=== PATIENT | male | born 1940 | race Caucasian/White ===

== ENCOUNTER 2018-01-14 10:05 | Inpatient (IN) | payer MEDICARE ==
[~2018-01-14] VITALS: Ht 180.3 cm; Wt 104.5 kg
[~2018-01-14 10:05] MED LIST: ALBU90OI6 INH; ASPI325EC PO; ASPI81CH PO; CARV6.25 PO; CEPH500 PO; CETI5 PO; DIGO.125 PO; DILT120 PO; FEBU40TA PO; FOLI1 PO; FURO20 PO; Ferosul325 MG PO; HYDCOR1TC TOP; LORA1 PO; Lisinopril2.5 MG PO; METO2.5 PO; MULVITMIND PO; THIA100 PO; VITAMIN B COMPLEX PO; XARELTO15 MG PO
[2018-01-14 10:20] LABS: Calcium, Ionized (POC) 1.06 mmol/L (1.10-1.46); Chloride (POC) 85 mmol/L (98-108); Creatinine (POC) 2.2 mg/dL (0.8-1.3); Glucose (ISTAT POC) 190 mg/dL (70-99); Hemoglobin (POC) 9.5 g/dL (13.5-17.5); Sodium (POC) 133 mmol/L (135-148); Total CO2 (POC) 36 mmol/L (21-32)
[2018-01-14 10:23] LABS: BASOPHILS ABSOLUTE AUTO 0.07 K/mm3 (0.00-0.23); BASOPHILS PERCENT AUTO 1 % (0-2); EOSINOPHILS ABSOLUTE AUTO 0.14 K/mm3 (0.00-0.68); EOSINOPHILS PERCENT AUTO 1 % (0-6); Hematocrit 28.4 % (37.0-53.0); Hemoglobin 9.9 g/dL (13.5-17.5); IMMATURE GRAN ABSOLUTE AUTO 0.49 K/mm3 (0.00-0.10); IMMATURE GRAN PERCENT AUTO 4 % (0-1); LYMPHOCYTES ABSOLUTE AUTO 1.89 K/mm3 (0.84-5.20); LYMPHOCYTES PERCENT AUTO 15 % (21-46); MONOCYTES PERCENT AUTO 19 % (4-13); Mean Corpuscular HGB 35.7 pg (26.0-34.0); Mean Corpuscular HGB Conc 34.9 g/dL (31.5-36.5); Mean Corpuscular Volume 103 fL (80-100); Mean Platelet Volume 9.2 fL (9.1-12.4); NEUTROPHILS ABSOLUTE AUTO 7.66 K/mm3 (1.96-9.15); NEUTROPHILS PERCENT AUTO 61 % (41-73); NRBC ABSOLUTE 0.02 K/mm3 (0.00-0.02); NRBC Auto 0.2 /100 WBC (0.0-0.2); Platelet Count 215 K/mm3 (150-400); RDW Coefficient Variation 12.4 % (11.7-14.2); RDW Standard Deviation 45.4 fL (35.1-46.3); Red Blood Cell Count 2.77 M/mm3 (4.30-5.90); White Blood Cell Count 12.65 K/mm3 (4.00-11.30)
[2018-01-14 10:34] LABS: International Normalized Ratio 1.26; Prothrombin Time Results 13.2 Sec (9.7-11.5)
[2018-01-14] MEDS ORDERED: FURO40 (10:35)
[2018-01-14] MEDS ORDERED: Zyloprim100 MG PO (10:36)
[2018-01-14 10:46] LABS: Alanine Aminotransfer (ALT/SGP 61 U/L (12-78); Albumin, Blood 2.8 g/dL (3.4-5.0); Albumin/Globulin Ratio 0.7 (0.8-1.8); Alk Phos 79 U/L (50-136); Anion Gap 12 mmol/L (6-16); Aspartate Aminotrans (AST/SGOT 38 U/L (12-37); Bilirubin, Total 0.8 mg/dL (0.1-1.0); Blood Urea Nitrogen 47 mg/dL (8-24); Bun/Creatinine Ratio 23.6 (12.0-20.0); CO2, Blood 33 mmol/L (21-32); Calcium, Blood 8.9 mg/dL (8.5-10.1); Chloride, Blood 89 mmol/L (98-108); Creatinine, Blood 1.99 mg/dL (0.60-1.20); Globulin, Blood 3.9 g/dL (2.2-4.0); Glomerular Filtration Rate 35 (60-); Glucose, Blood 188 mg/dL (70-99); Magnesium, Blood 1.6 mg/dL (1.6-2.4); Sodium, Blood 134 mmol/L (136-145); Total Protein, Blood 6.7 g/dL (6.4-8.2); Troponin I <0.015 ng/mL (0.000-0.040)
[2018-01-14] MEDS ORDERED: THERA M PLUS T1 EACH PO (14:02)
[2018-01-14] MEDS ORDERED: CHOL10002 PO (14:03)
[2018-01-14 15:03] LABS: Hematocrit 25.2 % (37.0-53.0); Hemoglobin 8.7 g/dL (13.5-17.5)
[2018-01-14 15:37] LABS: Blood, Urine 1+ (Neg); Glucose Qualitative, Urine Neg (Neg); Ketones, Urine 2+ (Neg); Leukocyte Esterase, Urine 2+ (Neg); Nitrite, Urine Neg (Neg); Protein, Urine 2+ (Neg); Urobilinogen, Urine 2+ (Normal)
[2018-01-14 16:07] LABS: Appearance, Urine Hazy (Clear); Color, Urine Yellow (P-Yellow)
[2018-01-14 16:09] LABS: Red Blood Cells, Urine Not Seen /hpf (0-2); White Blood Cells, Urine Not Seen /hpf (0-5)
[2018-01-14 16:11] LABS: Bacteria Not Seen /hpf; Squamous Epithelial Cells Not Seen /hpf (Few)
[2018-01-14 20:40] LABS: Hematocrit 22.3 % (37.0-53.0); Hemoglobin 7.6 g/dL (13.5-17.5)
[2018-01-15 02:13] LABS: Hematocrit 22.9 % (37.0-53.0); Hemoglobin 7.7 g/dL (13.5-17.5)
[2018-01-15 02:29] LABS: Creatinine, Blood 2.15 mg/dL (0.60-1.20); Potassium, Blood 3.2 mmol/L (3.5-5.5)
[2018-01-15 08:19] LABS: Hematocrit 22.1 % (37.0-53.0); Hemoglobin 7.5 g/dL (13.5-17.5)
[2018-01-15 14:32] LABS: Hematocrit 21.3 % (37.0-53.0); Hemoglobin 7.5 g/dL (13.5-17.5)
[2018-01-16 04:43] LABS: Bun/Creatinine Ratio 22.2 (12.0-20.0); Creatinine, Blood 1.85 mg/dL (0.60-1.20); Potassium, Blood 3.5 mmol/L (3.5-5.5)
[2018-01-16 10:51] LABS: Hematocrit 21.7 % (37.0-53.0); Hemoglobin 7.4 g/dL (13.5-17.5)
[2018-01-16 22:10] LABS: Hematocrit 21.1 % (37.0-53.0); Hemoglobin 7.1 g/dL (13.5-17.5)
[2018-01-17 04:42] LABS: Bun/Creatinine Ratio 21.3 (12.0-20.0); Calcium, Blood 7.8 mg/dL (8.5-10.1); Creatinine, Blood 1.74 mg/dL (0.60-1.20); Potassium, Blood 3.3 mmol/L (3.5-5.5)
[2018-01-17 10:05] LABS: Hematocrit 22.6 % (37.0-53.0); Hemoglobin 7.7 g/dL (13.5-17.5)
[2018-01-17 22:09] LABS: Hematocrit 23.2 % (37.0-53.0); Hemoglobin 7.7 g/dL (13.5-17.5)
[2018-01-18 04:17] LABS: BASOPHILS ABSOLUTE AUTO 0.01 K/mm3 (0.00-0.23); BASOPHILS PERCENT AUTO 0 % (0-2); EOSINOPHILS ABSOLUTE AUTO 0.13 K/mm3 (0.00-0.68); EOSINOPHILS PERCENT AUTO 2 % (0-6); Hematocrit 21.6 % (37.0-53.0); Hemoglobin 7.4 g/dL (13.5-17.5); IMMATURE GRAN ABSOLUTE AUTO 0.19 K/mm3 (0.00-0.10); IMMATURE GRAN PERCENT AUTO 4 % (0-1); LYMPHOCYTES ABSOLUTE AUTO 0.92 K/mm3 (0.84-5.20); LYMPHOCYTES PERCENT AUTO 17 % (21-46); MONOCYTES ABSOLUTE AUTO 1.16 K/mm3 (0.16-1.47); MONOCYTES PERCENT AUTO 22 % (4-13); Mean Corpuscular HGB 35.6 pg (26.0-34.0); Mean Corpuscular HGB Conc 34.3 g/dL (31.5-36.5); Mean Corpuscular Volume 104 fL (80-100); Mean Platelet Volume 8.9 fL (9.1-12.4); NEUTROPHILS ABSOLUTE AUTO 2.97 K/mm3 (1.96-9.15); NEUTROPHILS PERCENT AUTO 55 % (41-73); Platelet Count 153 K/mm3 (150-400); RDW Coefficient Variation 13.7 % (11.7-14.2); RDW Standard Deviation 50.6 fL (35.1-46.3); Red Blood Cell Count 2.08 M/mm3 (4.30-5.90); White Blood Cell Count 5.38 K/mm3 (4.00-11.30)
[2018-01-18 04:35] LABS: Bun/Creatinine Ratio 17.8 (12.0-20.0); Calcium, Blood 7.9 mg/dL (8.5-10.1); Creatinine, Blood 1.69 mg/dL (0.60-1.20); Potassium, Blood 3.6 mmol/L (3.5-5.5)
[2018-01-19 04:59] LABS: BASOPHILS ABSOLUTE AUTO 0.02 K/mm3 (0.00-0.23); BASOPHILS PERCENT AUTO 0 % (0-2); EOSINOPHILS ABSOLUTE AUTO 0.14 K/mm3 (0.00-0.68); EOSINOPHILS PERCENT AUTO 2 % (0-6); Hematocrit 26.2 % (37.0-53.0); Hemoglobin 8.8 g/dL (13.5-17.5); IMMATURE GRAN ABSOLUTE AUTO 0.15 K/mm3 (0.00-0.10); IMMATURE GRAN PERCENT AUTO 2 % (0-1); LYMPHOCYTES PERCENT AUTO 16 % (21-46); MONOCYTES ABSOLUTE AUTO 1.05 K/mm3 (0.16-1.47); MONOCYTES PERCENT AUTO 17 % (4-13); Mean Corpuscular HGB 32.6 pg (26.0-34.0); Mean Corpuscular HGB Conc 33.6 g/dL (31.5-36.5); Mean Platelet Volume 9.3 fL (9.1-12.4); NEUTROPHILS ABSOLUTE AUTO 3.92 K/mm3 (1.96-9.15); NEUTROPHILS PERCENT AUTO 63 % (41-73); Platelet Count 180 K/mm3 (150-400); RDW Coefficient Variation 19.4 % (11.7-14.2); White Blood Cell Count 6.28 K/mm3 (4.00-11.30)
[2018-01-19 05:01] LABS: Mean Corpuscular Volume 97 fL (80-100)
[2018-01-19 05:16] LABS: Albumin, Blood 2.2 g/dL (3.4-5.0); Anion Gap 8 mmol/L (6-16); Blood Urea Nitrogen 24 mg/dL (8-24); Bun/Creatinine Ratio 15.3 (12.0-20.0); CO2, Blood 31 mmol/L (21-32); Chloride, Blood 97 mmol/L (98-108); Creatinine, Blood 1.57 mg/dL (0.60-1.20); Glomerular Filtration Rate 46 (60-); Glucose, Blood 99 mg/dL (70-99); Potassium, Blood 3.6 mmol/L (3.5-5.5); Sodium, Blood 136 mmol/L (136-145)
[2018-01-20 04:44] LABS: BASOPHILS ABSOLUTE AUTO 0.03 K/mm3 (0.00-0.23); BASOPHILS PERCENT AUTO 0 % (0-2); EOSINOPHILS ABSOLUTE AUTO 0.15 K/mm3 (0.00-0.68); EOSINOPHILS PERCENT AUTO 2 % (0-6); Hematocrit 27.1 % (37.0-53.0); Hemoglobin 9.1 g/dL (13.5-17.5); IMMATURE GRAN ABSOLUTE AUTO 0.11 K/mm3 (0.00-0.10); IMMATURE GRAN PERCENT AUTO 1 % (0-1); LYMPHOCYTES ABSOLUTE AUTO 0.92 K/mm3 (0.84-5.20); LYMPHOCYTES PERCENT AUTO 12 % (21-46); MONOCYTES ABSOLUTE AUTO 0.84 K/mm3 (0.16-1.47); MONOCYTES PERCENT AUTO 11 % (4-13); Mean Corpuscular HGB 33.2 pg (26.0-34.0); Mean Corpuscular HGB Conc 33.6 g/dL (31.5-36.5); Mean Corpuscular Volume 99 fL (80-100); NEUTROPHILS ABSOLUTE AUTO 5.62 K/mm3 (1.96-9.15); NEUTROPHILS PERCENT AUTO 73 % (41-73); Platelet Count 193 K/mm3 (150-400); RDW Standard Deviation 64.7 fL (35.1-46.3); Red Blood Cell Count 2.74 M/mm3 (4.30-5.90); White Blood Cell Count 7.67 K/mm3 (4.00-11.30)
[2018-01-20 05:10] LABS: Albumin, Blood 2.3 g/dL (3.4-5.0); Anion Gap 8 mmol/L (6-16); Blood Urea Nitrogen 23 mg/dL (8-24); Bun/Creatinine Ratio 14.6 (12.0-20.0); CO2, Blood 29 mmol/L (21-32); Calcium, Blood 8.2 mg/dL (8.5-10.1); Chloride, Blood 98 mmol/L (98-108); Creatinine, Blood 1.57 mg/dL (0.60-1.20); Glomerular Filtration Rate 46 (60-); Glucose, Blood 105 mg/dL (70-99); Phosphorus, Blood 2.3 mg/dL (2.5-4.9); Potassium, Blood 3.8 mmol/L (3.5-5.5); Sodium, Blood 135 mmol/L (136-145)
[2018-01-21 03:55] LABS: Hematocrit 27.4 % (37.0-53.0); Hemoglobin 9.1 g/dL (13.5-17.5); Mean Corpuscular HGB 32.4 pg (26.0-34.0); Mean Corpuscular HGB Conc 33.2 g/dL (31.5-36.5); Mean Corpuscular Volume 98 fL (80-100); Mean Platelet Volume 9.3 fL (9.1-12.4); Platelet Count 199 K/mm3 (150-400); RDW Coefficient Variation 16.9 % (11.7-14.2); RDW Standard Deviation 59.7 fL (35.1-46.3); Red Blood Cell Count 2.81 M/mm3 (4.30-5.90)
[2018-01-21 04:09] LABS: Albumin, Blood 2.4 g/dL (3.4-5.0); Anion Gap 8 mmol/L (6-16); Blood Urea Nitrogen 22 mg/dL (8-24); Bun/Creatinine Ratio 14.6 (12.0-20.0); CO2, Blood 28 mmol/L (21-32); Calcium, Blood 8.3 mg/dL (8.5-10.1); Chloride, Blood 99 mmol/L (98-108); Creatinine, Blood 1.51 mg/dL (0.60-1.20); Glomerular Filtration Rate 48 (60-); Glucose, Blood 98 mg/dL (70-99); Phosphorus, Blood 2.5 mg/dL (2.5-4.9); Potassium, Blood 3.8 mmol/L (3.5-5.5); Sodium, Blood 135 mmol/L (136-145)
[2018-01-21] MEDS ORDERED: THIA100 PO (13:06)
[2018-01-21] MEDS ORDERED: FOLI1 PO (13:07)
[2018-01-21] MEDS ORDERED: PANT40 PO (13:07)
== END 2018-01-21 14:20 | disposition home or self-care (01) | DRG 378 ==
LOC: ER 10:05 → ICUE 11:28 → MEDS 11:28 → PCU 11:28 → ER 12:32 → ICUE 13:46 → PCU 01-15 17:22 → SURS 01-17 19:53
PROVIDERS: Emergency Medicine; Family Medicine; Internal Medicine Gastroenterology; Student in an Organized Health Care Education/Training Program
PROC: 0DJ08ZZ Inspection of Upper Intestinal Tract, Via Natural or Artificial Opening Endoscopic (ICD-10-PCS; principal; 2018-01-14)
PROC: 5A09357 Assistance with Respiratory Ventilation, Less than 24 Consecutive Hours, Continuous Positive Airway Pressure (ICD-10-PCS; 2018-01-14)
DX: K92.2 Gastrointestinal hemorrhage, unspecified (principal); I13.0 Hypertensive heart and chronic kidney disease with heart failure and stage 1 through stage 4 chronic kidney disease, or unspecified chronic kidney disease; I50.32 Chronic diastolic (congestive) heart failure; D62 Acute posthemorrhagic anemia; I42.9 Cardiomyopathy, unspecified; R55 Syncope and collapse; E86.1 Hypovolemia; I95.9 Hypotension, unspecified; G47.33 Obstructive sleep apnea (adult) (pediatric); N28.9 Disorder of kidney and ureter, unspecified; I48.2 Chronic atrial fibrillation; E66.9 Obesity, unspecified; N18.3 Chronic kidney disease, stage 3 (moderate); K59.00 Constipation, unspecified; F10.20 Alcohol dependence, uncomplicated; E87.6 Hypokalemia; D75.1 Secondary polycythemia; R26.81 Unsteadiness on feet; R74.8 Abnormal levels of other serum enzymes; R16.2 Hepatomegaly with splenomegaly, not elsewhere classified; K29.60 Other gastritis without bleeding; K29.80 Duodenitis without bleeding; Z66 Do not resuscitate; Z68.30 Body mass index [BMI] 30.0-30.9, adult; Z88.2 Allergy status to sulfonamides; Z79.01 Long term (current) use of anticoagulants; Z79.899 Other long term (current) drug therapy
CPT/HCPCS: 36415; 71045; 74018; 80047; 80048; 80053; 80069; 81001; 82272; 83605; 83735; 83880; 84484; 85014; 85018; 85025; 85027; 85610; 86850; 86900; 86901; 86923; 93005; 93010; 94660; 94760; 94762; 96365; 96375; 97116; 97161; 97530; 99285; C9113; G0480; G8978; G8979; J1650; J3480; J7030; J7060; J7120; P9016

== ENCOUNTER → 2018-05-27 | Outpatient (CLI) | payer MEDICARE ==
[~2018-05-27] MED LIST changes: +CHOL10002 PO; +FURO40; +PANT40 PO; +THERA M PLUS T1 EACH PO; +Zyloprim100 MG PO
[2018-05-27 15:20] LABS: BASOPHILS ABSOLUTE AUTO 0.03 K/mm3 (0.00-0.23); BASOPHILS PERCENT AUTO 0 % (0-2); EOSINOPHILS ABSOLUTE AUTO 0.04 K/mm3 (0.00-0.68); EOSINOPHILS PERCENT AUTO 0 % (0-6); Hematocrit 35.3 % (37.0-53.0); IMMATURE GRAN ABSOLUTE AUTO 0.26 K/mm3 (0.00-0.10); IMMATURE GRAN PERCENT AUTO 2 % (0-1); LYMPHOCYTES ABSOLUTE AUTO 0.53 K/mm3 (0.84-5.20); LYMPHOCYTES PERCENT AUTO 3 % (21-46); MONOCYTES ABSOLUTE AUTO 1.36 K/mm3 (0.16-1.47); MONOCYTES PERCENT AUTO 9 % (4-13); Mean Corpuscular HGB 34.7 pg (26.0-34.0); Mean Corpuscular HGB Conc 36.8 g/dL (31.5-36.5); Mean Corpuscular Volume 94 fL (80-100); Mean Platelet Volume 9.2 fL (9.1-12.4); NEUTROPHILS ABSOLUTE AUTO 13.26 K/mm3 (1.96-9.15); NEUTROPHILS PERCENT AUTO 86 % (41-73); Platelet Count 180 K/mm3 (150-400); RDW Coefficient Variation 12.1 % (11.7-14.2); RDW Standard Deviation 41.5 fL (35.1-46.3); Red Blood Cell Count 3.75 M/mm3 (4.30-5.90); White Blood Cell Count 15.48 K/mm3 (4.00-11.30)
[2018-05-27 15:34] LABS: Alanine Aminotransfer (ALT/SGP 124 U/L (12-78); Albumin, Blood 3.3 g/dL (3.4-5.0); Albumin/Globulin Ratio 0.8 (0.8-1.8); Alk Phos 95 U/L (40-126); Anion Gap 17 mmol/L (6-16); Aspartate Aminotrans (AST/SGOT 45 U/L (12-37); Bilirubin, Total 1.4 mg/dL (0.1-1.0); Blood Urea Nitrogen 30 mg/dL (8-24); Bun/Creatinine Ratio 10.1 (12.0-20.0); CO2, Blood 23 mmol/L (21-32); Calcium, Blood 9.6 mg/dL (8.5-10.1); Chloride, Blood 83 mmol/L (98-108); Creatinine, Blood 2.97 mg/dL (0.60-1.20); Globulin, Blood 3.9 g/dL (2.2-4.0); Glomerular Filtration Rate 21 (60-); Glucose, Blood 160 mg/dL (70-99); Potassium, Blood 3.8 mmol/L (3.5-5.5); Sodium, Blood 123 mmol/L (136-145); Total Protein, Blood 7.2 g/dL (6.4-8.2)
[2018-05-27 15:35] LABS: Troponin I <0.017 ng/mL (0.000-0.040)
== END | disposition home or self-care (01) ==
LOC: LAB EV 15:16 → LAB SHORT 15:16
PROVIDERS: Physician Assistant
DX: R07.9 Chest pain, unspecified (principal); R53.83 Other fatigue
CPT/HCPCS: 80053; 83880; 84484; 85025; 87086; 87147

== ENCOUNTER 2019-05-10 11:09 | Inpatient (IN) | payer MEDICARE ==
[~2019-05-10] VITALS: Ht 180.3 cm; Wt 121.4 kg
[~2019-05-10 11:09] MED LIST changes: -CHOL10002 PO; -FURO40; -Ferosul325 MG PO; -PANT40 PO; -THERA M PLUS T1 EACH PO; -VITAMIN B COMPLEX PO; -Zyloprim100 MG PO
[2019-05-10 11:44] LABS: BASOPHILS ABSOLUTE AUTO 0.03 K/mm3 (0.00-0.23); BASOPHILS PERCENT AUTO 0 % (0-2); EOSINOPHILS ABSOLUTE AUTO 0.19 K/mm3 (0.00-0.68); EOSINOPHILS PERCENT AUTO 2 % (0-6); Hematocrit 33.4 % (37.0-53.0); Hemoglobin 11.4 g/dL (13.5-17.5); IMMATURE GRAN PERCENT AUTO 3 % (0-1); LYMPHOCYTES ABSOLUTE AUTO 0.88 K/mm3 (0.84-5.20); LYMPHOCYTES PERCENT AUTO 11 % (21-46); MONOCYTES ABSOLUTE AUTO 1.01 K/mm3 (0.16-1.47); MONOCYTES PERCENT AUTO 13 % (4-13); Mean Corpuscular HGB 34.3 pg (26.0-34.0); Mean Corpuscular HGB Conc 34.1 g/dL (31.5-36.5); Mean Corpuscular Volume 101 fL (80-100); Mean Platelet Volume 9.4 fL (9.1-12.4); NEUTROPHILS ABSOLUTE AUTO 5.76 K/mm3 (1.96-9.15); NEUTROPHILS PERCENT AUTO 71 % (41-73); Platelet Count 117 K/mm3 (150-400); RDW Coefficient Variation 12.6 % (11.7-14.2); RDW Standard Deviation 46.6 fL (35.1-46.3); Red Blood Cell Count 3.32 M/mm3 (4.30-5.90); White Blood Cell Count 8.07 K/mm3 (4.00-11.30)
[2019-05-10 12:00] LABS: Alanine Aminotransfer (ALT/SGP 96 U/L (12-78); Albumin/Globulin Ratio 0.8 (0.8-1.8); Alk Phos 169 U/L (50-136); Anion Gap 12 mmol/L (6-16); Aspartate Aminotrans (AST/SGOT 50 U/L (12-37); Bilirubin, Total 1.3 mg/dL (0.1-1.0); Blood Urea Nitrogen 60 mg/dL (8-24); Bun/Creatinine Ratio 9.5 (12.0-20.0); CO2, Blood 26 mmol/L (21-32); Calcium, Blood 8.5 mg/dL (8.5-10.1); Chloride, Blood 85 mmol/L (98-108); Creatinine, Blood 6.32 mg/dL (0.60-1.20); Glomerular Filtration Rate 9 (60-); Glucose, Blood 126 mg/dL (70-99); Potassium, Blood 4.3 mmol/L (3.5-5.5); Sodium, Blood 123 mmol/L (136-145); Troponin I <0.015 ng/mL (0.000-0.040)
[2019-05-10] MEDS ORDERED: Coreg12.5 MG PO (14:26)
[2019-05-10] MEDS ORDERED: Zyloprim100 MG PO (14:26)
[2019-05-10] MEDS ORDERED: PANT40 PO (14:27)
[2019-05-10] MEDS ORDERED: Ferosul325 MG PO (14:52)
[2019-05-10] MEDS ORDERED: FURO40 PO (14:53)
[2019-05-10] MEDS ORDERED: THERA M PLUS T1 EACH PO (14:53)
[2019-05-10] MEDS ORDERED: VITAMIN D31000 UNI2 PO (14:53)
[2019-05-10] MEDS ORDERED: VITAMIN B COMP1 EACH PO (14:53)
[2019-05-10 15:37] LABS: Percent Saturation 95.3 % (20.0-50.0)
--- NOTE | 2019-05-10 19:40 | NUR ---
PATIENT TALKING THROUGH HIS TEETH. PATIENT ASKED IF HE FEELS DIFFERENT, STATES HE DOES BUT DOESN'T KNOW HOW. PATIENT DENIES ANY PAIN. PATIENT IS NOT MAKING ANY INDEPENDENT MOVEMENTS. REPOSITIONED WITH POSTAL SORTING OFFICER. PATIENT BLADDER SCANNED HAS ONLY 36CC NOTED IN THE BLADDER. APPLIED POWDER TO REDNESS IN GROINING,
[2019-05-11 04:02] LABS: BASOPHILS ABSOLUTE AUTO 0.05 K/mm3 (0.00-0.23); BASOPHILS PERCENT AUTO 1 % (0-2); EOSINOPHILS PERCENT AUTO 3 % (0-6); Hematocrit 29.9 % (37.0-53.0); Hemoglobin 10.4 g/dL (13.5-17.5); IMMATURE GRAN ABSOLUTE AUTO 0.25 K/mm3 (0.00-0.10); IMMATURE GRAN PERCENT AUTO 4 % (0-1); LYMPHOCYTES PERCENT AUTO 12 % (21-46); MONOCYTES ABSOLUTE AUTO 0.95 K/mm3 (0.16-1.47); MONOCYTES PERCENT AUTO 14 % (4-13); Mean Corpuscular HGB 35.5 pg (26.0-34.0); Mean Corpuscular HGB Conc 34.8 g/dL (31.5-36.5); Mean Corpuscular Volume 102 fL (80-100); Mean Platelet Volume 9.5 fL (9.1-12.4); NEUTROPHILS ABSOLUTE AUTO 4.38 K/mm3 (1.96-9.15); NEUTROPHILS PERCENT AUTO 66 % (41-73); Platelet Count 112 K/mm3 (150-400); RDW Coefficient Variation 12.6 % (11.7-14.2); RDW Standard Deviation 47.3 fL (35.1-46.3); Red Blood Cell Count 2.93 M/mm3 (4.30-5.90); White Blood Cell Count 6.63 K/mm3 (4.00-11.30)
[2019-05-11 04:21] LABS: Alanine Aminotransfer (ALT/SGP 80 U/L (12-78); Albumin, Blood 2.6 g/dL (3.4-5.0); Albumin/Globulin Ratio 0.8 (0.8-1.8); Alk Phos 146 U/L (50-136); Anion Gap 12 mmol/L (6-16); Aspartate Aminotrans (AST/SGOT 41 U/L (12-37); Bilirubin, Total 1.2 mg/dL (0.1-1.0); Blood Urea Nitrogen 65 mg/dL (8-24); Bun/Creatinine Ratio 10.1 (12.0-20.0); CO2, Blood 25 mmol/L (21-32); Calcium, Blood 8.3 mg/dL (8.5-10.1); Chloride, Blood 88 mmol/L (98-108); Creatinine, Blood 6.46 mg/dL (0.60-1.20); Globulin, Blood 3.3 g/dL (2.2-4.0); Glomerular Filtration Rate 9 (60-); Glucose, Blood 141 mg/dL (70-99); Magnesium, Blood 1.7 mg/dL (1.6-2.4); Phosphorus, Blood 2.5 mg/dL (2.5-4.9); Potassium, Blood 3.9 mmol/L (3.5-5.5); Sodium, Blood 125 mmol/L (136-145); Total Protein, Blood 5.9 g/dL (6.4-8.2)
--- NOTE | 2019-05-11 05:47 | NUR ---
PATIENT HAS NOT SLEPT MUCH THROUGHT THE NIGHT. PATIENT WITH IN THE LAST HOUR OR SO STARTED TO MOVE AROUND IN THE BED INDEPENDENTLY. PATIENT REPOSITIONED FREQUENTLY. NPO AT THIS TIME. VITALS STABLE.
--- NOTE | 2019-05-11 08:07 | NUR ---
COREG VS MIDODRINE CALLED DR BASSETT TO GET HER INSIGHT IN GIVING COREG AND MIDODRINE. PT BP NOT LOW. AFIB WELL CONTROLLED. CONTINUE POT.
[2019-05-12 04:05] LABS: Hematocrit 29.9 % (37.0-53.0); Hemoglobin 10.2 g/dL (13.5-17.5)
[2019-05-12 04:35] LABS: Albumin, Blood 2.7 g/dL (3.4-5.0); Albumin/Globulin Ratio 0.8 (0.8-1.8); Bilirubin, Direct 0.6 mg/dL (0.0-0.3); Bilirubin, Indirect 0.4 mg/dL (0.1-0.7); Bun/Creatinine Ratio 11.2 (12.0-20.0); Calcium, Blood 8.4 mg/dL (8.5-10.1); Creatinine, Blood 6.34 mg/dL (0.60-1.20); Globulin, Blood 3.2 g/dL (2.2-4.0); Magnesium, Blood 1.6 mg/dL (1.6-2.4); Potassium, Blood 4.1 mmol/L (3.5-5.5); Total Protein, Blood 5.9 g/dL (6.4-8.2); Uric Acid, Blood 11.9 mg/dL (3.5-7.2)
--- NOTE | 2019-05-12 05:09 | NUR ---
SHIFT SUMMARY PT HAS REMAINED AOX4 THROUGHOUT THE NIGHT. VSS. PLEASANT AND COOPERATIVE WITH CARE. PT HAS REMAINED ON BEDREST AND ASSISTED WITH REPOSITIONING THROUGHOUT THE NIGHT. HAS RESTED THROUGHOUT SOME OF THE NIGHT WITH HOME BIPAP IN PLACE WITH 3L O2 BLEED IN. PT REPORTS THAT HE OCCASIONALLY WILL USE 2-3L O2 AT HOME NEEDED. O2 SATS HAVE REMAINED >90% ON RA OR HOME BIPAP. PT HAS BEEN INCONTINENT OF STOOL MULTIPLE TIMES THROUGHOUT THE NIGHT. MALONE CATHETER WITH MINIMAL OUTPUT AND REMAINS IN BUCKET OF ICE FOR 24HOUR URINE SCREENING THAT ENDS AT APPROXIMATELY 1000 THIS AM. PT MEDICATED ONCE FOR PAIN TO ABDOMEN THAT DECREASED WITH ORDERED MEDICATIONS. NO OTHER CHANGES NOTED FROM INITIAL ASSESSMENT. BED IN LOW POSITIONK, CALL LIGHT IN REACH. BED ALARM SET FOR SAFETY.
[2019-05-12 12:46] LABS: Protein, Urine Quantitative 122.6 mg/dL (0.0-11.9)
[2019-05-12 16:39] LABS: Source, Urine Clean Catch
[2019-05-12 16:43] LABS: Bilirubin, Urine Neg (Neg); Blood, Urine 5+ (Neg); Glucose Qualitative, Urine Neg (Neg); Ketones, Urine Neg (Neg); Leukocyte Esterase, Urine 2+ (Neg); Nitrite, Urine Neg (Neg); Protein, Urine 1+ (Neg); Urobilinogen, Urine NORM (Normal)
[2019-05-12 16:49] LABS: Appearance, Urine Clear (Clear); Color, Urine Yellow (P-Yellow)
[2019-05-12 16:50] LABS: Red Blood Cells, Urine 25-50 /hpf (0-2)
[2019-05-12 16:51] LABS: Bacteria Few /hpf; Squamous Epithelial Cells Few /hpf (Few)
--- NOTE | 2019-05-12 18:11 | NUR ---
SHIFT SUMMARY PT ALERT AND ORIENTED. VS STABLE. O2 SATS REMAIN ABOVE 90% ON RA. PT USED HIS HOME BIPAP NEEDED WITH 3L BLEED IN FOR SLEEPING. PT DENIES ANY PAIN. PT REFUSED TO GET UP TO CHAIR FOR MEALS. PT INCONTINENT OF BOWEL. ATTENDS IN PLACE. MALONE CATHETER PATENT AND DRAINING CLEAR YELLOW URINE. PT CONTINUES TO HAVE MINIMAL OUTPUT. CLINIMIX INFUSING PER ORDERS. PT REPOSITIONED Q2H. WILL CONTINUE TO MONITOR AND REPORT TO ONCOMING RN. CALL LIGHT IN REACH.
--- NOTE | 2019-05-12 23:42 | NUR ---
PROVIDER CONTACTED PT REQUESTING MEDICATION TO HELP HIM SLEEP. PT REPORTS THAT HE DOES NOT NORMALLY REQUIRE MEDICATION TO HELP HIM SLEEP AT HOME. [facility] EM CONTACTED AND ORDERS RECEIVED FOR MELATONIN 5MG PO. WILL INPUT ORDERS AND ADMINISTER.
[2019-05-13 05:02] LABS: Hemoglobin 10.2 g/dL (13.5-17.5)
[2019-05-13 05:25] LABS: Albumin, Blood 2.7 g/dL (3.4-5.0); Anion Gap 10 mmol/L (6-16); Blood Urea Nitrogen 77 mg/dL (8-24); Bun/Creatinine Ratio 12.7 (12.0-20.0); CO2, Blood 24 mmol/L (21-32); Calcium, Blood 8.2 mg/dL (8.5-10.1); Chloride, Blood 93 mmol/L (98-108); Creatinine, Blood 6.08 mg/dL (0.60-1.20); Glomerular Filtration Rate 10 (60-); Glucose, Blood 137 mg/dL (70-99); Magnesium, Blood 1.7 mg/dL (1.6-2.4); Phosphorus, Blood 2.7 mg/dL (2.5-4.9); Potassium, Blood 4.2 mmol/L (3.5-5.5); Sodium, Blood 127 mmol/L (136-145)
--- NOTE | 2019-05-13 05:33 | NUR ---
SHIFT SUMMARY PT HAS REMAINED AOX4 THROUGHOUT SHIFT. VSS. PLEASANT AND COOPERATIVE WITH CARE. PT HAS RESTED IN BED THROUGHOUT THE NIGHT. PT ASSISTS WITH TURNS WHEN PROMPTED, BUT ALSO REFUSES TURNING MANY TIMES WHEN ATTEMPTED. PT REMAINS INCONTINENT OF STOOL; ENCOURAGED TO CALL FOR ASSISTANCE WITH BATHROOM USE TO PRESERVE SKIN INTEGRITY. PT HAS RESTED IN BED THROUGHOUT MUCH OF THE NIGHT WITH HOME BIPAP IN PLACE WITH 3L O2 BLEED IN. O2 SATS HAVE REMAINED >90% ON BIPAP OR RA WHILE AWAKE. NO OTHER CHANGES NOTED FROM INITIAL ASSESSMENT. WILL CONTINUE TO MONITOR AND REPORT TO ONCOMING SHIFT RN. BED IN LOW POSITION, CALL LIGHT IN REACH.
--- NOTE | 2019-05-13 18:50 | NUR ---
SHIFT SUMMARY PT ALERT AND ORIENTED. VS STABLE. 02 SATS REMAIN ABOVE 90% ON RA. PT USES HOME BIPAP WITH 3L BLEED IN NEEDED FOR SLEEPING. PT DENIES ANY PAIN THIS SHIFT. PT UP TO CHAIR FOR MEALS. PT CHANGED TO MEDICAL STATUS THIS SHIFT. WILL CONTINUE TO MONITOR AND REPORT TO ONCOMING RN. CALL LIGHT IN REACH.
--- NOTE | 2019-05-13 20:00 | NUR ---
ASSUMED CARE PT IS CURRENTLY AOX4 AND RESTING IN BED WITH HOME BIPAP IN PLACE WITH 3L O2 BLEED IN. PT WAKES EASILY TO ANSWER QUESTIONS, BUT WILL QUICKLY CLOSES EYES AFTER RESPONSE TO FALL BACK TO SLEEP. PT RECENTLY BACK TO BED FROM BEING UP IN CHAIR, AND TRANSFERED WITH MINIMAL ASSIST. LUNG SOUNDS CLEAR IN UPPER LOBES WITH DIMINISHED BASES. NOTED TO HAVE 3+ PEDAL EDEMA WITH 2+ PITTING EDEMA IN BLEs. PT ALSO NOTED TO HAVE SWELLING IN R ARM WITH SOME SLIGHT REDNESS UNDER POWERGLIDE SITE. PT DENIES ANY PAIN TO ARM AT REST OR ON PALPATION. POWERGLIDE APPEARS TO FLUSH WELL WITHOUT DISCOMFORT TO THE PATIENT, BUT DOES NOT HAVE BLOOD RETURN. POWERGLIDE REMOVED R/T POSSIBLE INFILTRATION. SKIN BLANCHES AROUND SITE. SOME MINIMAL BRUISING NOTED AT INSERTION SITE THAT HAS BEEN PRESENT SINCE INSERTION. CLINIMIX REMAINS INFUSING AT 75 ML/HR PER ORDERS. MALONE IN PLACE PATENT AND DRAINING TO GRAVITY. WILL CONTINUE WITH MONITORING AND ASSESSMENT. BED IN LOWEST POSITION, CALL LIGHT IN REACH.
--- NOTE | 2019-05-13 23:17 | NUR ---
PT TRANSFER REPORT CALLED TO MICHELLE FRANCOIS AND PT TRANSFERED TO ROOM 362. PT PERSONAL BELONGINGS OF HOME BIPAP AND GLASSES SENT WITH PATIENT TO FLOOR.
--- NOTE | 2019-05-13 23:44 | NUR ---
05/13/19 2330 Transfer from PCU via bed and walked to new bed. INSTRUCTED SIGNALS COLLECTION TECHNICIAN SYSTEM AND BIPAP SET UP PER RT AT 3 LPM. WARM BLANKET GIVEN AND INSTRUCTED TO CALL IF HE NEEDS TO GET UP. VERBALIZES UNDERSTANDING. BED ALARM ON.
[2019-05-14 06:04] LABS: Albumin, Blood 2.6 g/dL (3.4-5.0); Anion Gap 8 mmol/L (6-16); Blood Urea Nitrogen 87 mg/dL (8-24); Bun/Creatinine Ratio 15.8 (12.0-20.0); CO2, Blood 25 mmol/L (21-32); Calcium, Blood 8.3 mg/dL (8.5-10.1); Chloride, Blood 97 mmol/L (98-108); Creatinine, Blood 5.52 mg/dL (0.60-1.20); Glomerular Filtration Rate 11 (60-); Glucose, Blood 136 mg/dL (70-99); Magnesium, Blood 1.7 mg/dL (1.6-2.4); Phosphorus, Blood 2.9 mg/dL (2.5-4.9); Potassium, Blood 4.3 mmol/L (3.5-5.5); Sodium, Blood 130 mmol/L (136-145)
--- NOTE | 2019-05-14 06:43 | NUR ---
05/14/19 0600 PT SLEPT WELL WITH BIPAP AND CONTINOUS PULSE OXIMETER. O2 SATS >93%. MALONE CATH PATENT. CLINIMIX IV FLUIDS RUNNING AT 75 ML/HOUR. REFUSED TO TURN ON SIDE THIS AM.
[2019-05-14 07:08] LABS: ANTIGLOMERULAR BM AB 3 units (0-20)
--- NOTE | 2019-05-14 11:31 | NUR ---
PATIENT WAS ABLE TO SPEAK THIS AM AND NOW WON'T ANSWER ANY QUESTIONS. R HAND IS CLENCHED TIGHTLY AND PATIENT UNABLE TO RELEASE. VISIBLE TREMORS AND APPEARS VERY ANXIOUS. AT BEDSIDE AND STATES THAT PATIENT WAS NOT LIKE THIS YESTERDAY. HR 112, RESP 32, TEMP INCREASED TO 100.6. VEW SCORE OF 5. CHARGE NURSE OBDULIO AND PHYSICAL THERAPIST JAK WHO SAW THE PATIENT YESTERDAY AT BEDSIDE TO HELP ASSESS THIS PATIENT. DR. BASSETT NOTIFIED X2 OF CHANGES IN PATIENT CONDITION. NO ORDERS RECEIVED AT THIS TIME.
[2019-05-14 12:45] LABS: BASOPHILS ABSOLUTE AUTO 0.04 K/mm3 (0.00-0.23); BASOPHILS PERCENT AUTO 0 % (0-2); EOSINOPHILS ABSOLUTE AUTO 0.14 K/mm3 (0.00-0.68); EOSINOPHILS PERCENT AUTO 1 % (0-6); Hematocrit 31.5 % (37.0-53.0); Hemoglobin 10.6 g/dL (13.5-17.5); IMMATURE GRAN ABSOLUTE AUTO 0.61 K/mm3 (0.00-0.10); IMMATURE GRAN PERCENT AUTO 6 % (0-1); LYMPHOCYTES ABSOLUTE AUTO 0.52 K/mm3 (0.84-5.20); LYMPHOCYTES PERCENT AUTO 5 % (21-46); MONOCYTES ABSOLUTE AUTO 0.85 K/mm3 (0.16-1.47); MONOCYTES PERCENT AUTO 8 % (4-13); Mean Corpuscular HGB 34.3 pg (26.0-34.0); Mean Corpuscular HGB Conc 33.7 g/dL (31.5-36.5); Mean Corpuscular Volume 102 fL (80-100); Mean Platelet Volume 9.3 fL (9.1-12.4); NEUTROPHILS ABSOLUTE AUTO 7.93 K/mm3 (1.96-9.15); NEUTROPHILS PERCENT AUTO 79 % (41-73); NRBC ABSOLUTE 0.05 K/mm3 (0.00-0.02); NRBC Auto 0.5 /100 WBC (0.0-0.2); Platelet Count 103 K/mm3 (150-400); RDW Coefficient Variation 13.4 % (11.7-14.2); RDW Standard Deviation 49.6 fL (35.1-46.3); Red Blood Cell Count 3.09 M/mm3 (4.30-5.90); White Blood Cell Count 10.09 K/mm3 (4.00-11.30)
[2019-05-14 14:07] LABS: A/G RATIO 1.1 (0.7-1.7); ALBUMIN 2.9 g/dL (2.9-4.4); ALPHA-1-GLOBULIN 0.3 g/dL (0.0-0.4); ALPHA-2-GLOBULIN 0.6 g/dL (0.4-1.0); ANA DIRECT Negative (Negative); ANTIMYELOPEROXIDASE (MPO) ABS <9.0 U/mL (0.0-9.0); ANTIPROTEINASE 3 (PR-3) ABS <3.5 U/mL (0.0-3.5); ATYPICAL PANCA <1:20 titer (Neg:<1:20); BETA GLOBULIN 0.7 g/dL (0.7-1.3); CYTOPLASMIC (C-ANCA) <1:20 titer (Neg:<1:20); GAMMA GLOBULIN 1.2 g/dL (0.4-1.8); GLOBULIN, TOTAL 2.7 g/dL (2.2-3.9); IMMUNOGLOBULIN A, QN, SERUM 513 mg/dL (61-437); IMMUNOGLOBULIN G, QN, SERUM 1112 mg/dL (700-1600); IMMUNOGLOBULIN M, QN, SERUM 63 mg/dL (15-143); M-SPIKE Not Observed g/dL (Not Observed); PERINUCLEAR (P-ANCA) <1:20 titer (Neg:<1:20); PROTEIN, TOTAL, SERUM 5.6 g/dL (6.0-8.5)
[2019-05-14 14:40] LABS: Source, Urine Catheter
[2019-05-14 14:45] LABS: Appearance, Urine Hazy (Clear); Blood, Urine 5+ (Neg); Color, Urine Yellow (P-Yellow); Glucose Qualitative, Urine Neg (Neg); Ketones, Urine Neg (Neg); Leukocyte Esterase, Urine 2+ (Neg); Nitrite, Urine Neg (Neg); Protein, Urine 2+ (Neg); Specific Gravity, Urine 1.015 (1.003-1.022); Urobilinogen, Urine NORM (Normal)
[2019-05-14 14:58] LABS: Bilirubin, Urine 1+ (Neg)
[2019-05-14 14:59] LABS: Bacteria Few /hpf; Red Blood Cells, Urine TNTC /hpf (0-2); Squamous Epithelial Cells Few /hpf (Few)
--- NOTE | 2019-05-14 16:09 | NUR ---
CALLED DR. BASSETT AGAIN TO LET HER KNOW THAT PATIENT CONTINUES NOT TO RESPOND TO QUESTIONS OR COMMUNICATE WITH STAFF. ATTEMPTED TO GIVE PATIENT A DRINK FROM A STRAW AND HE WAS UNABLE TO FIGURE OUT HOW TO USE A STRAW. GAVE PATIENT A DRINK FROM A SPOON AND HE CHOKED ON THE WATER. DOLORES ARRIAGA WORKED WITH PATIENT YESTERDAY AND AGAIN TODAY AND REPORTS THAT PATIENT WAS A MIN ASSIST TO STAND YESTERDAY AND TODAY IS UNABLE TO SIT ON THE SIDE OF THE BED WITHOUT FALLING OVER. DR. BASSETT ORDERED TO KEEP AN EYE ON THE VITALS AND REPORT CHANGES, NO OTHER ORDERS RECEIVED.
--- NOTE | 2019-05-14 17:18 | NUR ---
PATIENT ABLE TO GET UP TO CHAIR THIS AM WITH 2 ASSIST AND ABLE TO FEED HIMSELF. AFTER BREAKFAST PATIENT ASKED TO GET BACK TO BED. PATIENT STARTING HAVING TREMORS AND BECOMING LESS RESPONSIVE WITH STAFF. SAYS WORDS AT TIMES AND THEN AT OTHERS TIMES WON'T RESPOND AT ALL. AT BEDSIDE THROUGHOUT THE DAY AND STATES THAT PATIENT IS MUCH WORSE TODAY THAN YESTERDAY. THIS EVENING PATIENT WAS UNABLE TO DRINK OUT OF A STRAW AND UNABLE TO FEED HIMSELF. DR. BASSETT NOTIFIED OF CHANGES IN CONDITION AND CAME TO SEE PATIENT. PATIENT REMAINS ON BIPAP WITH 3LO2 BLEED IN OR NC. 20G IV TO R FA WNL, CLINIMIX INFUSING AT 50ML/HR. FEVER OF 100.6 THIS AFTERNOON HAS COME BACK DOWN TO NORMAL. 2-3+ GENERALIZED EDEMA. MALONE TO GRAVITY WITH ADEQUATE U/O.
--- NOTE | 2019-05-15 04:32 | NUR ---
SHIFT SUMMARY: PT IS ALERT AND ORIENTED, LETHARGIC EARLY IN THE NIGHT, MORE AWAKE AT THIS TIME. PT IS CALM AND COOPERATIVE WITH CARE. PT IS A 2 ASSIST FOR TRANSFERS. PT DID NOT USE HIS CALL LIGHT OVERNIGHT. IN VISITING AT THE START OF THE NIGHT. PT SLEPT MOST OF THE NIGHT WHEN NOT DISTURBED. BANANA BAG RUNNING ORDERED. MALONE PATENT AND DRAINING YELLOW URINE. PT REPORTS R. LEG PAIN, GAVE PRN FENTANYL. PT DENIES NAUSEA, VOMITING, AND SOB. PT WORE CPAP OVERNIGHT WITH 3 L O2 BLEED-IN. NO ACUTE CHANGES. WILL REPORT TO DAY NURSE.
[2019-05-15 04:41] LABS: Hematocrit 28.1 % (37.0-53.0); Hemoglobin 9.6 g/dL (13.5-17.5)
[2019-05-15 05:01] LABS: Albumin, Blood 2.7 g/dL (3.4-5.0); Anion Gap 8 mmol/L (6-16); Blood Urea Nitrogen 95 mg/dL (8-24); Bun/Creatinine Ratio 17.4 (12.0-20.0); CO2, Blood 24 mmol/L (21-32); Calcium, Blood 8.2 mg/dL (8.5-10.1); Chloride, Blood 100 mmol/L (98-108); Creatinine, Blood 5.45 mg/dL (0.60-1.20); Glomerular Filtration Rate 11 (60-); Glucose, Blood 141 mg/dL (70-99); Magnesium, Blood 1.6 mg/dL (1.6-2.4); Phosphorus, Blood 2.6 mg/dL (2.5-4.9); Potassium, Blood 4.3 mmol/L (3.5-5.5); Sodium, Blood 132 mmol/L (136-145)
[2019-05-15 12:22] LABS: BASOPHILS ABSOLUTE AUTO 0.02 K/mm3 (0.00-0.23); BASOPHILS PERCENT AUTO 0 % (0-2); EOSINOPHILS ABSOLUTE AUTO 0.03 K/mm3 (0.00-0.68); EOSINOPHILS PERCENT AUTO 0 % (0-6); Hematocrit 28.3 % (37.0-53.0); Hemoglobin 9.5 g/dL (13.5-17.5); IMMATURE GRAN ABSOLUTE AUTO 0.31 K/mm3 (0.00-0.10); IMMATURE GRAN PERCENT AUTO 3 % (0-1); LYMPHOCYTES ABSOLUTE AUTO 0.51 K/mm3 (0.84-5.20); LYMPHOCYTES PERCENT AUTO 5 % (21-46); MONOCYTES ABSOLUTE AUTO 1.07 K/mm3 (0.16-1.47); MONOCYTES PERCENT AUTO 10 % (4-13); Mean Corpuscular HGB 35.3 pg (26.0-34.0); Mean Corpuscular HGB Conc 33.6 g/dL (31.5-36.5); Mean Platelet Volume 10.8 fL (9.1-12.4); NEUTROPHILS PERCENT AUTO 82 % (41-73); NRBC ABSOLUTE 0.03 K/mm3 (0.00-0.02); NRBC Auto 0.3 /100 WBC (0.0-0.2); Platelet Count 97 K/mm3 (150-400); RDW Coefficient Variation 13.9 % (11.7-14.2); Red Blood Cell Count 2.69 M/mm3 (4.30-5.90)
[2019-05-15 12:47] LABS: Mean Corpuscular Volume 105 fL (80-100); White Blood Cell Count 10.74 K/mm3 (4.00-11.30)
--- NOTE | 2019-05-15 16:52 | NUR ---
PATIENT A/OX3 THIS SHIFT, ABLE TO COMMUNICATE AND FOLLOW COMMANDS TODAY. VSS, UP WITH FWW AND 2 ASSIST TO CHAIR. CONTINUES TO NEED ENCOURAGEMENT TO GET OOB. BLOOD CX CAME BACK POSTIVE TODAY AND PATIENT WAS STARTED ON VANCOMYCIN. VSS, ON RA AND CPAP AT [facility] WITH 3LO2 BLEED IN. CIWA 0 TODAY, NO ATIVAN OR LIBRIUM GIVEN. REPORTS THAT ABDOMINAL PAIN HAS RESOLVED, DOES SOME C/O NECK PAIN AND R LEG PAIN. FAMILY AT BEDSIDE FOR MOST OF THIS SHIFT AND ARE VERY ENCOURAGING. PT/OT ARE RECOMMENDING A SNF AT D/C.
--- NOTE | 2019-05-16 04:36 | NUR ---
SHIFT SUMMARY: PT IS ALERT AND ORIENTED WITH MINOR CONFUSION. PT IS CALM AND COOPERATIVE WITH CARE. PT DOES NOT USE HIS CALL LIGHT. PT IS A 2 PERSON ASSIST FOR TRANSFERS, NOT OUT OF BED OVERNIGHT. PT USES CPAP WITH 3 L O2 OVERNIGHT, SATS > 90%. PT REPORTED SHOULDER PAIN ON ONE OCCASION, GAVE PRN FENTANYL. PT DENIES NAUSEA, VOMITING, AND SOB. PT SLEPT INTERMITTENTLY THROUGHOUT THE NIGHT. DAUGHTER IN VISITING AT THE START OF SHIFT. NO ACUTE CHANGES OR COMPLICATIONS THIS SHIFT. WILL CONTINUE TO MONITOR.
[2019-05-16 05:50] LABS: BASOPHILS ABSOLUTE AUTO 0.03 K/mm3 (0.00-0.23); BASOPHILS PERCENT AUTO 1 % (0-2); EOSINOPHILS PERCENT AUTO 2 % (0-6); Hematocrit 26.7 % (37.0-53.0); IMMATURE GRAN ABSOLUTE AUTO 0.23 K/mm3 (0.00-0.10); IMMATURE GRAN PERCENT AUTO 4 % (0-1); LYMPHOCYTES ABSOLUTE AUTO 0.96 K/mm3 (0.84-5.20); LYMPHOCYTES PERCENT AUTO 16 % (21-46); MONOCYTES PERCENT AUTO 18 % (4-13); Mean Corpuscular HGB 34.5 pg (26.0-34.0); Mean Corpuscular HGB Conc 33.7 g/dL (31.5-36.5); NEUTROPHILS ABSOLUTE AUTO 3.76 K/mm3 (1.96-9.15); NEUTROPHILS PERCENT AUTO 61 % (41-73); Platelet Count 99 K/mm3 (150-400); RDW Coefficient Variation 13.8 % (11.7-14.2); RDW Standard Deviation 51.6 fL (35.1-46.3); Red Blood Cell Count 2.61 M/mm3 (4.30-5.90); White Blood Cell Count 6.18 K/mm3 (4.00-11.30)
[2019-05-16 05:55] LABS: Mean Corpuscular Volume 102 fL (80-100)
[2019-05-16 06:13] LABS: Alanine Aminotransfer (ALT/SGP 55 U/L (12-78); Albumin, Blood 2.6 g/dL (3.4-5.0); Albumin/Globulin Ratio 0.8 (0.8-1.8); Alk Phos 114 U/L (50-136); Anion Gap 9 mmol/L (6-16); Aspartate Aminotrans (AST/SGOT 56 U/L (12-37); Bilirubin, Direct 0.5 mg/dL (0.0-0.3); Bilirubin, Indirect 0.4 mg/dL (0.1-0.7); Bilirubin, Total 0.9 mg/dL (0.1-1.0); Blood Urea Nitrogen 99 mg/dL (8-24); Bun/Creatinine Ratio 20.3 (12.0-20.0); CO2, Blood 23 mmol/L (21-32); Calcium, Blood 8.2 mg/dL (8.5-10.1); Chloride, Blood 100 mmol/L (98-108); Creatinine, Blood 4.87 mg/dL (0.60-1.20); Globulin, Blood 3.4 g/dL (2.2-4.0); Glomerular Filtration Rate 12 (60-); Glucose, Blood 108 mg/dL (70-99); Magnesium, Blood 1.4 mg/dL (1.6-2.4); Phosphorus, Blood 3.4 mg/dL (2.5-4.9); Potassium, Blood 3.7 mmol/L (3.5-5.5); Sodium, Blood 132 mmol/L (136-145); Vancomycin, Random 15.5 ug/mL
[2019-05-16 14:07] LABS: M-SPIKE, % Not Observed % (Not Observed); PROTEIN,TOTAL,URINE 101.2 mg/dL (Not Estab.)
--- NOTE | 2019-05-16 16:22 | NUR ---
SHIFT SUMMARY: PT IS ALERT TO SELF, SITUATION AND PLACE AND ANSWERS APPROPRIATELY. PT DECLINED BREAKFAST THIS MORNING AND INSTEAD REQUESTED TO TAKE A NAP AFTER HIS MORNING PILLS. IV FLUIDS/MEDS INFUSED WITH NO ISSUES OBSERVED. EDEMA REMAINS +3-4 TO ALL EXTREMITIES AND THEY ARE ELEVATED ON PILLOWS. CPAP IS AT BEDSIDE AND REMAINS ON WHILE PT IS SLEEPING. PT WAS ASSISTED WITH A BED BATH TODAY. WAS AT BEDSIDE FOR PART OF THE DAY TODAY. MALONE IS PATENT WITH CLEAR YELLOW URINE OUTPUT. PT IS RESTING IN BED WITH CALL LIGHT IN REACH.
[2019-05-17 04:41] LABS: Hematocrit 27.4 % (37.0-53.0); Hemoglobin 9.4 g/dL (13.5-17.5)
[2019-05-17 05:04] LABS: Albumin, Blood 2.8 g/dL (3.4-5.0); Anion Gap 10 mmol/L (6-16); Blood Urea Nitrogen 95 mg/dL (8-24); Bun/Creatinine Ratio 22.1 (12.0-20.0); CO2, Blood 25 mmol/L (21-32); Calcium, Blood 8.2 mg/dL (8.5-10.1); Chloride, Blood 99 mmol/L (98-108); Creatinine, Blood 4.29 mg/dL (0.60-1.20); Glomerular Filtration Rate 14 (60-); Glucose, Blood 110 mg/dL (70-99); Magnesium, Blood 1.4 mg/dL (1.6-2.4); Potassium, Blood 3.6 mmol/L (3.5-5.5); Sodium, Blood 134 mmol/L (136-145)
[2019-05-17 05:05] LABS: Vancomycin, Random 21.5 ug/mL
--- NOTE | 2019-05-17 06:02 | NUR ---
SHIFT SUMMARY ALERT, ANSWERS QUESTIONS SLOWLY BUT APPROPRIATELY. COOPERATIVE WITH CARE. NO C/O PAIN/DISCOMFORT OVERNIGHT. REPOSITIONED. LEANNE-CARE COMPLETED. APPEARED TO REST OFF AND ON T/O SHIFT. CPAP @ HS WITH INTERMITTANCE OF NC WHILE AWAKE. VSS/AFEBRILE. MALONE PATENT AND DRAINING TO GRAVITY (STAT LOCK REPLACED). NO ACUTE CHANGES NOTED OVERNIGHT. BED REMAINS IN LOWEST POSITION. CALL LIGHT AND BELONGINGS WITHIN REACH. WCTM. REPORT TO ONCOMING RN.
--- NOTE | 2019-05-17 06:45 | NUR ---
0225 PHYSICIAN CORRESPONDENCE RECEIVED NOTIFICATION PATIENT HAD POSITIVE BLOOD CULTURES. GRAM POSITIVE COCCI IN CLUSTERS. NOTIFIED PHYSICIAN THAT PATIENT HAD POSITIVE CULTURES AND RECIEVED 2 DOSES OF VANCOMYCIN. ON-CALL LIANE STATED PATIENT IS COVERED. WILL ALERT ONCOMING RN.
--- NOTE | 2019-05-17 19:54 | NUR ---
SHIFT SUMMARY PT RESTING QUIETLY ON CPAP DURING SHIFT REPORT. PT VERY LETHARGIC AND SLEEPY FOR FIRST SEVERAL HOURS THIS AM. PT FINALLY AWAKE TO EAT BREAKFAST AFTER FAMILY IN RM. PT MORBIDLY OBESE AND MOVES VERY SLOWLY, WELL RESPONDS SLOWLY AT BEST. HX OF CHF, CKD, HTN, ETOH AND GIB. PT WITH ANASARCA UPON ADMIT, RECEIVING IV BUMEX. MALONE TO GRAVITY; PATENT WITH GOOD OUTPUT. DR BARAJAS IN TO SEE PT THIS AM, SOON AFTER PT WOKE UP. PT DECLINED TO GET UP TO EOB OR TO CHAIR FOR BREAKFAST. P/T ATTEMPTED TO WORK WITH PT AND GET PT UP TO CHAIR, BUT PT REFUSED. PT'S DAUGHTERS IN RM MOST OF DAY, DIRECTING CARE. DAUGHTERS SEEM TO PAMPER PT AND NOT HELP IN MOTIVATING HIM TO GET STRONGER. DISCUSSED LACK OF MOBILITY WITH PT'S ARCHIE, WHO AGREED THAT PT NEEDS TO BE MOVING TO GET STRONGER OR HE WON'T BE ABLE TO GO HOME. ABX AND ALBUMIN INFUSED PER EMAR. CT OF ABD COMPLETED PER ORDERS. MEDICATED FOR C/O NECK PAIN X1 THIS SHIFT. PT REPORTED NECK PAIN STARTED FROM LYING IN BED SEVERAL DAYS. CALL LT IN REACH. REPORT GIVEN TO ONCOMING RN.
--- NOTE | 2019-05-18 05:07 | NUR ---
SHIFT SUMMARY A/O, ABLE TO MAKE NEEDS KNOWN. COOPERATIVE WITH CARE. MULTIPLE REQUESTED MADE TO STAFF OVERNIGHT. DID NOT REST MUCH T/O SHIFT. ON CPAP T/O SHIFT. NO OTHER ACUTE CHANGES NOTED OVERNIGHT. VSS/AFEBRILE. BED IN LOWEST POSITION. CALL LIGHT AND BELONGINGS WITHIN REACH. WCTM. REPORT TO ONCOMING RN.
[2019-05-18 05:09] LABS: Hematocrit 27.9 % (37.0-53.0); Hemoglobin 9.5 g/dL (13.5-17.5)
[2019-05-18 05:29] LABS: Anion Gap 10 mmol/L (6-16); Blood Urea Nitrogen 93 mg/dL (8-24); Bun/Creatinine Ratio 24.8 (12.0-20.0); CO2, Blood 28 mmol/L (21-32); Calcium, Blood 8.5 mg/dL (8.5-10.1); Chloride, Blood 97 mmol/L (98-108); Creatinine, Blood 3.75 mg/dL (0.60-1.20); Glomerular Filtration Rate 17 (60-); Glucose, Blood 111 mg/dL (70-99); Magnesium, Blood 1.8 mg/dL (1.6-2.4); Potassium, Blood 3.5 mmol/L (3.5-5.5); Sodium, Blood 135 mmol/L (136-145); Vancomycin, Random 16.7 ug/mL
--- NOTE | 2019-05-18 15:30 | NUR ---
SHIFT SUMMARY PT AWAKE THIS AM DURING SHIFT REPORT. APPEARED TO FEEL BETTER, MORE ALERT AND TALKATIVE THAN YESTERDAY. PT REPORTED THAT HE DID INDEED FEEL BETTER AFTER BEDBATH THIS AM. REPORTED THAT HIS BACK WAS VERY ITCHY, PRIOR TO BED BATH. DECLINED NEEDING BENEDRYL. VSS, PT REMAINED ON RA THRU OUT THE DAY WITH BIOX >93%. MALONE TO GRAVITY; PATENT. IV BUMEX TID, PT HAVING GOOD URINE OUTPUT. MORBIDLY OBESE; VERY MINIMAL MOVEMENT ON HIS OWN. STILL DID NOT WANT TO WORK WITH P/T TODAY, BUT DAUGHTERS IN ENCOURAGED PT TO EXERCISE LEGS AT LEAST. PT C/O PAIN TO NECK, WITH MUSCLE SPASMS ON OCCASSION WHEN MOVING AROUND. DR BARAJAS IN TO SEE PT THIS AM. ULTRAM ORDERED FOR PAIN, WHICH PT REPORTED DID HELP. PT ALSO OFFERED HEAT AND ICE, WHICH WAS HELPFUL YESTERDAY. IV ABX CHANGED PER DR BARAJAS. CONSULT CALLED TO DR VERONICA'S ANS FOR TOMORROW, PER ORDERS, TO HELP FIND SOURCE OF INFECTION. NO APPEARENT WOUNDS FOUND ON SKIN. SMALL AMT OF YEAST IN GROIN AREA; NYSTATIN APPLIED AFTER CLEANING AND CATHETER CARE. PT REPOSITIONED HE WOULD ALLOW FOR MEALS AND FOR NAPS. RENA NUNESE ON PER ORDERS. CALL LT IN REACH. FAMILY AT BS.
[2019-05-19 05:01] LABS: BASOPHILS ABSOLUTE AUTO 0.04 K/mm3 (0.00-0.23); BASOPHILS PERCENT AUTO 1 % (0-2); EOSINOPHILS ABSOLUTE AUTO 0.24 K/mm3 (0.00-0.68); EOSINOPHILS PERCENT AUTO 4 % (0-6); Hematocrit 30.5 % (37.0-53.0); Hemoglobin 10.3 g/dL (13.5-17.5); IMMATURE GRAN ABSOLUTE AUTO 0.12 K/mm3 (0.00-0.10); IMMATURE GRAN PERCENT AUTO 2 % (0-1); LYMPHOCYTES PERCENT AUTO 17 % (21-46); MONOCYTES PERCENT AUTO 12 % (4-13); Mean Corpuscular HGB 34.1 pg (26.0-34.0); Mean Corpuscular HGB Conc 33.8 g/dL (31.5-36.5); Mean Corpuscular Volume 101 fL (80-100); NEUTROPHILS ABSOLUTE AUTO 4.48 K/mm3 (1.96-9.15); NEUTROPHILS PERCENT AUTO 65 % (41-73); Platelet Count 115 K/mm3 (150-400); RDW Standard Deviation 50.4 fL (35.1-46.3); Red Blood Cell Count 3.02 M/mm3 (4.30-5.90); White Blood Cell Count 6.88 K/mm3 (4.00-11.30)
[2019-05-19 05:15] LABS: Albumin, Blood 3.2 g/dL (3.4-5.0); Anion Gap 11 mmol/L (6-16); Blood Urea Nitrogen 87 mg/dL (8-24); Bun/Creatinine Ratio 26.3 (12.0-20.0); CO2, Blood 31 mmol/L (21-32); Calcium, Blood 8.5 mg/dL (8.5-10.1); Chloride, Blood 97 mmol/L (98-108); Creatinine, Blood 3.31 mg/dL (0.60-1.20); Glomerular Filtration Rate 19 (60-); Glucose, Blood 111 mg/dL (70-99); Magnesium, Blood 1.6 mg/dL (1.6-2.4); Phosphorus, Blood 4.6 mg/dL (2.5-4.9); Potassium, Blood 3.4 mmol/L (3.5-5.5); Sodium, Blood 139 mmol/L (136-145)
--- NOTE | 2019-05-19 05:38 | NUR ---
SHIFT SUMMARY A/O, ABLE TO MAKE NEEDS KNOWN. COOPERATIVE WITH CARE. CALLS AND ANSWERS QUESTIONS APPROPRIATELY. C/O PAIN/DISCOMFORT TO NECK; MEDICATED PER EMAR. CPAP ON @ HS. IV ABX INFUSIONS COMPLETED. APPEARED TO REST THROUGHOUT SHIFT. NO ACUTE CHANGES NOTED OVERNIGHT. VSS/AFEBRILE. ATTENDS CHANGE THIS AM; POWDER TO GROIN. BED REMAINED IN LOWEST POSITION. CALL LIGHT AND BELONGINGS WITHIN REACH. WCTM. REPORT TO ONCOMING RN.
--- NOTE | 2019-05-19 18:18 | NUR ---
SHIFT SUMMARY PT UP FOR MEALS WITH 1-2 PERSON ASSIST. WINCES FREQUENTLY DUE TO NECK DISCOMFORT WHEN HIS ARMS ARE MOVED OR A SPASM OCCURS. HEAT APPLIED THIS MORNING BUT PT REPORTS IT DIDN'T HELP MUCH. FAMILY DOES REPORT HE SEEMS MORE DROWSY AND LESS ORIENTED TODAY THAN HAS BEEN THE LAST COUPLE OF DAYS. APPEARS TO NOT ALWAYS COMPREHEND WHAT IS BEING SAID TO HIM WITHOUT EXTENSIVE EXPLANATION. FAMILY AT BEDSIDE MOST OF THE DAY. MRI ORDERED THIS AFTERNOON AND WAS PREMEDICATED WITH ATIVAN 1MG BUT PT DIDN'T FIT IN MRI MACHINE. WAS SHOWN BY P.T. HOW TO EASE SPASM WHEN THEY INCREASE AGAIN. ELEVATES EXTREMITIES WHEN IN BED PT ALLOWS DUE TO SWELLING. BOTH SIDES OF ABDOMEN RED/WARM/INDURATED. AWARE.
--- NOTE | 2019-05-20 04:25 | NUR ---
SHIFT SUMMARY: 78 Y/O OBESE MALE RESTED COMFORTABLY ALL SHIFT, DENIES PAIN OR NAUSEA, WORE C/PAP ALL SHIFT WITH SATS AVERAGING 91%, ABLE TO FOLLOW ALL SIMPLE VERBAL COMMANDS, +3 PITTING EDEMA NOTED THROUGHOUT ENTIRE BODY, ALERT AND ORIENTED X 2, BED ALARM APPLIED, BED LOW POSITION, CALL LIGHT AT SIDE.
[2019-05-20 06:06] LABS: Hematocrit 33.2 % (37.0-53.0); Hemoglobin 11.3 g/dL (13.5-17.5)
[2019-05-20 06:15] LABS: Albumin, Blood 3.1 g/dL (3.4-5.0); Anion Gap 12 mmol/L (6-16); Blood Urea Nitrogen 87 mg/dL (8-24); Bun/Creatinine Ratio 23.5 (12.0-20.0); CO2, Blood 28 mmol/L (21-32); Calcium, Blood 8.3 mg/dL (8.5-10.1); Chloride, Blood 97 mmol/L (98-108); Creatinine, Blood 3.71 mg/dL (0.60-1.20); Glomerular Filtration Rate 17 (60-); Glucose, Blood 120 mg/dL (70-99); Magnesium, Blood 1.7 mg/dL (1.6-2.4); Phosphorus, Blood 4.9 mg/dL (2.5-4.9); Potassium, Blood 3.3 mmol/L (3.5-5.5); Sodium, Blood 137 mmol/L (136-145)
--- NOTE | 2019-05-20 07:41 | NUR ---
PER REPORT DOCUMENTATION OF MALONE CATHETER REMOVAL AT O610 THIS MORNING.
--- NOTE | 2019-05-20 18:41 | NUR ---
SHIFT SUMMARY PT MORE ALERT AND AWARE TODAY THAN YESTERDAY. UP FOR BREAKFAST AND LUNCH. AT LUNCH WAS UP FOR AT LEAST 2 HOURS. NAPPED DURING THE AFTERNOON AND THEN WENT FOR CT SCAN. HAS BEEN INCONTINENT THROUGH THE DAY. FAMILY AT BEDSIDE DURING THE MORNING AND EARLY AFTERNOON. CONTINUOUS OXIMETRY ON AND FUNCTIONING WITH NO ALARMS NOTED. EXTREMITIES ELEVATED ON PILLOW WHEN IN BED.
--- NOTE | 2019-05-21 04:36 | NUR ---
SHIFT SUMMARY: 78 OBESE MALE RESTED COMFORTABLY ALL SHIFT, PT INCONTINENT BOWEL AND BLADDER LARGE AMOUNTS URINE, ATTENDS DIAPERS APPLIED, ALERT AND ORIENTED X 2, ABLE TO FOLLOW SIMPLE VERBAL COMMANDS, +3 PITTING EDEMA NOTED ENTIRE BODY, WORE C/PAP ENTIRE SHIFT, DENIES PAIN OR NAUSEA, NO ITCHING NOTED, BED ALARM APPLIED, BED LOW POSITION, CALL LIGHT AT SIDE.
[2019-05-21 04:55] LABS: BASOPHILS ABSOLUTE AUTO 0.03 K/mm3 (0.00-0.23); BASOPHILS PERCENT AUTO 1 % (0-2); EOSINOPHILS ABSOLUTE AUTO 0.33 K/mm3 (0.00-0.68); EOSINOPHILS PERCENT AUTO 6 % (0-6); Hematocrit 29.9 % (37.0-53.0); Hemoglobin 10.1 g/dL (13.5-17.5); IMMATURE GRAN ABSOLUTE AUTO 0.09 K/mm3 (0.00-0.10); IMMATURE GRAN PERCENT AUTO 2 % (0-1); LYMPHOCYTES ABSOLUTE AUTO 1.03 K/mm3 (0.84-5.20); LYMPHOCYTES PERCENT AUTO 17 % (21-46); MONOCYTES ABSOLUTE AUTO 0.52 K/mm3 (0.16-1.47); MONOCYTES PERCENT AUTO 9 % (4-13); Mean Corpuscular HGB 33.8 pg (26.0-34.0); Mean Corpuscular HGB Conc 33.8 g/dL (31.5-36.5); Mean Corpuscular Volume 100 fL (80-100); Mean Platelet Volume 10.1 fL (9.1-12.4); NEUTROPHILS ABSOLUTE AUTO 3.99 K/mm3 (1.96-9.15); NEUTROPHILS PERCENT AUTO 67 % (41-73); Platelet Count 137 K/mm3 (150-400); RDW Coefficient Variation 14.2 % (11.7-14.2); Red Blood Cell Count 2.99 M/mm3 (4.30-5.90); White Blood Cell Count 5.99 K/mm3 (4.00-11.30)
[2019-05-21 05:18] LABS: Albumin, Blood 2.7 g/dL (3.4-5.0); Anion Gap 11 mmol/L (6-16); Blood Urea Nitrogen 88 mg/dL (8-24); Bun/Creatinine Ratio 23.2 (12.0-20.0); CO2, Blood 28 mmol/L (21-32); Chloride, Blood 98 mmol/L (98-108); Creatinine, Blood 3.79 mg/dL (0.60-1.20); Glomerular Filtration Rate 17 (60-); Glucose, Blood 100 mg/dL (70-99); Magnesium, Blood 1.6 mg/dL (1.6-2.4); Phosphorus, Blood 4.8 mg/dL (2.5-4.9); Potassium, Blood 3.2 mmol/L (3.5-5.5); Sodium, Blood 137 mmol/L (136-145)
--- NOTE | 2019-05-21 17:17 | NUR ---
SHIFT SUMMARY PT AXO TO SELF AND FAMILY THOUGH EXTREMELY FORGETFUL AND SLOW TO RESPOND. VSS. C-DIFF NEGATIVE. PT CONTINUES TO BE INCONTINENT OF BOWEL AND BLADDER. BLADDER SCAN AT 0800 REVEALED 27ML RETAINED AND THEN AT 1030 REVEALED 57ML. NO OTHER CHANGES THIS SHIFT. IV PATENT AND SALINE LOCKED. PT WORKED WITH PHYSICAL THERAPY AND OCCUPATIONAL THERAPY, SEE NOTE. PT UP TO SHOWER THIS SHIFT. BED IN LOW POSITION, CALL LIGHT WITHIN REACH. BED ALARM ON.
--- NOTE | 2019-05-22 05:11 | NUR ---
SHIFT SUMMARY A/O, ABLE TO MAKE NEEDS KNOWN. FORGETFUL AT TIMES. COOPERATIVE WITH CARE. ANSWERS QUESTIONS APPROPRIATELY, ALTHOUGH SLOW TO RESPOND. NO C/O PAIN/DISCOMFORT. APPEARED TO REST MUCH OF SHIFT. CPAP IN PLACE @ HS. VSS/AFEBRILE. REMAINS INCONTINENT OF BOWEL/BLADDER. IV ABX INFUSED WITHOUT COMPLICATIONS TO POWERGLIDE. NO ACUTE CHANGES OVERNIGHT. BED IN LOWEST POSITION. CALL LIGHT AND BELONGINGS WITHIN REACH. WCTM. REPORT TO ONCOMING RN.
[2019-05-22 05:47] LABS: Hematocrit 30.1 % (37.0-53.0); Hemoglobin 10.2 g/dL (13.5-17.5)
[2019-05-22 06:09] LABS: Magnesium, Blood 1.7 mg/dL (1.6-2.4)
[2019-05-22 06:10] LABS: Albumin, Blood 2.6 g/dL (3.4-5.0); Anion Gap 11 mmol/L (6-16); Blood Urea Nitrogen 85 mg/dL (8-24); Bun/Creatinine Ratio 23.9 (12.0-20.0); CO2, Blood 27 mmol/L (21-32); Calcium, Blood 7.8 mg/dL (8.5-10.1); Chloride, Blood 99 mmol/L (98-108); Creatinine, Blood 3.56 mg/dL (0.60-1.20); Glomerular Filtration Rate 17 (60-); Glucose, Blood 89 mg/dL (70-99); Phosphorus, Blood 4.7 mg/dL (2.5-4.9); Potassium, Blood 3.4 mmol/L (3.5-5.5); Sodium, Blood 137 mmol/L (136-145)
--- NOTE | 2019-05-22 09:21 | NUR ---
NOTIFIED DR BARAJAS OF BLOOD CULTURE RESULTS AT THIS TIME. SHE WILL REVIEW CHART.
--- NOTE | 2019-05-22 16:44 | NUR ---
SHIFT SUMMARY PT AXO TO SELF, PLACE AND FOLLOWING DIRECTIONS THOUGH FORGETFUL AND FIXATED ON WANTING TO BE IN BED SLEEPING THROUGHOUT THE DAY. PT UP TO CHAIR FOR MEALS AND IS SLEEPING IN RECLINER AT THIS TIME THOUGH ASKS TO RETURN TO BED FREQUENTLY. PT WORKED WITH PHYSICAL THERAPY THIS SHIFT, SEE NOTE. PT CONTINUES TO BE INCONTINENT OF BOWEL AND BLADDER AND DOES NOT CALL WHEN SOILED OR WET. IV PATENT AND INFUSING PER EMAR AT THIS TIME. VSS. BED IN LOW POSITION, CALL LIGHT WITHIN REACH, ALARMS ON.
--- NOTE | 2019-05-23 04:59 | NUR ---
SHIFT SUMMARY A/O, ABLE TO MAKE NEEDS KNOWN. COOPERATIVE WITH CARE. CALLS AND ANSWERS QUESTIONS APPROPRIATELY, SLOW TO RESPOND AT TIMES. NO C/O PAIN/DISCOMFORT OVERNIGHT. IV ABX INFUSED TO PG WITHOUT COMPLICATION. CPAP @ HS /c 3L BLEED. APPEARED TO REST MUCH OF SHIFT. NO ACUTE CHANGES NOTED OVERNIGHT. VSS/AFEBRILE. BED IN LOWEST POSITION. CALL LIGHT AND BELONGINGS WITHIN REACH. WCTM. REPORT TO ONCOMING RN.
[2019-05-23 06:26] LABS: Hemoglobin 10.1 g/dL (13.5-17.5)
[2019-05-23 06:43] LABS: Albumin, Blood 2.4 g/dL (3.4-5.0); Anion Gap 9 mmol/L (6-16); Blood Urea Nitrogen 76 mg/dL (8-24); Bun/Creatinine Ratio 21.8 (12.0-20.0); CO2, Blood 27 mmol/L (21-32); Calcium, Blood 7.7 mg/dL (8.5-10.1); Chloride, Blood 101 mmol/L (98-108); Creatinine, Blood 3.49 mg/dL (0.60-1.20); Glomerular Filtration Rate 18 (60-); Glucose, Blood 86 mg/dL (70-99); Magnesium, Blood 1.6 mg/dL (1.6-2.4); Phosphorus, Blood 4.7 mg/dL (2.5-4.9); Potassium, Blood 3.5 mmol/L (3.5-5.5); Sodium, Blood 137 mmol/L (136-145)
--- NOTE | 2019-05-23 09:30 | NUR ---
PT A/O X3 COOP HOWEVER FLAT AND SOMEWHAT WITHDRAWN. ANSWERS QUESTIONS, PRESENTS CONCRETE ANSWERS. DENINES PIAN. H/R REG, LIGHT MURMER NOTED. NO TELE. LUNGS CLEAR UPPER, DIM BASES. ON R/A. RESP EASY, UNLABORED. BT X4 LAST BM YEST. VOIDS INCONT. BED IN LOW POSITION CALL LITE IN REACH, CALLS APPROP. FAMILY AT BEDSIDE.
--- NOTE | 2019-05-23 17:42 | NUR ---
PT PRESENTS WITHDRAWN, DOES NOT LIKE TO DO THINGS FOR SELF, DID AMBULATE IN [place] WITH PT THIS DAY. AT BEDSIDE MUCH OF DAY. SHE STATES HAS BEEN ETOH ABUSER. NO OTHER COMPLAINTS TODAY. BED IN LOW POSITION, CALL LITE IN REACH, CALLS APPROP
--- NOTE | 2019-05-23 18:40 | NUR ---
DR HYATT IN [place]. GAVE VERBAL ORDERS BUMEX IV 2MG NOW, BUMEX PO 2MG DAILY START TOMORROW AM
--- NOTE | 2019-05-24 05:04 | NUR ---
SHIFT SUMMARY AOX4. LS CLEAR, DENIES SOB. RA DURING THE DAY AND BIPAP @ NIGHT. DENIES NAUSEA. DENIES PAIN. 1+ EDEMA IN BLE. BUMEX IV ONE TIME GIVEN, WILL START PO TODAY. POWERGLIDE IN L UA IS SL. MELATONIN GIVEN @ 1865. VSS. UNSURE OF DC PLAN AT THIS TIME.
[2019-05-24 05:10] LABS: Hematocrit 29.6 % (37.0-53.0); Hemoglobin 9.9 g/dL (13.5-17.5)
[2019-05-24 05:34] LABS: Albumin, Blood 2.3 g/dL (3.4-5.0); Anion Gap 10 mmol/L (6-16); Blood Urea Nitrogen 71 mg/dL (8-24); Bun/Creatinine Ratio 20.2 (12.0-20.0); CO2, Blood 26 mmol/L (21-32); Calcium, Blood 7.7 mg/dL (8.5-10.1); Chloride, Blood 100 mmol/L (98-108); Creatinine, Blood 3.51 mg/dL (0.60-1.20); Glomerular Filtration Rate 18 (60-); Glucose, Blood 97 mg/dL (70-99); Magnesium, Blood 1.6 mg/dL (1.6-2.4); Phosphorus, Blood 4.7 mg/dL (2.5-4.9); Potassium, Blood 3.4 mmol/L (3.5-5.5); Sodium, Blood 136 mmol/L (136-145)
--- NOTE | 2019-05-24 08:00 | NUR ---
pt pleasant withdrawn, somewhat flat effect, denies pain, a/o. very unmotivated to do for self. h/r irreg, no tele. no murmer noted, lungs clear. resp easy unlabored on r.a. days/ bt x4 last bm yest. voids incont. in attends. 1 asst when decides to get up. needs much encouragement. wants staff to do all for him. wants us to adjust bed, hand and hold his water, pills etc. feeds him. although if not there, he can feed self. he did ambulate yest down jimenez with mod sba asst with fww. bed in low position, call lite in reach, calls approp-
--- NOTE | 2019-05-24 17:37 | NUR ---
HAD TALK WITH PT. HE WAS INCONT IN ATTENDS. STATES KNOWS WHEN NEEDS TO URINATE AND DEFACATE AND ALSO KNOWS WHEN DOES URINATE AND DEFACATE. HE DID HOWEVER SOIL ATTENDS AND NOT CALL. PENIS AND RECTUM QUITE RED. CLEANED AND PUT BARRIER CREAM . DISCUSSED PROBLEM OF SORES FROM SOILING AND LAYING IN IT. HE AGREES TO GET SERIOUS ABOUT ASKING FOR HELP. HE DID CALL FOR URINAL AFTER THIS AND WAS SUCCESSFUL. STILL LACKS MOTIVATION FOR AMBULATION AND HELPING SELF. NO OTHER CONCERNS AT THIS TIME . BED IN LOW POSITOIN, CALL LITE IN REACH, CALLS SOMETIMES APPROP. FAILS TO CALL OTHER. AT BEDSIDE.
--- NOTE | 2019-05-25 04:15 | NUR ---
SHIFT SUMMARY AOX4. LS CLEAR, DENIES SOB. NO C/O NAUSEA OR PAIN. BILAT LOWER EXT ARE RED AND SWOLLEN, 1+ ON L SIDE AND 2+ ON R SIDE. R LEG IS POSITIVE FOR A SMALL DVT. PT WEARS BIPAP AT NIGHT, RA DURING THE DAY. CONT PULSE OX. 1-2 ASSIST WITH FRONT WHEELED WALKER AND GAIT BELT WHEN UP. PT DOES NOT LIKE TO MOVE. REFUSES TO USE URINAL. DISCUSSED WITH PATIENT SKIN PROBLEMS RELATED TO WETTING HIMSELF, PT STILL REFUSES TO USE URINAL AND RIPPED CONDOM CATH OFF. VSS. MELATONIN @ 1999 AND BENADRYL OINTMENT @ 0. UNSURE OF PLAN AT THIS TIME.
[2019-05-25 04:50] LABS: BASOPHILS ABSOLUTE AUTO 0.01 K/mm3 (0.00-0.23); BASOPHILS PERCENT AUTO 0 % (0-2); EOSINOPHILS PERCENT AUTO 6 % (0-6); Hemoglobin 10.1 g/dL (13.5-17.5); IMMATURE GRAN ABSOLUTE AUTO 0.04 K/mm3 (0.00-0.10); IMMATURE GRAN PERCENT AUTO 1 % (0-1); LYMPHOCYTES ABSOLUTE AUTO 1.06 K/mm3 (0.84-5.20); LYMPHOCYTES PERCENT AUTO 21 % (21-46); MONOCYTES ABSOLUTE AUTO 0.65 K/mm3 (0.16-1.47); MONOCYTES PERCENT AUTO 13 % (4-13); Mean Corpuscular HGB 34.1 pg (26.0-34.0); Mean Corpuscular HGB Conc 33.7 g/dL (31.5-36.5); Mean Corpuscular Volume 101 fL (80-100); Mean Platelet Volume 9.9 fL (9.1-12.4); NEUTROPHILS ABSOLUTE AUTO 2.97 K/mm3 (1.96-9.15); NEUTROPHILS PERCENT AUTO 59 % (41-73); Platelet Count 131 K/mm3 (150-400); RDW Coefficient Variation 14.9 % (11.7-14.2); RDW Standard Deviation 54.7 fL (35.1-46.3); Red Blood Cell Count 2.96 M/mm3 (4.30-5.90); White Blood Cell Count 5.03 K/mm3 (4.00-11.30)
[2019-05-25 05:12] LABS: Albumin, Blood 2.2 g/dL (3.4-5.0); Anion Gap 10 mmol/L (6-16); Blood Urea Nitrogen 67 mg/dL (8-24); Bun/Creatinine Ratio 19.5 (12.0-20.0); CO2, Blood 25 mmol/L (21-32); Calcium, Blood 7.6 mg/dL (8.5-10.1); Chloride, Blood 99 mmol/L (98-108); Creatinine, Blood 3.43 mg/dL (0.60-1.20); Glomerular Filtration Rate 19 (60-); Glucose, Blood 96 mg/dL (70-99); Magnesium, Blood 1.5 mg/dL (1.6-2.4); Phosphorus, Blood 4.7 mg/dL (2.5-4.9); Potassium, Blood 3.4 mmol/L (3.5-5.5); Sodium, Blood 134 mmol/L (136-145)
--- NOTE | 2019-05-25 17:08 | NUR ---
SHIFT SUMMARY: PT IS A/O X 3-4 TODAY WITH NO C/O PAIN. HE REMAINS INC OF BOWEL AND BLADDER. PT HAS BEEN RESISTANT TO GETTING UP AND MOVING AROUND AND NEEDED MUCH ENCOURAGEMENT TO GET UP TO THE CHAIR FOR LUNCH PER DR PULIDO'S REQUEST. PT HAS EDEMA THROUGHOUT ALL EXTREMITIES AND TO RIGHT AND LEFT FLANK WITH REDNESS AND WARMTH TO BILAT FLANK WHICH DR PULIDO IS AWARE OF. POWER GLIDE TO LUE WAS INFILTRATED THIS MORNING AND REMOVED. CHARGE NURSE WAS NOTIFIED AND THE PROCEDURE NURSE WAS SUCCESSFUL IN PLACING A NEW POWERGLIDE IN HIS RUE. IV FLUIDS AND ABO HAVE INFUSED WITH NO ISSUES NOTED. BIPAP REMAINS IN PLACE WHILE PT SLEEPS. PT WAS AT BEDSIDE MOST OF THE MORNING. PT IS SLEEPING AND ABLE TO MAKE HIS NEEDS KNOWN.
--- NOTE | 2019-05-26 05:11 | NUR ---
SHIFT SUMMARY NO ASSESSMENT CHANGES. PG IN R UA IS SL. NO C/O PAIN. MELATONIN GIVEN @ 2044 AND BENADRYL OINTMENT GIVEN @ 29. PT STILL REFUSES TO USE URINAL AFTER EDUCATION ABOUT SKIN ISSUES AND ENCOURAGMENT. EDEMA CONTINUES, NO CHANGES. VSS ON RA. UNSURE OF DC PLAN AT THIS TIME.
[2019-05-26 06:12] LABS: BASOPHILS ABSOLUTE AUTO 0.01 K/mm3 (0.00-0.23); BASOPHILS PERCENT AUTO 0 % (0-2); EOSINOPHILS ABSOLUTE AUTO 0.34 K/mm3 (0.00-0.68); EOSINOPHILS PERCENT AUTO 6 % (0-6); Hematocrit 32.5 % (37.0-53.0); Hemoglobin 10.8 g/dL (13.5-17.5); IMMATURE GRAN ABSOLUTE AUTO 0.04 K/mm3 (0.00-0.10); IMMATURE GRAN PERCENT AUTO 1 % (0-1); LYMPHOCYTES ABSOLUTE AUTO 0.94 K/mm3 (0.84-5.20); LYMPHOCYTES PERCENT AUTO 17 % (21-46); MONOCYTES ABSOLUTE AUTO 0.64 K/mm3 (0.16-1.47); MONOCYTES PERCENT AUTO 12 % (4-13); Mean Corpuscular HGB 34.1 pg (26.0-34.0); Mean Corpuscular HGB Conc 33.2 g/dL (31.5-36.5); Mean Corpuscular Volume 103 fL (80-100); Mean Platelet Volume 9.9 fL (9.1-12.4); NEUTROPHILS ABSOLUTE AUTO 3.56 K/mm3 (1.96-9.15); NEUTROPHILS PERCENT AUTO 64 % (41-73); Platelet Count 139 K/mm3 (150-400); RDW Coefficient Variation 14.6 % (11.7-14.2); RDW Standard Deviation 55.1 fL (35.1-46.3); Red Blood Cell Count 3.17 M/mm3 (4.30-5.90); White Blood Cell Count 5.53 K/mm3 (4.00-11.30)
[2019-05-26 06:32] LABS: Albumin, Blood 2.3 g/dL (3.4-5.0); Anion Gap 11 mmol/L (6-16); Blood Urea Nitrogen 64 mg/dL (8-24); Bun/Creatinine Ratio 17.3 (12.0-20.0); CO2, Blood 26 mmol/L (21-32); Calcium, Blood 7.9 mg/dL (8.5-10.1); Chloride, Blood 98 mmol/L (98-108); Glomerular Filtration Rate 17 (60-); Glucose, Blood 99 mg/dL (70-99); Magnesium, Blood 1.6 mg/dL (1.6-2.4); Phosphorus, Blood 4.9 mg/dL (2.5-4.9); Potassium, Blood 3.8 mmol/L (3.5-5.5); Sodium, Blood 135 mmol/L (136-145)
--- NOTE | 2019-05-26 17:18 | NUR ---
SHIFT SUMMARY: PT IS A/O X 4 AT BASELINE BUT STILL CONTINUES TO NEED CONSTANT ENCOURAGEMENT TO GET UP OUT OF BED FOR MEALS. HE HAS NO C/O PAIN. EDEMA REMAINS TO ALL EXTREMITIES AND TO BILAT FLANKS. PT REMAINS INC OF B/B AND STATES THAT HE HAS NO DESIRE TO USE THE URINAL OR COMMODE. POWER GLIDE TO KEISHA IS PATENT AND IV FLUIDS AND ABO INFUSED WITH NO ISSUE. VISITED FOR A SHORT TIME THIS AFTERNOON. PT SLEEPS MOST OF DAY. PT CALLS FOR HELP IF NEEDED.
[2019-05-27 05:16] LABS: Hematocrit 30.8 % (37.0-53.0); Hemoglobin 10.5 g/dL (13.5-17.5); Mean Corpuscular HGB 34.9 pg (26.0-34.0); Mean Corpuscular HGB Conc 34.1 g/dL (31.5-36.5); Mean Corpuscular Volume 102 fL (80-100); Mean Platelet Volume 9.6 fL (9.1-12.4); Platelet Count 146 K/mm3 (150-400); RDW Coefficient Variation 14.6 % (11.7-14.2); RDW Standard Deviation 54.7 fL (35.1-46.3); Red Blood Cell Count 3.01 M/mm3 (4.30-5.90); White Blood Cell Count 5.11 K/mm3 (4.00-11.30)
[2019-05-27 05:37] LABS: Albumin, Blood 2.1 g/dL (3.4-5.0); Anion Gap 11 mmol/L (6-16); Blood Urea Nitrogen 65 mg/dL (8-24); Bun/Creatinine Ratio 16.3 (12.0-20.0); CO2, Blood 24 mmol/L (21-32); Calcium, Blood 7.9 mg/dL (8.5-10.1); Chloride, Blood 99 mmol/L (98-108); Creatinine, Blood 3.99 mg/dL (0.60-1.20); Glomerular Filtration Rate 16 (60-); Glucose, Blood 95 mg/dL (70-99); Phosphorus, Blood 4.8 mg/dL (2.5-4.9); Potassium, Blood 3.4 mmol/L (3.5-5.5); Sodium, Blood 134 mmol/L (136-145)
[2019-05-27 05:51] LABS: BAND PERCENT MAN 2 % (0-8); BASOPHILS PERCENT MAN 2 % (0-2); EOSINOPHILS PERCENT MAN 6 % (0-6); LYMPHOCYTES ABSOLUTE MAN 0.76 K/mm3 (0.84-5.20); LYMPHOCYTES PERCENT MAN 15 % (21-46); MONOCYTES PERCENT MAN 8 % (4-13); MYELOCYTE ABSOLUTE MAN 0.05 K/mm3 (0.00-0.00); MYELOCYTE PERCENT MAN 1 % (0-0); NEUTROPHILS ABSOLUTE MAN 3.47 K/mm3 (1.96-9.15); SEG NEUTROPHILS PERCENT MAN 66 % (41-73); TOTAL CELLS COUNTED 100
--- NOTE | 2019-05-27 07:55 | NUR ---
05/27/19 0600 VITALS STABLE. TURNED Q 2 HOURS WHEN PT WILL LET STAFF. TAKING ORAL FLUIDS WELL. INCONTINENT OF URIEN/STOOL IN BRIEFS. POORLY MOTIVATED TO BE MORE INDEPENDENT. CPAP ON ALL NIGHT.
--- NOTE | 2019-05-27 19:00 | NUR ---
SHIFT SUMMARY PATIENT IS ORIENTED X3 AND APPEARS TO BE SLEEPING MOST OF THE DAY WITH CPAP/BIPAP ON. HE IS EASILY AROUSABLE. HIS HR WAS 100-115 TODAY, DR PULIDO AWARE. RLE STILL RED/SWOLLEN, THERE IS NEW RED/SWELLING IN L ARM, DR PULIDO AWARE, ARM US ORDERED. OFTEN REFUSING TURNS, LOW MOTIVATION TO GET UP. ATTEMPTED TO GET PT UP TO CHAIR FOR LUNCH WITH PT. PT WAS ABLE TO STAND BUT RETURNED TO BED. PT HAD A FEW SCRATCHES ON R THIGH AND L FLANK THAT BLED, BANDAIDS APPLIED, DR PULIDO NOTIFIED. VSS, MIDODRINE GIVEN SCHEDULED FOR PM SYSTOLIC BP OF 105
[2019-05-28 05:09] LABS: BASOPHILS ABSOLUTE AUTO 0.01 K/mm3 (0.00-0.23); BASOPHILS PERCENT AUTO 0 % (0-2); EOSINOPHILS ABSOLUTE AUTO 0.34 K/mm3 (0.00-0.68); EOSINOPHILS PERCENT AUTO 9 % (0-6); Hematocrit 27.9 % (37.0-53.0); Hemoglobin 9.4 g/dL (13.5-17.5); IMMATURE GRAN ABSOLUTE AUTO 0.02 K/mm3 (0.00-0.10); IMMATURE GRAN PERCENT AUTO 1 % (0-1); LYMPHOCYTES ABSOLUTE AUTO 0.92 K/mm3 (0.84-5.20); LYMPHOCYTES PERCENT AUTO 24 % (21-46); MONOCYTES ABSOLUTE AUTO 0.59 K/mm3 (0.16-1.47); MONOCYTES PERCENT AUTO 15 % (4-13); Mean Corpuscular HGB 34.3 pg (26.0-34.0); Mean Corpuscular HGB Conc 33.7 g/dL (31.5-36.5); Mean Corpuscular Volume 102 fL (80-100); Mean Platelet Volume 9.9 fL (9.1-12.4); NEUTROPHILS ABSOLUTE AUTO 2.03 K/mm3 (1.96-9.15); NEUTROPHILS PERCENT AUTO 52 % (41-73); Platelet Count 157 K/mm3 (150-400); RDW Coefficient Variation 14.7 % (11.7-14.2); RDW Standard Deviation 53.9 fL (35.1-46.3); Red Blood Cell Count 2.74 M/mm3 (4.30-5.90); White Blood Cell Count 3.91 K/mm3 (4.00-11.30)
[2019-05-28 05:33] LABS: Albumin, Blood 1.8 g/dL (3.4-5.0); Anion Gap 11 mmol/L (6-16); Blood Urea Nitrogen 64 mg/dL (8-24); CO2, Blood 24 mmol/L (21-32); Calcium, Blood 7.5 mg/dL (8.5-10.1); Chloride, Blood 101 mmol/L (98-108); Creatinine, Blood 4.27 mg/dL (0.60-1.20); Glomerular Filtration Rate 14 (60-); Glucose, Blood 105 mg/dL (70-99); Magnesium, Blood 1.5 mg/dL (1.6-2.4); Phosphorus, Blood 5.2 mg/dL (2.5-4.9); Potassium, Blood 3.3 mmol/L (3.5-5.5); Sodium, Blood 136 mmol/L (136-145)
--- NOTE | 2019-05-28 05:51 | NUR ---
Shift summary. Pt slept most of shift last pm with cpap on. Pt keeps it on most of time. Tolerates it well. Pt can tolerate laying flat. Pt has large area of cellutis on both sides of abdominal thorpe. Pt getting nafcillin q 4- tolerating well. Pt incontinent of urine x 3 and once of bowel during shift. Pt helps very little when turning- very weak. VSS. Power glide will flush but cannot draw blood.
--- NOTE | 2019-05-28 08:00 | NUR ---
PT ASSISTED UP TO CHAIR FOR BREAKFAST. ABLE TO GET HIMSELF UP TO SIDE OF BED WITH MINIMAL ASSISTANCE AND WAS 1 PERSON SBA USING FWW TO GET TO CHAIR. WAS DIZZY FOR SHORT TIME AFTER SITTING UP AND RESTED PRIOR TO STANDING UP. DISCUSSED WITH HIM CALLING FOR ASSISTANCE TO USE URINAL OR COMMODE AND NOT TO JUST GO IN HIS ATTENDS AND NOT LET STAFF KNOW-DID AGREE AND ATTEMPTED TO USE URINAL BUT DIDN'T VOID. REPORTS BACK ITCHING A LOT. HAD USED DOUBLE RINSED SHEETS LAST WEEK AND PT REPORTED IT DID HELP HIS ITCHING.
--- NOTE | 2019-05-28 18:19 | NUR ---
SHIFT SUMMARY PT HAS BEEN UP FOR EVERY MEAL. SHOWER TAKEN AND TOLERATED WITH NO ADVERSE AFFECT. WHEN ASKED ABOUT SLEEPING SO MUCH PT REPORTS HE DOESN'T EVEN REALIZE HE IS FALLING ASLEEP. AT BEDSIDE ON AND OFF THROUGH DAY. DENIES ANY PAIN BUT DOES REPORT ONGOING ITCH TO SKIN. SPECKLY RASH NOTED TO BACK PRIMARILY. LOWER EXTREMITIES MORE EDEMATOUS AFTER BEING UP IN CHAIR. EDUCATED ON OXYGEN AND WHEN IT IS NEEDED DUE TO BEING FOUND ON HIM TODAY AND NOT NEEDING IT. BIPAP PLACED WHEN SLEEPING. HANDS BLUE TINGED AND COOL PART OF THE DAY BUT DID PINK UP A BIT AFTER ROOM TEMP WAS CHANGED TO BE QUITE WARM. HAS BEEN USING COMMODE AND URINAL TODAY AND BEEN MORE CONTINENT THAN WHAT HE HAS BEEN.
--- NOTE | 2019-05-28 19:28 | NUR ---
Clinical Visit: Pt admitted for renal failure. He is alert, oriented. Reports moderate appetite, not feeling hungry and states that he feels that he is "overfed" here in the hospital. Pt denies pain, anxiety. Reports that he doesn't "remember" if he is sleeping well at night, however, his is bedside and reports that he nods off and is sleeping most of the time. Prior to admission, he was not doing this at home. At one point in the conversation, pt asks sarcastically, "when is my date?" With prompting, pt reports that he has not felt down and did not have these thoughts before admission, however, they are now sarcastically present. He states that it has been incredibly difficult to be hospitalized. Pt's is concerned about his kidney function and is disappointed that his lab values are not improving today. Pt has POLST form scanned into [employer]. It is dated from 2014 - states DNR/DNI. Will accept IV fluids, antibiotics, and face mask if needed, but does not want intubation and chest compressions/CPR. He has not filled out an updated POLST and feels that his POLST still expresses his current wishes. Pt's has the POLST form at home. Spoke with nurse, concerns discussed. Sofia feels that pt is displaying some apathy. Discussed support with antidepressant. He may feel better and be more interacting with medication support. His fatigue and sleepiness is concerning. He is declining to work with therapy at times, even though Sofia states that he appears to be physically stronger than last week. Recommendation to consider introducing non-nephrotoxic antidepressant medication. Will visit with pt tomorrow. states that she is going home at night to sleep, and also going home from 1pm-4pm daily to take care of her normal household activities. She has not been taking her morning walk, but is planning on adding this walk back into her schedule in the afternoon to reduce stress. She is eating and drinking normally and does not have concerns about her current health. No other concerns.
--- NOTE | 2019-05-29 04:11 | NUR ---
Shift summary. Pt has been sleeping since getting transferred from icu. No c/o discomfort and s/s detox noted. CIWA score was zero.
[2019-05-29 04:45] LABS: BASOPHILS ABSOLUTE AUTO 0.01 K/mm3 (0.00-0.23); BASOPHILS PERCENT AUTO 0 % (0-2); EOSINOPHILS ABSOLUTE AUTO 0.37 K/mm3 (0.00-0.68); EOSINOPHILS PERCENT AUTO 8 % (0-6); Hematocrit 28.5 % (37.0-53.0); Hemoglobin 9.6 g/dL (13.5-17.5); Mean Corpuscular HGB 34.4 pg (26.0-34.0); Mean Corpuscular HGB Conc 33.7 g/dL (31.5-36.5); Mean Corpuscular Volume 102 fL (80-100); Mean Platelet Volume 10.6 fL (9.1-12.4); Platelet Count 194 K/mm3 (150-400); RDW Coefficient Variation 14.6 % (11.7-14.2); RDW Standard Deviation 54.9 fL (35.1-46.3); Red Blood Cell Count 2.79 M/mm3 (4.30-5.90); White Blood Cell Count 4.48 K/mm3 (4.00-11.30)
[2019-05-29 04:47] LABS: IMMATURE GRAN ABSOLUTE AUTO 0.02 K/mm3 (0.00-0.10); IMMATURE GRAN PERCENT AUTO 0 % (0-1); LYMPHOCYTES ABSOLUTE AUTO 0.94 K/mm3 (0.84-5.20); LYMPHOCYTES PERCENT AUTO 21 % (21-46); MONOCYTES ABSOLUTE AUTO 0.61 K/mm3 (0.16-1.47); MONOCYTES PERCENT AUTO 14 % (4-13); NEUTROPHILS ABSOLUTE AUTO 2.53 K/mm3 (1.96-9.15); NEUTROPHILS PERCENT AUTO 57 % (41-73)
[2019-05-29 05:04] LABS: Albumin, Blood 1.9 g/dL (3.4-5.0); Anion Gap 12 mmol/L (6-16); Blood Urea Nitrogen 68 mg/dL (8-24); Bun/Creatinine Ratio 15.8 (12.0-20.0); CO2, Blood 24 mmol/L (21-32); Calcium, Blood 7.5 mg/dL (8.5-10.1); Chloride, Blood 101 mmol/L (98-108); Glomerular Filtration Rate 14 (60-); Glucose, Blood 110 mg/dL (70-99); Magnesium, Blood 1.8 mg/dL (1.6-2.4); Phosphorus, Blood 4.9 mg/dL (2.5-4.9); Potassium, Blood 3.3 mmol/L (3.5-5.5); Sodium, Blood 137 mmol/L (136-145)
--- NOTE | 2019-05-29 06:22 | NUR ---
Shift summary. Pt has slept well most of the shift with his cpap on all night. Pt does not do well without it. Pt cleaned up x 2 during the night- incontinent of urine. pt getting nafcillin q 4 hours- tolerating well. Power glide- unable to draw blood from it.
--- NOTE | 2019-05-29 19:26 | NUR ---
SHIFT SUMMARY PT UP TO RECLINER FOR EVERY MEAL. USED TOILET OR URINAL SEVERAL TIMES TODAY WELL BEING INCONTINENT. HAS BEEN AGREEABLE WITH CARE. USING CPAP WHEN SLEEPING. HAS SEVERAL SPOTS ON BODY THAT STARTS TO BLEED AND DOESN'T STOP-DRESSING APPLIED AND THEN SLOWLY STOPS. AT BEDSIDE MOST OF DAY. APPEARS MORE AWARE OF WHATS GOING ON AROUND HIM TODAY THAN YESTERDAY AND INVOLVED IN CONVERSATION ABOUT HIS CARE.
--- NOTE | 2019-05-30 05:13 | NUR ---
SHIFT SUMMARY: PT A&O X4 T/O SHIFT. VSS. ABX INFUSING Q4 PER EMAR. FLUIDS TKO. 2100 ELIQUIS HELD FOR PLANNED PERMCATH PLACEMENT TODAY. PT HAS BEEN NPO SINCE MIDNIGHT. USING CPAP T/O NIGHT. OTHERWISE, O2 SATS STABLE ON RA. INCONTINENT AT TIMES, ALSO USING URINAL WITH ASSISTANCE. VOIDING SMALL AMTS FROM 50-75 ML. BENDADRYL CREAM APPLIED TO BACK FOR C/O ITCHINESS. PT GIVEN ULTRAM FOR BACK PAIN AND MELATONIN FOR SLEEP.
[2019-05-30 05:41] LABS: Hematocrit 28.6 % (37.0-53.0); Hemoglobin 9.6 g/dL (13.5-17.5)
[2019-05-30 06:09] LABS: Albumin, Blood 1.9 g/dL (3.4-5.0); Anion Gap 10 mmol/L (6-16); Blood Urea Nitrogen 64 mg/dL (8-24); CO2, Blood 25 mmol/L (21-32); Calcium, Blood 7.8 mg/dL (8.5-10.1); Chloride, Blood 102 mmol/L (98-108); Creatinine, Blood 4.26 mg/dL (0.60-1.20); Glomerular Filtration Rate 14 (60-); Glucose, Blood 101 mg/dL (70-99); Magnesium, Blood 1.8 mg/dL (1.6-2.4); Phosphorus, Blood 5.6 mg/dL (2.5-4.9); Potassium, Blood 3.2 mmol/L (3.5-5.5); Sodium, Blood 137 mmol/L (136-145)
--- NOTE | 2019-05-30 18:12 | NUR ---
PATIENT A/OX4, UP TO CHAIR FOR MEALS WITH FWW AND 1 ASSIST. PATIENT NEEDS ENCOURAGEMENT TO GET OOB. REMAINS NO CPAP AT NOC, OTHERWISE MAINTAINING SATS ON RA. VSS THIS SHIFT. PATIENT UNABLE TO HAVE PERM CATH PLACED TODAY CHARIS NGUYỄN IS OUT OF THE OFFICE UNTIL SUNDAY. K+ 3.2 THIS AM AND HAS BEEN REPLACED. NAFCILLIN Q4 HOURS. PAIN WELL MANAGED WITH TRAMADOL. FALL PRECAUTIONS IN PLACE PER UNIT PROTOCOL. INCONT OF URINE/STOOL TODAY. SUPPORTIVE AT BEDSIDE THIS EVENING. PLAN IS TO HAVE PERM CATH PLACED SUNDAY AND FOR PATIENT TO START DIALYSIS.
[2019-05-31 05:35] LABS: Hematocrit 29.7 % (37.0-53.0); Hemoglobin 9.9 g/dL (13.5-17.5)
--- NOTE | 2019-05-31 05:50 | NUR ---
INCONT OF BOWEL MID SHIFT, THEN WANTED TO GET INTO BEDSIDE CHAIR FOR SLEEP. SOON AFTERWARDS WAS [place] IN BED WITH C-PAP ON. MIDLINE BENT AND APPEARED TO INFILTRATE, REMOVED TIP INTACT. AND #22 IV PLACED IN LEFT HAND FOR ANTIBIOTICS. TOLERATED WELL. CURRENTLY RESTING QUIETLY. WILL MONITOR. CALL LIGHT IN REACH.
[2019-05-31 05:54] LABS: Albumin, Blood 1.8 g/dL (3.4-5.0); Anion Gap 11 mmol/L (6-16); Blood Urea Nitrogen 60 mg/dL (8-24); Bun/Creatinine Ratio 15.2 (12.0-20.0); CO2, Blood 24 mmol/L (21-32); Calcium, Blood 7.9 mg/dL (8.5-10.1); Chloride, Blood 103 mmol/L (98-108); Creatinine, Blood 3.94 mg/dL (0.60-1.20); Glomerular Filtration Rate 16 (60-); Glucose, Blood 105 mg/dL (70-99); Magnesium, Blood 1.6 mg/dL (1.6-2.4); Phosphorus, Blood 4.8 mg/dL (2.5-4.9); Potassium, Blood 3.4 mmol/L (3.5-5.5); Sodium, Blood 138 mmol/L (136-145)
--- NOTE | 2019-05-31 18:42 | NUR ---
PT UP TO CHAIR FOR SEVERAL HOURS TODAY AND INTO SHOWER, VERY TIRED AFTER AND REFUSED TO WORK WITH P.T. NO REPORTS OF PAIN/NAUASE/VOMITING. NO ACUTE CHANGES NOTED THIS SHIFT. WILL CONTINUE TO MONITOR AND REPORT TO ONCOMING RN.
--- NOTE | 2019-06-01 04:07 | NUR ---
IV ANTIBIOTICS CONTINUE AROUND THE CLOCK - SEE MAR FOR DETAILS. NOTED FAIRLY LIQUID STOOL WITH INCONT CHANGE. MD NOTIFIED, WILL COLLECT STOOL SAMPLE WHEN AVAILABLE TO RULE OUT C-DIFF. OF THIS WRITING, NO STOOL OF YET.
[2019-06-01 05:18] LABS: Hematocrit 28.8 % (37.0-53.0); Hemoglobin 9.7 g/dL (13.5-17.5)
[2019-06-01 05:36] LABS: Albumin, Blood 1.8 g/dL (3.4-5.0); Anion Gap 9 mmol/L (6-16); Blood Urea Nitrogen 61 mg/dL (8-24); CO2, Blood 26 mmol/L (21-32); Chloride, Blood 104 mmol/L (98-108); Creatinine, Blood 3.58 mg/dL (0.60-1.20); Glomerular Filtration Rate 17 (60-); Glucose, Blood 95 mg/dL (70-99); Magnesium, Blood 1.6 mg/dL (1.6-2.4); Phosphorus, Blood 4.3 mg/dL (2.5-4.9); Potassium, Blood 3.5 mmol/L (3.5-5.5); Sodium, Blood 139 mmol/L (136-145)
--- NOTE | 2019-06-01 19:53 | NUR ---
ENGRAVINGS POLISHER REPORTED BP LOW, ASSISTED BACK TO BED AND LEGS ELEVATED. WILL RE CHECK IN ABOUT AN HOUR. ASYMPTOMATIC
--- NOTE | 2019-06-02 03:28 | NUR ---
AWAKE AT INTERVALS THIS SHIFT. INCONT OF STOOL X 1. ALTHOUGH IT WAS LOOSE, LAB RESULTS BACK THAT IT WAS NEGATIVE FOR C-DIFF. IV ANTIBIOTICS CONTINUE AROUND THE CLOCK - SEE MAR FOR DETAILS. VSS. CONTACT PRECAUTIONS JENNIFFER CONTINUE UNTIL DC'D PER MD THIS AM. CALL LIGHT IN REACH.
[2019-06-02 05:04] LABS: Hematocrit 30.4 % (37.0-53.0); Hemoglobin 10.3 g/dL (13.5-17.5)
[2019-06-02 05:30] LABS: Magnesium, Blood 1.5 mg/dL (1.6-2.4)
[2019-06-02 05:34] LABS: Albumin, Blood 1.9 g/dL (3.4-5.0); Anion Gap 10 mmol/L (6-16); Blood Urea Nitrogen 54 mg/dL (8-24); Bun/Creatinine Ratio 16.5 (12.0-20.0); CO2, Blood 25 mmol/L (21-32); Chloride, Blood 103 mmol/L (98-108); Creatinine, Blood 3.27 mg/dL (0.60-1.20); Glomerular Filtration Rate 20 (60-); Glucose, Blood 100 mg/dL (70-99); Phosphorus, Blood 4.4 mg/dL (2.5-4.9); Potassium, Blood 3.5 mmol/L (3.5-5.5); Sodium, Blood 138 mmol/L (136-145)
--- NOTE | 2019-06-02 09:07 | NUR ---
LEFT MESSAGE ON CAITIE, STRAIGHT EDGER, TO CANCEL PERMACATH PLACEMANT KIDNEY FUNCTIONS HAVE IMPROVED.
--- NOTE | 2019-06-02 16:12 | NUR ---
ASKED DR. BRIGGS IF PATIENT NEEDS TO BE ON ELIQUIS. PER PHARMACY HE NEEDS TO BE ON 5MG BID. GOT LOADING DOSE. SHE WILL TAKE CARE OF.
--- NOTE | 2019-06-02 17:38 | NUR ---
ALERT. ORIENTED.IV TO RT LOWER BREAST PATENT W/CHARGE NURSE AWARE NEEDS PICC PLACEMANT. NEEDS CONSTANT ENCOURAGEMANT TO STAY UP OR TO EVEN GET UP IN CHAIR. INCONTINENT OF BOWEL AND BLADDER. UNLABORED RESPIRATIONS. SLEEPING MOST OF DAY W/CPAP ON. NYSTATIN POWDER USED GROIN AREA. DENIES N/V. BED IN LOW P[OSITION. CALL LIGHT WITHIN REACH. WCTM
--- NOTE | 2019-06-02 18:57 | NUR ---
UNABLE TO ORDER ELIQUIS ON COMPUTER NOT IN FORMULARY. PHYSICIANS WRITTEN ORDER SENT TO PHARMACY --ELIQUIS [address] MAHONEY.
[2019-06-03 04:49] LABS: Hematocrit 28.8 % (37.0-53.0); Hemoglobin 9.8 g/dL (13.5-17.5)
--- NOTE | 2019-06-03 05:06 | NUR ---
SUMMARY: A/O BUT FORGETFULL AT TIMES AND DOESN'T ALWAYS USE CALL LIGHT APPROPRIATELY. HE REQUIRES ENCOURAGEMENT TO ASSIST W/ADL'S AND REPOSITIONING BUT TURN SCHEDULE WAS MAINTAINED AND ATTENDS CHANGED FOR INCONTINENCE PRN. NYSTATIN APPLIED TO GROIN/LEANNE AREA AND CREAM APPLIED TO BUTTOCKS. PT VOIDED OFTEN AND HAD X1 SOFT/JELLY APPEARING BM. GENERAL ANASARCA PERSISTS W/PITTING EDEMA NOTED TO X4 EXT'S AND FLANK REGION. MEPILEXES TO ELBOWS REMAIN C/D/I. RLE W/DVT REMAINS PINK, WARM AND SWOLLEN. ELOQUIS COMMENCED TONIGHT PER EMAR. R.BREAST IV SITE INFUSING AT TKVO W/IV ABX RECIEVED. PT TOLERATES CPAP W/O2 BLEED IN AND CONT BIOX INTACT. NO ACUTE CHANGES, VSS/AFEBRILE. PT WILL NEED LINE FOR OUTPATIENT IV ABX UPON D/C. WCTM AND REPORT TO DAY RN.
[2019-06-03 05:09] LABS: Magnesium, Blood 1.5 mg/dL (1.6-2.4)
[2019-06-03 05:10] LABS: Albumin, Blood 1.7 g/dL (3.4-5.0); Anion Gap 8 mmol/L (6-16); Blood Urea Nitrogen 51 mg/dL (8-24); Bun/Creatinine Ratio 16.1 (12.0-20.0); CO2, Blood 26 mmol/L (21-32); Calcium, Blood 7.9 mg/dL (8.5-10.1); Chloride, Blood 103 mmol/L (98-108); Creatinine, Blood 3.17 mg/dL (0.60-1.20); Glomerular Filtration Rate 20 (60-); Glucose, Blood 89 mg/dL (70-99); Potassium, Blood 3.4 mmol/L (3.5-5.5); Sodium, Blood 137 mmol/L (136-145)
--- NOTE | 2019-06-03 11:50 | NUR ---
REPORT TO JUVENCIO AT [facility]
[2019-06-03] MEDS ORDERED: Bumetanide1 MG PO (12:12)
[2019-06-03] MEDS ORDERED: ELIQUIS5 MG PO (12:13)
[2019-06-03] MEDS ORDERED: MELATONIN5 M1 PO (12:14)
[2019-06-03] MEDS ORDERED: Nafcillin2 GM/100 M IV (12:15)
[2019-06-03] MEDS ORDERED: MIDO5 PO (12:15)
[2019-06-03] MEDS ORDERED: POTA10T PO (12:16)
[2019-06-03] MEDS ORDERED: Nystatin1 EAC5 TOP (12:16)
[2019-06-03] MEDS ORDERED: TRAM50 PO (12:17)
== END 2019-06-03 14:43 | DRG 871 ==
LOC: ER 11:09 → MEDS 11:10 → ERHOLD 11:10 → PCU 11:10 → MEDS 05-13 23:13 → ENPENDDIS 06-03 10:33 → MEDS 06-03 14:43
PROVIDERS: Emergency Medicine; Internal Medicine; Internal Medicine Nephrology; Pharmacist; ADMIT Internal Medicine
PROC: 02HV33Z Insertion of Infusion Device into Superior Vena Cava, Percutaneous Approach (ICD-10-PCS; principal; 2019-06-03)
DX: A41.1 Sepsis due to other specified staphylococcus (principal); I50.33 Acute on chronic diastolic (congestive) heart failure; N17.0 Acute kidney failure with tubular necrosis; I82.401 Acute embolism and thrombosis of unspecified deep veins of right lower extremity; I13.0 Hypertensive heart and chronic kidney disease with heart failure and stage 1 through stage 4 chronic kidney disease, or unspecified chronic kidney disease; N18.4 Chronic kidney disease, stage 4 (severe); N17.9 Acute kidney failure, unspecified; K86.0 Alcohol-induced chronic pancreatitis; N25.81 Secondary hyperparathyroidism of renal origin; E87.1 Hypo-osmolality and hyponatremia; I48.20 Chronic atrial fibrillation, unspecified; L03.311 Cellulitis of abdominal wall; I82.612 Acute embolism and thrombosis of superficial veins of left upper extremity; D63.1 Anemia in chronic kidney disease; D69.6 Thrombocytopenia, unspecified; F10.10 Alcohol abuse, uncomplicated; E66.01 Morbid (severe) obesity due to excess calories; G47.30 Sleep apnea, unspecified; E83.42 Hypomagnesemia; M62.838 Other muscle spasm; E87.6 Hypokalemia; Z66 Do not resuscitate
CPT/HCPCS: 36415; 36569; 71045; 71046; 71250; 72125; 74176; 80053; 80069; 80202; 81001; 81050; 82248; 82272; 82436; 82550; 82607; 82728; 82746; 82784; 83516; 83520; 83540; 83550; 83605; 83690; 83735; 83880; 83930; 83935; 84100; 84133; 84156; 84165; 84166; 84300; 84484; 84550; 85014; 85018; 85025; 85651; 86038; 86256; 86334; 86335; 87040; 87077; 87086; 87186; 87493; 93005; 93010; 93308; 93321; 93971; 94762; 96360; 96361; 97110; 97116; 97161; 97166; 97530; 97535; 99285-25; C1751; C8923; C9113; J0881; J1644; J2060; J2354; J3010; J3370; J3411; J3475; J3480; J7030; J7042; J7050; J7060; J7120; J7131; P9041

== ENCOUNTER 2019-06-09 00:53 | Inpatient (IN) | payer MEDICARE ==
[~2019-06-09] VITALS: Ht 182.9 cm; Wt 120.4 kg
[~2019-06-09 00:53] MED LIST changes: +Bumetanide1 MG PO; +Coreg12.5 MG PO; +ELIQUIS5 MG PO; +FURO40 PO; +Ferosul325 MG PO; +MELATONIN5 M1 PO; +MIDO5 PO; +Nafcillin2 GM/100 M IV; +Nystatin1 EAC5 TOP; +PANT40 PO; +POTA10T PO; +THERA M PLUS T1 EACH PO; +TRAM50 PO; +VITAMIN B COMP1 EACH PO; +VITAMIN D31000 UNI2 PO; +Zyloprim100 MG PO
[2019-06-09 01:25] LABS: BASOPHILS ABSOLUTE AUTO 0.04 K/mm3 (0.00-0.23); BASOPHILS PERCENT AUTO 0 % (0-2); EOSINOPHILS ABSOLUTE AUTO 0.22 K/mm3 (0.00-0.68); EOSINOPHILS PERCENT AUTO 2 % (0-6); Hematocrit 31.8 % (37.0-53.0); Hemoglobin 10.9 g/dL (13.5-17.5); Mean Corpuscular HGB 32.9 pg (26.0-34.0); Mean Corpuscular HGB Conc 34.3 g/dL (31.5-36.5); Mean Platelet Volume 10.3 fL (9.1-12.4); NRBC ABSOLUTE 0.02 K/mm3 (0.00-0.02); NRBC Auto 0.2 /100 WBC (0.0-0.2); Platelet Count 179 K/mm3 (150-400); RDW Coefficient Variation 14.7 % (11.7-14.2); RDW Standard Deviation 51.5 fL (35.1-46.3); Red Blood Cell Count 3.31 M/mm3 (4.30-5.90); White Blood Cell Count 10.95 K/mm3 (4.00-11.30)
[2019-06-09 01:27] LABS: IMMATURE GRAN ABSOLUTE AUTO 0.39 K/mm3 (0.00-0.10); IMMATURE GRAN PERCENT AUTO 4 % (0-1); LYMPHOCYTES PERCENT AUTO 32 % (21-46); MONOCYTES ABSOLUTE AUTO 0.87 K/mm3 (0.16-1.47); MONOCYTES PERCENT AUTO 8 % (4-13); Mean Corpuscular Volume 96 fL (80-100); NEUTROPHILS ABSOLUTE AUTO 5.93 K/mm3 (1.96-9.15); NEUTROPHILS PERCENT AUTO 54 % (41-73)
[2019-06-09 01:42] LABS: Alanine Aminotransfer (ALT/SGP 19 U/L (12-78); Albumin, Blood 1.5 g/dL (3.4-5.0); Albumin/Globulin Ratio 0.3 (0.8-1.8); Alk Phos 78 U/L (50-136); Anion Gap 10 mmol/L (6-16); Aspartate Aminotrans (AST/SGOT 49 U/L (12-37); Bilirubin, Total 2.8 mg/dL (0.1-1.0); Blood Urea Nitrogen 54 mg/dL (8-24); Bun/Creatinine Ratio 9.8 (12.0-20.0); CO2, Blood 24 mmol/L (21-32); Calcium, Blood 7.4 mg/dL (8.5-10.1); Chloride, Blood 104 mmol/L (98-108); Creatinine, Blood 5.53 mg/dL (0.60-1.20); Ethanol (Alcohol), Blood, Med <3 mg/dL; Globulin, Blood 5.2 g/dL (2.2-4.0); Glomerular Filtration Rate 11 (60-); Glucose, Blood 97 mg/dL (70-99); Sodium, Blood 138 mmol/L (136-145); Total Protein, Blood 6.7 g/dL (6.4-8.2)
[2019-06-09] MEDS ORDERED: MIDO5 PO (01:43)
[2019-06-09] MEDS ORDERED: MELATONIN5 M1 PO (01:43)
[2019-06-09] MEDS ORDERED: NAFCILLIN SODIUM IV (01:43)
[2019-06-09] MEDS ORDERED: TRAM50 PO (01:43)
[2019-06-09] MEDS ORDERED: ELIQUIS5 M2 PO (01:45)
[2019-06-09] MEDS ORDERED: ALLO100 PO (01:45)
[2019-06-09] MEDS ORDERED: Vitamin D2000 UNIT PO (01:45)
[2019-06-09] MEDS ORDERED: Bumetanide2 MG PO (01:45)
[2019-06-09] MEDS ORDERED: POTA10T PO (01:45)
[2019-06-09] MEDS ORDERED: B COMPLEX (01:46)
[2019-06-09] MEDS ORDERED: PANT40 PO (01:47)
[2019-06-09] MEDS ORDERED: THERA M PLUS T1 EACH PO (01:47)
[2019-06-09 01:59] LABS: International Normalized Ratio 2.12
--- NOTE | 2019-06-09 04:10 | NUR ---
PATIENT ARRIVED TO PCU 9 VIA GURNEY FROM ED WITH DX OF SEPSIS AND AFIB WITH RVR. PATIENTS AT BEDSIDE PROVIDING ADMIT HX. PLAN TO OBTAIN MEDICATION RECORD FROM [facility] IN AM. PATIENT TRANSFERRED TO BED USING SLIDER SHEET, AND PLACED ON PCU MONITORING. PATIENT FOLLOWING SOME DIRECTIONS, BUT NOT CONSISTENTLY. SPEECH DIFFICULT TO UNDERSTAND AND PATIENT NOT ANSWERING ORIENTATION QUESTIONS. OCCASIONALLY VERBALIZING HIS NEEDS. ATTEMPT TO PROVIDE TYLENOL PO FOR FEVER OF 101.0, PATIENT APPEARED TO HAVE SWALLOWED TABLETS THEN LATER FOUND THAT PATIENT HAD POCKED THE TYLENOL IN HIS MOUTH, ORAL CARE DONE AND WAS ABLE TO REMOVE A HALF OF A TABLET AND A SMALL AMT OF WHITE RESIDUE FROM MOUTH. DOCTOR DEVAUGHN CALLED AND TYLENOL CHANGED TO RECTAL, WILL KEEP PROTONIX PO AT THIS TIME BUT SKIP THIS DOSE. IV FLUIDS CONTINUE AT 200/HR TO HIS PICC LINE TO RIGHT UPPER ARM. ATTENDS IN PLACE BLADDER SCAN DONE SHOWING 46 CC OF URINE.
--- NOTE | 2019-06-09 08:00 | NUR ---
AM NOTE. ASSUMED CARE OF PT APROX 0700. PT WAS ADMITTED FOR AMS, SEPSIS AND AFIB RVR. PT IS A&O TO HIMSELF AND HIS . PT IS UNABLE TO FOLLOW DIRECTIONS, PT WILL BE ASKED A QUESTION AND THE PT WILL LAUGH INAPPROPRAITLY. PT IS IN AFIB RVR IN THE 140'S-150'S. PT'S BP 105/58. PT HAS 2+ EDEMA TO HIS BUE AND BLE AND ABD/FLANK AREA. L/S DIM AND EXP WHEEZES T/O PT IS ON 5-6L NC WITH O2 SAT AT 92%. PT IS FEBRILE AT 100.3. PT HAS FLUSHED/AUNG SKIN/FACE. RED RASH IS ALSO PRESENT ALONG WITH SCABS FROM THE PT PICKING AND SCRATCHING HIMSELF. PER REPORT PT IS UNABLE TO SWALLOW AND WAS POCKETING HIS FOOD FROM DINNER AND PILLS. PER THE PT'S HIS PICC LINE WAS PLACED HERE ON 06/03/19. CALL LIGHT IN REACH, BED IS LOCKED AND LOW WILL CONTINUE TO MONTIOR.
--- NOTE | 2019-06-09 13:53 | NUR ---
PT UPDATE... AT 1124 PT'S BP WAS 80/52 W/HR OF 145, PROVIDER WAS CALLED AND ORDER OBTAINED TO CONTINUE NS @200MLS. PT WAS GIVEN A BEDSIDE SWALLOW EVAL BY THIS RN, PT PASSED AND WAS GIVEN PO MIDODRINE. PT'S BP AND HR HAS BEEN CONTINUED TO BE MONITORED, PT'S CURRENT HEART RATE AND BP ARE 130 AND 74/44. PT IS AWAKE AND ALERT, STILL CONFUSED AT THIS TIME BUT ABLE TO ANSWER SIMPLE YES OR NO QUESTIONS. PT'S TEMP IS CURRENTLY 99.3. WILL CONTINUE TO MONITOR.
[2019-06-09 14:15] LABS: Hematocrit 27.3 % (37.0-53.0); Hemoglobin 9.3 g/dL (13.5-17.5); Mean Corpuscular HGB Conc 34.1 g/dL (31.5-36.5); Mean Corpuscular Volume 97 fL (80-100); Mean Platelet Volume 11.3 fL (9.1-12.4); NRBC ABSOLUTE 0.03 K/mm3 (0.00-0.02); NRBC Auto 0.3 /100 WBC (0.0-0.2); Platelet Count 148 K/mm3 (150-400); RDW Coefficient Variation 15.2 % (11.7-14.2); RDW Standard Deviation 53.4 fL (35.1-46.3); Red Blood Cell Count 2.82 M/mm3 (4.30-5.90); White Blood Cell Count 11.16 K/mm3 (4.00-11.30)
[2019-06-09 14:42] LABS: Bun/Creatinine Ratio 9.1 (12.0-20.0); Calcium, Blood 7.2 mg/dL (8.5-10.1); Creatinine, Blood 6.27 mg/dL (0.60-1.20)
[2019-06-09 14:51] LABS: BAND PERCENT MAN 7 % (0-8); BASOPHILS PERCENT MAN 0 % (0-2); EOSINOPHILS PERCENT MAN 0 % (0-6); LYMPHOCYTES ABSOLUTE MAN 0.89 K/mm3 (0.84-5.20); LYMPHOCYTES PERCENT MAN 8 % (21-46); MONOCYTES PERCENT MAN 9 % (4-13); NEUTROPHILS ABSOLUTE MAN 9.26 K/mm3 (1.96-9.15); SEG NEUTROPHILS PERCENT MAN 76 % (41-73); TOTAL CELLS COUNTED 100
--- NOTE | 2019-06-09 15:00 | NUR ---
TRANSFER TO ICU Assumed care of pt upon arrival to unit at 1430. Bedside report received from Vane MARTINEZ. Pt on 4 LPM NC. Initially does not answer questions for this RN when asked current name or location; however pt provided these answers to other people working with him. Dr Ansari at bedside on arrival. Plan of care discussed with provider. Verbal orders received. No family at bedside at this time. Atrial fibrillation with rate 120s-130s. Hypotensive. Receiving fluids at 200 mL/hr.
--- NOTE | 2019-06-09 15:10 | NUR ---
PT UPDATE... PT WAS TRANSFERED TO ICU, BEDSIDE REPORT WAS GIVEN TO RECEIVING RN. ALL OF PT'S BELONGINGS WERE PACKED AND TAKEN WITH THE PT.
[2019-06-09 15:33] LABS: Source, Urine Catheter
[2019-06-09 15:36] LABS: Blood, Urine 2+ (Neg); Glucose Qualitative, Urine Neg (Neg); Ketones, Urine 1+ (Neg); Leukocyte Esterase, Urine 3+ (Neg); Nitrite, Urine Neg (Neg); Protein, Urine 3+ (Neg); Specific Gravity, Urine 1.015 (1.003-1.022); Urobilinogen, Urine NORM (Normal)
[2019-06-09 15:47] LABS: Appearance, Urine Cloudy (Clear); Bilirubin, Urine 1+ (Neg); Color, Urine Yellow (P-Yellow)
[2019-06-09 15:48] LABS: Amorphous Light (0-Heavy); Bacteria Many /hpf; Mucus Light (0-Heavy); Squamous Epithelial Cells Many /hpf (Few); White Blood Cells, Urine TNTC /hpf (0-5)
[2019-06-09 15:59] LABS: Base Excess Venous -4.3 mmol/L; Bicarbonate Venous 20.9 mmol/L (24.0-30.0); PCO2 Venous 45.1 mmHg (38-42); PO2 Venous 119 mmHg (38-42)
--- NOTE | 2019-06-09 16:00 | NUR ---
UPDATE Plan of care discussed with Dr Chun. Provider aware that dialysis catheter will be placed tomorrow. BP discussed. Provider requests that pt's calls him. This RN placed call to pt's spouse. Unable to reach spouse. Message left on phone.
--- NOTE | 2019-06-09 17:17 | NUR ---
Pt gave verbal consent to treat on 06/09/2019 at ~1420.
--- NOTE | 2019-06-09 17:39 | NUR ---
Echocardiogram completed.
--- NOTE | 2019-06-09 17:50 | NUR ---
SPOUSE AT BEDSIDE Updated on plan of care. Spouse verbalizes understanding.
--- NOTE | 2019-06-09 20:04 | NUR ---
SUMMARY Pt on 3 LPM NC, which is home O2 use. Pt remains in atrial fibrillation with rate averaging between 110 and 120. SBP in 80s, however MAP is consistently 60 or greater. HR and echocardiogram results discussed with Dr Ansari. Orders given for amiodarone. Singer catheter in place. Pt has had only 20 mL of urine output since arrival to unit. Dr Carl at bedside 1745. States plan for dialysis catheter placement in AM. Bedside report given to oncoming RNPaula.
[2019-06-09] MEDS ORDERED: DIALYVITE WITH1 EACH PO (20:25)
--- NOTE | 2019-06-09 20:31 | NUR ---
PATIENT RESTING IN BED, ITCHING CHEST AND ARMS AT TIMES, RED RASH AND SMALL SCABS SCATTERED TO BODY. FREQUENT REMINDING TO NOT REMOVE LINES AND CORDS. PATIENTS AT BEDSIDE. PATIENT HAVING CONFUSED CONVERSATION, BUT HIS WORDS ARE EASIER TO UNDERSTAND THIS EVENING COMPARED TO THIS MORNING. PATIENT FOLLOWING DIRECTIONS BUT NOT ALWAYS CONSISTENT AND REMAINS FORGETFUL. PATIENT SET UP WITH HOME BIPAP BY RT. AMIODARONE DRIP STARTED AND RUNNING VIA PICC LINE. IV FLUIDS SL. NEW IV PLACED TO LEFT AC.
--- NOTE | 2019-06-09 21:24 | NUR ---
PATIENT MANUELA PO MEDICATION WELL HOLE IN APPLE SAUCE.
[2019-06-10 06:13] LABS: Albumin, Blood 1.5 g/dL (3.4-5.0); Anion Gap 12 mmol/L (6-16); Blood Urea Nitrogen 58 mg/dL (8-24); Bun/Creatinine Ratio 8.8 (12.0-20.0); CO2, Blood 22 mmol/L (21-32); Calcium, Blood 7.1 mg/dL (8.5-10.1); Chloride, Blood 107 mmol/L (98-108); Creatinine, Blood 6.58 mg/dL (0.60-1.20); Glomerular Filtration Rate 9 (60-); Glucose, Blood 105 mg/dL (70-99); Magnesium, Blood 1.5 mg/dL (1.6-2.4); Phosphorus, Blood 5.2 mg/dL (2.5-4.9); Potassium, Blood 3.8 mmol/L (3.5-5.5); Sodium, Blood 141 mmol/L (136-145); Vancomycin, Random 17.4 ug/mL
[2019-06-10 06:17] LABS: Hematocrit 26.2 % (37.0-53.0)
--- NOTE | 2019-06-10 07:50 | NUR ---
SUMMARY PATIENT SLEEPING OFF AND ON T/O NIGHT WITH HOME BIPAP IN PLACE WITH 3L BLEED IN. PATIENT NEEDING FREQUENT REORIENTATION AND REMINDERS TO NOT PULL ON LINES AND CORDS. DOCTOR OLENA IN TO SEE PATIENT THIS AM, SEE NEW ORDERS. PATIENT AM MEDICATION HELD DUE TO PLAN FOR PERMACATH PLACEMENT THIS AM.
--- NOTE | 2019-06-10 12:50 | NUR ---
PERMA CATH: CALLED [facility] TO SEE WHEN PT WILL BE GOING FOR HIS PROCEDURE WITH DR NGUYỄN. RECEIVED REPORT DR NGUYỄN JUST WENT IN FOR A PERIFERAL AND IT IS UNKNOWN IF THIS PT WILL BE NEXT. UPDATED PT AND FAMILY.
--- NOTE | 2019-06-10 15:50 | NUR ---
PERMA CATH: PT TO PROCEDURE AT THIS TIME. RECEIVED VERBAL BLOOD CONSENT FROM PT . PT LEFT ON AMIODARONE IV.
--- NOTE | 2019-06-10 16:47 | NUR ---
DIALYSIS: RECEIVED REPORT PT COMPLEATE WITH PROCEDURE AND WILL BE RETURNING FROM GETTING PERMA CATH IN APPROX 10 MIN. CORNER CUTTER NOTIFIED.
--- NOTE | 2019-06-10 17:07 | NUR ---
ARIVAL FROM PERMACATH: PT RETURNED FROM PROCEDURE AT THIS TIME. PERMACATH PORTS ARE WRAPPED WITH COBAN AND THE SITE HAS GAUZE IN PLACE. RECEIVED REPORT OF HIGH CONCENTRATED HEPARIN IN PERMACATH AND TO DRAW BACK 2.5ML FROM EACH PORT IF BEING USED.
--- NOTE | 2019-06-10 17:12 | NUR ---
VIKY GELLER: TALKED TO DR ERIN HOANG ABOUT PLAN OF CARE. WE WILL KEEP PT ON DRIP UNTIL PT IS ABLE TO TAKE PO MEDS.
--- NOTE | 2019-06-10 18:11 | NUR ---
DIALYSIS: PT RECEIVING DIALYSIS AT THIS TIME.
--- NOTE | 2019-06-10 18:42 | NUR ---
SHIFT SUMMARY: PT RECEIVED PERMACATH TODAY AND IS CURRENTLY RECEIVING DIALYSIS. INCISION ABOVE PERMACATH IS NOTED TO BE OOZING UPON RETURNING FROM PROCEDURE. UPON ENTERING ROOM AT THIS TIME DRESSING IS NOTED TO BE SATURATED. CHANGED DRESSING OVER THE INCISION WITH A TOM DRESSING. NO ACUTE DISTRESS NOTED T/O THE DAY. PT HAS NOT RECEIVED ANY PO MEDICATIONS D/T BEING NPO AT RECOMENDATION OF SPEECH THERAPY. PT BP HAS BEEN STABLE T/O THE DAY. O2 SATS FLUCTUATE BETWEEN 88-98% PT CURRENTLY ON 1.5L NC SATTING IN THE HIGH 80'S. WILL CONTINUE TO MONITOR AND REPORT TO ONCOMING RN. CALL LIGHT IN REACH. BED IN LOWEST POSSITION.
--- NOTE | 2019-06-10 19:42 | NUR ---
PATIENT AWAKE VISITING WITH AND DIALYSIS NURSE, CONFUSED CONVERSATION CONTINUES, BUT ABLE TO MAKE NEEDS KNOWN. DIALYSIS IN PROGRESS TO PERMA-CATH TO RIGHT SHOULDER. DRESSING CD&I. DOCTOR DELMA IN TO SEE LINE DUE TO SLIGHT OOZING WITHIN DRESSING. ADVISED TO KEEP HOB ELEVATED TONIGHT TO DECREASE GIDEON PRESSURE
[2019-06-10 21:02] LABS: Source, Urine Catheter
[2019-06-10 21:28] LABS: Appearance, Urine Clear (Clear); Bilirubin, Urine Neg (Neg); Blood, Urine 5+ (Neg); Color, Urine Yellow (P-Yellow); Glucose Qualitative, Urine Neg (Neg); Ketones, Urine 1+ (Neg); Leukocyte Esterase, Urine 2+ (Neg); Nitrite, Urine Neg (Neg); Protein, Urine 2+ (Neg); Specific Gravity, Urine 1.015 (1.003-1.022); Urobilinogen, Urine NORM (Normal)
[2019-06-10 21:41] LABS: Bacteria Mod /hpf; Red Blood Cells, Urine 0-2 /hpf (0-2); Squamous Epithelial Cells Few /hpf (Few); White Blood Cells, Urine 50-100 /hpf (0-5)
[2019-06-10 22:00] LABS: Eosinophils-Raw #,Urine 1; White Blood Cells Urine 50-100 /hpf (0-5)
--- NOTE | 2019-06-10 22:57 | NUR ---
DOBBHOFF PLACED WITH DIFFICULT PLACEMENT AT 2130, CHEST X-RAY READ BY DOCTOR DEVAUGHN KELSEY TO USE. TUBE FEEDING STARTED AT 25/HR AND PO DOSE OF AMIODARONE GIVEN. PATIENT CONTINUES TO REACH AND PULL AT NG, DESPITE FREQUENT REMINDERS TO NOT PULL AT LINES, BILAT WRIST RESTRAINTS PLACED TO PREVENT ACCIDENTAL REMOVAL OF LINES AND CORDS.
[2019-06-11 04:25] LABS: Base Excess Venous 1.5 mmol/L; Bicarbonate Venous 25.3 mmol/L (24.0-30.0); PCO2 Venous 36.8 mmHg (38-42); PO2 Venous 38.4 mmHg (38-42); pH Blood Venous 7.45 (7.34-7.37)
[2019-06-11 04:33] LABS: Hematocrit 23.8 % (37.0-53.0); Hemoglobin 8.5 g/dL (13.5-17.5); Mean Corpuscular HGB Conc 35.7 g/dL (31.5-36.5); Mean Corpuscular Volume 95 fL (80-100); NRBC ABSOLUTE 0.05 K/mm3 (0.00-0.02); NRBC Auto 0.4 /100 WBC (0.0-0.2); Platelet Count 127 K/mm3 (150-400); RDW Coefficient Variation 15.3 % (11.7-14.2); White Blood Cell Count 13.24 K/mm3 (4.00-11.30)
[2019-06-11 04:51] LABS: Alanine Aminotransfer (ALT/SGP 19 U/L (12-78); Albumin/Globulin Ratio 0.4 (0.8-1.8); Alk Phos 93 U/L (50-136); Anion Gap 11 mmol/L (6-16); Aspartate Aminotrans (AST/SGOT 50 U/L (12-37); Bilirubin, Total 1.9 mg/dL (0.1-1.0); Blood Urea Nitrogen 48 mg/dL (8-24); Bun/Creatinine Ratio 8.6 (12.0-20.0); CO2, Blood 25 mmol/L (21-32); Calcium, Blood 7.4 mg/dL (8.5-10.1); Chloride, Blood 104 mmol/L (98-108); Creatinine, Blood 5.58 mg/dL (0.60-1.20); Globulin, Blood 4.8 g/dL (2.2-4.0); Glomerular Filtration Rate 11 (60-); Glucose, Blood 117 mg/dL (70-99); Magnesium, Blood 1.8 mg/dL (1.6-2.4); Phosphorus, Blood 3.7 mg/dL (2.5-4.9); Potassium, Blood 3.5 mmol/L (3.5-5.5); Sodium, Blood 140 mmol/L (136-145); Total Protein, Blood 6.8 g/dL (6.4-8.2); Vancomycin, Random 23.9 ug/mL
[2019-06-11 05:56] LABS: BAND PERCENT MAN 7 % (0-8); BASOPHILS ABSOLUTE MAN 0.26 K/mm3 (0.00-0.23); BASOPHILS PERCENT MAN 2 % (0-2); EOSINOPHILS ABSOLUTE MAN 0.13 K/mm3 (0.00-0.68); EOSINOPHILS PERCENT MAN 1 % (0-6); LYMPHOCYTES % ATYPICAL MANUAL 1 % (0-0); LYMPHOCYTES ABSOLUTE MAN 1.32 K/mm3 (0.84-5.20); LYMPHOCYTES PERCENT MAN 9 % (21-46); METAMYELOCYTE ABSOLUTE MAN 0.13 K/mm3 (0.00-0.00); METAMYELOCYTE PERCENT MAN 1 % (0-0); MONOCYTES ABSOLUTE MAN 0.39 K/mm3 (0.16-1.47); MONOCYTES PERCENT MAN 3 % (4-13); NEUTROPHILS ABSOLUTE MAN 10.98 K/mm3 (1.96-9.15); SEG NEUTROPHILS PERCENT MAN 76 % (41-73); TOTAL CELLS COUNTED 100
--- NOTE | 2019-06-11 09:22 | NUR ---
BEDSIDE REPORT TAKEN AT 0715. PT ATTEMPTING TO CRAWL OUT OF BED BY SWINGING LEGS OVER SIDE. PT CONFUSED. APPEARS TO HAVE HALLUCINATIONS; ASKING ABOUT THE BUGS AND ANTS. PT ORIENTED TO SELF AND FAMILY ONLY. PT HAS DIFFICULT TIME FOLLOWING INSTRUCTIONS. WRIST RESTRAINTS ON. INCONTINENT OF LIQUID ORANGE STOOL. BUTTOCKS EXCORIATED, ORANGE CREAM PLACED. TF INFUSING VIA DOBBHOFF TO LEFT NARE. PERMACATH W REINFORCED DRSG; SOME BLOOD TO LATERAL ASPECT OF DRSG NEAR NECK. RESTRAINTS REMOVED. LIFT USED TO PLACE PT UP IN RECLINER. PT MUCH MORE RELAXED UP IN CHAIR; PT NOT ATTEMPTING TO CLIMB OUT, PT NOT PULLING ON LINES/CORDS. PT PRODUCING URINE. DR OLENA NICHOLE THIS AM. HD PLANNED FOR [address] UN[address] OF [address] DR BARRERA IN TO SEE PT; PT MADE MEDICAL FLOOR STATUS. DR MARK IN TO SEE PT AT 0930; SEE NEW ORDERS.
--- NOTE | 2019-06-11 19:44 | NUR ---
SHIFT SUMMARY PT AWAKE, PLEASANTLY CONFUSED T/O SHIFT. PT UP TO CHAIR X2 THIS SHIFT USING LIFT. PT CALM AND CONTENT SITTING IN CHAIR, LESS RESTLESS. PT REQUESTED BiPAP AT ONE POINT DURING SHIFT, TOLERATES HOME BiPAP WELL. TF AT GOAL OF 60ml/hr. AT BEDSIDE T/O SHIFT. PT INCONTINENT OF LIQUID ORANGE STOOL X3, BUTTOCKS EXCORIATED, ORANGE CREAM APPLIED. SKIN VERY DRY, FLAKY, PT SCRATCHING ARMS LEAVING HAYS, LOTION APPLIED APPLIED TO SKIN. REPORT GIVEN TO MEDICAL FLOOR RN.
[2019-06-12 00:06] LABS: HBSAG SCREEN Negative (Negative); HEP A AB, IGM Negative (Negative); HEP B CORE AB, IGM Negative (Negative); HEP C VIRUS AB 0.4 (0.0-0.9)
[2019-06-12 05:07] LABS: Hematocrit 26.5 % (37.0-53.0); Hemoglobin 9.2 g/dL (13.5-17.5)
[2019-06-12 05:47] LABS: Albumin, Blood 1.8 g/dL (3.4-5.0); Anion Gap 8 mmol/L (6-16); Blood Urea Nitrogen 33 mg/dL (8-24); Bun/Creatinine Ratio 7.4 (12.0-20.0); CO2, Blood 28 mmol/L (21-32); Calcium, Blood 8.2 mg/dL (8.5-10.1); Chloride, Blood 102 mmol/L (98-108); Creatinine, Blood 4.47 mg/dL (0.60-1.20); Glomerular Filtration Rate 14 (60-); Glucose, Blood 114 mg/dL (70-99); Magnesium, Blood 1.8 mg/dL (1.6-2.4); Phosphorus, Blood 2.5 mg/dL (2.5-4.9); Potassium, Blood 3.1 mmol/L (3.5-5.5); Sodium, Blood 138 mmol/L (136-145)
--- NOTE | 2019-06-12 08:35 | NUR ---
GAS TRANSFER OPERATOR SUMMARY PATIENT UP ALL NIGHT MOVING ABOUT IN THE BED. DIDN'T SEEM AWARE OF SURROUNDINGS OR SITUATION. HAD TO KEEP TURNING OFF TUBE FEED PATIENT KEPT MOVING TO END OF BED AND LAYING FLAT. NO SIGNS OR SYMPTOMS OF PAIN OR DISCOMFORT. DEPENDENT EDEMA BACK, LOWER EXTREMITIES 1-2+, PENILE EDEMA NON PITTING AROUND HEAD OF PENIS. ABDOMEN MODERATELY FIRM NON PITTING AND HYPOACTIVE. 2 INCONT EPISODES OF LOOSE STOOLS. VERY MINIMAL URINE IS CLEAR YELLOW IN MALONE. RECEIVED ORDER IN AM FOR ЮЛИЯ VEST AND/OR SOFT RESTRAINTS SO THAT PATIENT CAN RECIEVE ADEQUATE AMOUNT OF TUBE FEED. PLAN IS TO DIALISE TODAY.
--- NOTE | 2019-06-12 18:02 | NUR ---
PATIENT IS ALERT. HE IS ORIENTED TO SELF. HIS HAS BEEN AT THE BEDSIDE MOST OF THE DAY. HE SLEPT FOR THE MAJORITY OF THE DAY FOLLOWING DIALYSIS. HE WOULD WAKE UP WHEN TOUCHED OR TALKED TO BUT QUICK TO FALL BACK ASLEEP. WE PUT A RECLINER IN HIS ROOM HOPING TO GET HIM UP TODAY, BUT HE COULDNT FOLLOW DIRECTIONS ENOUGH TO MOVE HIS FEET TO THE SIDE OF THE BED. HE IS TOLERATING HIS TUBE FEEDING WELL. HE HAD 3 INCONTINENT BM'S TODAY. WILL CONTINUE TO MONITOR.
[2019-06-13 05:42] LABS: Albumin, Blood 1.8 g/dL (3.4-5.0); Anion Gap 6 mmol/L (6-16); Blood Urea Nitrogen 22 mg/dL (8-24); Bun/Creatinine Ratio 5.8 (12.0-20.0); CO2, Blood 31 mmol/L (21-32); Calcium, Blood 8.3 mg/dL (8.5-10.1); Chloride, Blood 106 mmol/L (98-108); Creatinine, Blood 3.82 mg/dL (0.60-1.20); Glomerular Filtration Rate 16 (60-); Glucose, Blood 126 mg/dL (70-99); Potassium, Blood 3.2 mmol/L (3.5-5.5); Sodium, Blood 143 mmol/L (136-145)
[2019-06-13 05:52] LABS: Hematocrit 27.9 % (37.0-53.0); Hemoglobin 9.5 g/dL (13.5-17.5)
--- NOTE | 2019-06-13 07:28 | NUR ---
OPERATIONS RESEARCH MANAGER SUMMARY SLEPT WELL UNTIL APPROX 0200 WHEN PATIENT WOKE AND BEGAN PULLING AT WIRES AND REMOVED CPAP. VERY PLEASANTLY CONFUSED, AND ALLOWED THIS RN TO REPLACE TELE AND CPAP WITHOUT DIFFICULTY. AREAS AROUND OUTSIDE OF BRIEF VERY RED. BARRIER CREAMS APPLIED FOR PROTECTION AND COMFORT AFTER INCONT LOOSE STOOL. MALONE CATH DRAINING YELLOW/JUVENCIO CLEAR URINE IN VERY MINIMAL AMOUNT OVERNIGHT. ABDOMEN REMAINS DISTENDED, LOWER EXTREMITIES 2+ EDEMA AND PENIS EDEMA APPEARS TO BE SLIGHTLY WORSE. PATIENT C/O OR DEMONSTRATED NO DISCOMFORT ALL NIGHT. TOLERATING TUBE FEEDINGS WELL WITHOUT RESIDUAL.
--- NOTE | 2019-06-13 18:12 | NUR ---
PATIENT IS ALERT AND ORIENTED TO SELF, FAMILY, SURROUNDINGS, AND FOLLOWING DRECTIONS. PATIENT SAT IN THE CHAIR POSITION IN BED FOR DINNER. HE ATE ABOUT 50% OF HIS MEAL. HE SAT IN THE RECLINER FOR LUNCH AND STAYED THERE FOR A COUPLE HOURS AFTER LUNCH. HIS IS AT THE BEDSIDE NOW. PATIENT IS MORE ALERT AND AWAKE THAN HE WAS YESTERDAY. WILL CONTINUE TO MONITOR
[2019-06-14 04:33] LABS: Hematocrit 29.6 % (37.0-53.0); Hemoglobin 9.8 g/dL (13.5-17.5)
[2019-06-14 05:11] LABS: Albumin, Blood 1.7 g/dL (3.4-5.0); Anion Gap 8 mmol/L (6-16); Blood Urea Nitrogen 27 mg/dL (8-24); Bun/Creatinine Ratio 6.1 (12.0-20.0); CO2, Blood 28 mmol/L (21-32); Calcium, Blood 8.1 mg/dL (8.5-10.1); Chloride, Blood 108 mmol/L (98-108); Creatinine, Blood 4.45 mg/dL (0.60-1.20); Glomerular Filtration Rate 14 (60-); Glucose, Blood 130 mg/dL (70-99); Phosphorus, Blood 3.8 mg/dL (2.5-4.9); Potassium, Blood 3.4 mmol/L (3.5-5.5); Sodium, Blood 144 mmol/L (136-145)
--- NOTE | 2019-06-14 07:52 | NUR ---
Shift Summary: Patient slept well between cares overnight. Repositioned Q2h. O2 sats remained in mid-90's on bipap with 3L 02. Patient remains confused and cooperative.
--- NOTE | 2019-06-14 09:27 | NUR ---
PATIENT DECLINED BREAKFAST TRAY THIS MORNING AND DID NOT WANT TO EAT. TRAY WAS OFFERED A COUPLE OF TIMES BEFORE TRAY WAS REMOVED FROM ROOM. RN WAS NOTIFIED.
--- NOTE | 2019-06-14 16:52 | NUR ---
DIALYSIS AFTER I BROUGHT THE MACHINE INTO THE ROOM, I DISCOVERED THE PT HAD ALARGE LOOSE STOOL. NOTIFIED THE NURSE. WAITED TIL IT CLEANED UP BEFORE PUTTING ON.
--- NOTE | 2019-06-14 19:13 | NUR ---
SHIFT SUMMARY: NO ACUTE CHANGES TO REPORT THIS SHIFT. PT A&O; CALM AND COOPERATIVE WITH CARE. DIALYSIS TODAY; PT TOLERATED WELL. NOC TUBE FEEDINGS; POOR ORAL INTAKE. ASPIRATION PRECAUTIONS; PO MEDS CRUSHED IN APPLE SAUCE. REPORT GIVEN TO ONCOMING RN.
[2019-06-15 04:53] LABS: Hematocrit 27.9 % (37.0-53.0); Hemoglobin 9.4 g/dL (13.5-17.5)
[2019-06-15 05:14] LABS: Albumin, Blood 1.6 g/dL (3.4-5.0); Anion Gap 7 mmol/L (6-16); Blood Urea Nitrogen 24 mg/dL (8-24); Bun/Creatinine Ratio 6.3 (12.0-20.0); CO2, Blood 31 mmol/L (21-32); Calcium, Blood 7.8 mg/dL (8.5-10.1); Chloride, Blood 105 mmol/L (98-108); Creatinine, Blood 3.82 mg/dL (0.60-1.20); Glomerular Filtration Rate 16 (60-); Glucose, Blood 117 mg/dL (70-99); Phosphorus, Blood 3.9 mg/dL (2.5-4.9); Potassium, Blood 3.6 mmol/L (3.5-5.5); Sodium, Blood 143 mmol/L (136-145)
--- NOTE | 2019-06-15 05:23 | NUR ---
Shift Summary Patient slept well overnight between cares. Tolerated tube feeding without issue. Reposistioned overnight q2h. He remains convused/ disoriented to time, place, situation.
--- NOTE | 2019-06-15 19:28 | NUR ---
SHIFT SUMMARY: NO ACUTE CHANGES TO REPORT THIS SHIFT. PT ALERT; ORIENTED TO SELF AND FAMILY. NO C/O PAIN THIS SHIFT. TELE IN PLACE; A-FIB @ 86 PER CLOTH SHEARER DURING MORNING ASSESSMENT. O2 @ 3L VIA NASAL CANNULA & BIPAP. NASOGASTRIC TUBE c NOCTURNAL FEEDINGS - PUREE DIET DURING DAY. DIALYSIS TODAY; PT TOLERATED WELL. ASPIRATION PRECAUTIONS; MEDS CRUSHED IN APPLESAUCE. MALONE IN PLACE; PATENT AND DRAINING. REPORT GIVEN TO ONCOMING RN.
[2019-06-16 05:16] LABS: Hematocrit 28.7 % (37.0-53.0); Hemoglobin 9.3 g/dL (13.5-17.5)
--- NOTE | 2019-06-16 05:29 | NUR ---
SHIFT SUMMARY PATIENT WAS VERY PLEASANT THIS SHIFT. REPOSITIONED EVERY TWO HOURS TO PREVENT SKIN BREAKDOWN. MALONE CATHETER REMAINS IN PLACE AND PATENT. PICC LINE PATENT AND INFUSING AT TO KEEP OPEN RATE. ON TELE WITH AFIB AT 76. NG TUBE PATENT, PATIENT TOLERATING TUBE FEEDING WELL. CALL LIGHT AND BED SIDE TABLE IN REACH. REPORT GIVEN TO ONCOMING RN.
[2019-06-16 05:44] LABS: Magnesium, Blood 1.8 mg/dL (1.6-2.4)
[2019-06-16 05:45] LABS: Albumin, Blood 1.6 g/dL (3.4-5.0); Anion Gap 6 mmol/L (6-16); Blood Urea Nitrogen 23 mg/dL (8-24); CO2, Blood 32 mmol/L (21-32); Calcium, Blood 8.2 mg/dL (8.5-10.1); Chloride, Blood 103 mmol/L (98-108); Creatinine, Blood 3.29 mg/dL (0.60-1.20); Glomerular Filtration Rate 20 (60-); Glucose, Blood 119 mg/dL (70-99); Potassium, Blood 3.6 mmol/L (3.5-5.5); Sodium, Blood 141 mmol/L (136-145)
--- NOTE | 2019-06-16 11:52 | NUR ---
HE HAS WORKED WITH ST AND PT THIS MORNING. DOBHOFF TUBE WAS DC'D PER MD VERBAL ORDER THIS MORNING BEFORE ST EVALUATED HIS SWALLOW AGAIN. HE SWALLOWED WELL. APPROPRIATE DIET ORDER IN PLACE. HE HAS HAD 2 INCONTINENT DIARRHEA STOOLS SO FAR THIS MORNING.
--- NOTE | 2019-06-16 16:52 | NUR ---
HE HAS HAD AN EVENTFUL SHIFT. DOBHOFF TUBE WAS REMOVED THIS MORNING. ST THEN RE-EVALUATED HIS SWALLOWING. HIS DIET WAS UPGRADED TO SOFT AND THIN LIQUIDS.SO AT LUNCH TIME HE ATE 65% AND DRANK A CUP OF MILK AND A WHOLE ENSURE. ABOUT AN HOUR OR SO AFTER LUNCH HE WAS ROLLING BACK AND FORTH IN BED FOR A BEDBATH AND LINEN CHANGE. HE VOMITED 3 TIMES IN 30 MIN. IT WAS MOSTLY THE ALONZO COLOR OF HIS ENSURE. I NOTIFIED . ZOFRAN WAS ORDERED AND GIVEN. PRIOR TO LUNCH, HE HAD 4 DIARRHEA STOOLS. NOTIFIED. C-DIFF SAMPLE SENT AND TESTED NEGATIVE. WILL GIVE IMODIUM IF DIARRHEA RETURNS. TELE IS AFIB, CONTROLLED RATE. CONTINUOUS BIOX ON. SATS MID 90'S ON 2L NC MOST OF THE DAY. HE REFUSES HIS SCD'S. MALONE PATENT.PERMACATH RCW WITH OCCLUSIVE DRESSING. NO DIALYSIS TODAY.
--- NOTE | 2019-06-16 18:05 | NUR ---
WE GAVE HIM ABOUT 40% OF THE DINNER THAT ARRIVED FROM THE KITCHEN, THINKING A SMALLER VOLUME WOULD BE MORE BENEFICIAL TO HIM. HE ATE MOST OF THAT AND QUIT. HIS IS PRESENT AT BEDSIDE AGAIN. HE HAS BEEN EDUCATED MULTIPLE TIMES ON SMALL SIPS AND SMALL BITES AND SWALLOWING COMPLETELY BETWEEN.
[2019-06-17 05:37] LABS: Hematocrit 28.8 % (37.0-53.0); Hemoglobin 9.2 g/dL (13.5-17.5)
[2019-06-17 05:46] LABS: Albumin, Blood 1.6 g/dL (3.4-5.0); Anion Gap 7 mmol/L (6-16); Blood Urea Nitrogen 35 mg/dL (8-24); Bun/Creatinine Ratio 9.3 (12.0-20.0); CO2, Blood 31 mmol/L (21-32); Calcium, Blood 7.9 mg/dL (8.5-10.1); Chloride, Blood 102 mmol/L (98-108); Creatinine, Blood 3.78 mg/dL (0.60-1.20); Glomerular Filtration Rate 17 (60-); Glucose, Blood 86 mg/dL (70-99); Magnesium, Blood 1.8 mg/dL (1.6-2.4); Phosphorus, Blood 5.1 mg/dL (2.5-4.9); Sodium, Blood 140 mmol/L (136-145)
--- NOTE | 2019-06-17 06:01 | NUR ---
SHIFT SUMMARY: PT A/OX3. PLEASANT AND COOPERATIVE. MAKING NEEDS KNOWN USING CALL LIGHT. MALONE CATH PATENT AND DRAINING CLEAR JUVENCIO COLORED URINE. 02 SATS 97-98% ON 2L BLEED IN TO CPAP, CONTINUOUS OXIMETRY. TELE ON AND SHOWING AFIB. NO LOOSE STOOLS OVERNIGHT. PERMACATH TO RIGHT UPPER CHEST WITH TEGADERM DRESSING INTACT. PICC TO RIGHT ARM PATENT. GENERALIZED PITTING EDEMA TO BUE AND BLE. EYES WIDE OPEN EACH TIME I ENTERED ROOM. PT, HOWEVER STATES HE HAS SLEPT WELL. DENIES PAIN AT THIS TIME. CALL LIGHT IN REACH.
[2019-06-17] MEDS ORDERED: ACET325 PO (14:25)
[2019-06-17] MEDS ORDERED: Amiodarone HCl200 MG PO (14:25)
[2019-06-17] MEDS ORDERED: Anti-Diarrheal2 MG PO (14:26)
[2019-06-17] MEDS ORDERED: Metamucil Smooth1 EA PO (14:27)
[2019-06-17] MEDS ORDERED: Prosource30 ML PO (14:27)
[2019-06-17] MEDS ORDERED: SERT25 PO (14:27)
--- NOTE | 2019-06-17 14:36 | NUR ---
HE HAD DIALYSIS THIS MORNING IN THEIR DEPT. NO PROBLEMS. HE NAPPED WHEN HE GOT BACK WITH HIS BIPAP ON. HE THOUGHT HE HAD TO HAVE A BM. UP TO THE [facility] WITH ASSIST. NO BM. NO VOID YET AFTER K[facility]A [facility].
--- NOTE | 2019-06-17 15:05 | NUR ---
brief supportive visit in dialysis
--- NOTE | 2019-06-17 16:39 | NUR ---
DISCHARGED TO [facility] BY WPraveena BOJORQUEZ AT 1640. HIS PICC LINE IS IN PLACE TRAVIS IS HIS RCW PERMACATH. REPORT CALLED TO ALBA RN. HE WAS ABLE TO HELP WITH DRESSING. HE IS ALERT AND MORE MOBILE EACH DAY.
--- NOTE | 2019-06-17 17:16 | NUR ---
I SPOKE WITH AND ASHLEY MARTINEZ AT [facility]. OXACILLIN HAS BEEN DC'D. RECEIVED A DC PICC LINE ORDER SO TOLD ASHLEY MARTINEZ AND FAXED HER THE ORDER. THE AMIODARONE ORDER HAS ALSO BEEN CLARIFIED. A COPY OF THE SWALLOW PLAN ALSO SENT OVER AND DISCUSSED ON THE PHONE.
== END 2019-06-17 16:50 | DRG 673 ==
LOC: ER 00:53 → ICUE 04:13 → PCU 04:13 → ICUE 14:30 → MEDS 06-11 19:56 → ENPENDDIS 06-17 12:29 → MEDS 06-17 16:50
PROVIDERS: Emergency Medicine; Internal Medicine; Internal Medicine Nephrology; Internal Medicine Pulmonary Disease; ADMIT Hospitalist
PROC: 5A09357 Assistance with Respiratory Ventilation, Less than 24 Consecutive Hours, Continuous Positive Airway Pressure (ICD-10-PCS; principal; 2019-06-09)
PROC: 0JH63XZ Insertion of Tunneled Vascular Access Device into Chest Subcutaneous Tissue and Fascia, Percutaneous Approach (ICD-10-PCS; 2019-06-10)
PROC: 05HM33Z Insertion of Infusion Device into Right Internal Jugular Vein, Percutaneous Approach (ICD-10-PCS; 2019-06-10)
PROC: B5131ZA Fluoroscopy of Right Jugular Veins using Low Osmolar Contrast, Guidance (ICD-10-PCS; 2019-06-10)
PROC: 5A1D70Z Performance of Urinary Filtration, Intermittent, Less than 6 Hours Per Day (ICD-10-PCS; 2019-06-10)
DX: N17.9 Acute kidney failure, unspecified (principal); G92 Toxic encephalopathy; I50.32 Chronic diastolic (congestive) heart failure; I24.8 Other forms of acute ischemic heart disease; Z68.42 Body mass index [BMI] 45.0-49.9, adult; I13.0 Hypertensive heart and chronic kidney disease with heart failure and stage 1 through stage 4 chronic kidney disease, or unspecified chronic kidney disease; I48.20 Chronic atrial fibrillation, unspecified; Z98.52 Vasectomy status; N18.6 End stage renal disease; N25.81 Secondary hyperparathyroidism of renal origin; E66.01 Morbid (severe) obesity due to excess calories; F10.10 Alcohol abuse, uncomplicated; R33.8 Other retention of urine; M10.9 Gout, unspecified; G47.33 Obstructive sleep apnea (adult) (pediatric); E83.42 Hypomagnesemia; F17.220 Nicotine dependence, chewing tobacco, uncomplicated; E87.6 Hypokalemia; Z99.2 Dependence on renal dialysis
CPT/HCPCS: 36415; 36430; 36558; 36561; 51702; 71045; 76937; 80048; 80053; 80069; 80074; 80202; 81001; 82803; 82947; 83605; 83735; 84100; 84132; 84484; 85014; 85018; 85025; 85610; 85730; 86317; 86850; 86900; 86901; 86923; 87040; 87086; 87205; 87493; 92526; 92610; 93005; 93010; 93308; 94760; 94762; 96361; 96365; 96367; 97110; 97162; 97165; 97530; 99152; 99153; 99285-25; A9270; C1750; C1769; C9113; G0480; J0282; J0692; J0713; J0881; J1160; J1644; J2250; J2405; J2700; J3010; J3370; J3475; J3480; J7030; J7040; J7050; J7060; J7120; P9016; P9046

== ENCOUNTER 2019-08-19 12:21 | Emergency (ER) | payer MEDICARE ==
[~2019-08-19] VITALS: Ht 180.3 cm; Wt 90.7 kg
[~2019-08-19 12:21] MED LIST changes: +ACET325 PO; +ALLO100 PO; +Amiodarone HCl200 MG PO; +Anti-Diarrheal2 MG PO; +B COMPLEX; +Bumetanide2 MG PO; +DIALYVITE WITH1 EACH PO; +ELIQUIS5 M2 PO; +Metamucil Smooth1 EA PO; +NAFCILLIN SODIUM IV; +Prosource30 ML PO; +SERT25 PO; +Vitamin D2000 UNIT PO
[2019-08-19 13:03] LABS: BASOPHILS ABSOLUTE AUTO 0.02 K/mm3 (0.00-0.23); BASOPHILS PERCENT AUTO 0 % (0-2); EOSINOPHILS ABSOLUTE AUTO 0.07 K/mm3 (0.00-0.68); EOSINOPHILS PERCENT AUTO 1 % (0-6); Hematocrit 32.1 % (37.0-53.0); Hemoglobin 10.1 g/dL (13.5-17.5); IMMATURE GRAN ABSOLUTE AUTO 0.27 K/mm3 (0.00-0.10); IMMATURE GRAN PERCENT AUTO 3 % (0-1); LYMPHOCYTES ABSOLUTE AUTO 1.14 K/mm3 (0.84-5.20); LYMPHOCYTES PERCENT AUTO 11 % (21-46); MONOCYTES ABSOLUTE AUTO 0.82 K/mm3 (0.16-1.47); MONOCYTES PERCENT AUTO 8 % (4-13); Mean Corpuscular HGB 30.5 pg (26.0-34.0); Mean Corpuscular HGB Conc 31.5 g/dL (31.5-36.5); Mean Corpuscular Volume 97 fL (80-100); Mean Platelet Volume 9.2 fL (9.1-12.4); NEUTROPHILS ABSOLUTE AUTO 8.54 K/mm3 (1.96-9.15); NEUTROPHILS PERCENT AUTO 79 % (41-73); Platelet Count 348 K/mm3 (150-400); RDW Coefficient Variation 15.9 % (11.7-14.2); RDW Standard Deviation 57.5 fL (35.1-46.3); Red Blood Cell Count 3.31 M/mm3 (4.30-5.90); White Blood Cell Count 10.86 K/mm3 (4.00-11.30)
[2019-08-19 13:25] LABS: Albumin, Blood 2.1 g/dL (3.4-5.0); Albumin/Globulin Ratio 0.4 (0.8-1.8); Bilirubin, Total 0.8 mg/dL (0.1-1.0); Bun/Creatinine Ratio 28.7 (12.0-20.0); Calcium, Blood 8.9 mg/dL (8.5-10.1); Creatinine, Blood 1.64 mg/dL (0.60-1.20); Globulin, Blood 5.1 g/dL (2.2-4.0); Potassium, Blood 4.1 mmol/L (3.5-5.5); Total Protein, Blood 7.2 g/dL (6.4-8.2)
[2019-08-19] MEDS ORDERED: Vibramycin100 MG PO (14:36)
== END 2019-08-19 16:00 | disposition home or self-care (01) ==
LOC: ER 12:21
PROVIDERS: Emergency Medicine
DX: L03.115 Cellulitis of right lower limb (principal); R60.0 Localized edema; I48.91 Unspecified atrial fibrillation; I50.9 Heart failure, unspecified; N18.9 Chronic kidney disease, unspecified; Z86.718 Personal history of other venous thrombosis and embolism; Z88.2 Allergy status to sulfonamides; Z79.899 Other long term (current) drug therapy
CPT/HCPCS: 36415; 80053; 85025; 96365; 99283-25; J0696

== ENCOUNTER → 2019-09-01 | Outpatient (CLI) | payer MEDICARE ==
[~2019-09-01] MED LIST changes: +Bumetanide0.5 MG PO; +IRON18 MG PO; +Klor-Con 1010 MEQ PO; +LEVSOD75 PO; +Vibramycin100 MG PO; +ZINC15 PO
[2019-09-01 16:20] LABS: Albumin, Blood 2.3 g/dL (3.4-5.0); Anion Gap 6 mmol/L (6-16); Blood Urea Nitrogen 23 mg/dL (8-24); Bun/Creatinine Ratio 15.5 (12.0-20.0); CO2, Blood 26 mmol/L (21-32); Calcium, Blood 8.6 mg/dL (8.5-10.1); Chloride, Blood 102 mmol/L (98-108); Creatinine, Blood 1.48 mg/dL (0.60-1.20); Glomerular Filtration Rate 49 (60-); Glucose, Blood 86 mg/dL (70-99); Phosphorus, Blood 2.9 mg/dL (2.5-4.9); Potassium, Blood 4.1 mmol/L (3.5-5.5); Sodium, Blood 134 mmol/L (136-145)
== END | disposition home or self-care (01) ==
LOC: LAB SHORT 14:48 → LAB 14:48
PROVIDERS: Internal Medicine Nephrology
DX: N18.3 Chronic kidney disease, stage 3 (moderate) (principal); D63.1 Anemia in chronic kidney disease
CPT/HCPCS: 80069

== ENCOUNTER 2019-09-22 00:13 | Day surgery (SDC) | payer MEDICARE ==
[~2019-09-22 00:13] MED LIST changes: -Bumetanide0.5 MG PO; -IRON18 MG PO; -Klor-Con 1010 MEQ PO; -LEVSOD75 PO; -ZINC15 PO
[2019-09-22] MEDS ORDERED: ALLO100 PO (20:54)
[2019-09-22] MEDS ORDERED: ZINC15 PO (20:54)
[2019-09-22] MEDS ORDERED: LEVSOD75 PO (20:55)
[2019-09-22] MEDS ORDERED: IRON18 MG PO (20:55)
[2019-09-22] MEDS ORDERED: ELIQUIS5 MG PO (20:58)
[2019-09-22] MEDS ORDERED: Bumetanide0.5 MG PO (21:13)
[2019-09-22] MEDS ORDERED: Klor-Con 1010 MEQ PO (21:14)
== END 2019-09-22 23:11 | disposition home or self-care (01) ==
LOC: WOUND 00:13
DX: L97.812 Non-pressure chronic ulcer of other part of right lower leg with fat layer exposed (principal); R22.41 Localized swelling, mass and lump, right lower limb; I11.0 Hypertensive heart disease with heart failure; I50.32 Chronic diastolic (congestive) heart failure; G47.33 Obstructive sleep apnea (adult) (pediatric); F17.200 Nicotine dependence, unspecified, uncomplicated; Z88.2 Allergy status to sulfonamides; Z79.899 Other long term (current) drug therapy
CPT/HCPCS: G0463

== ENCOUNTER 2019-09-22 17:25 | Inpatient (IN) | payer MEDICARE ==
[~2019-09-22] VITALS: Ht 180.3 cm; Wt 95.1 kg
[2019-09-22 19:08] LABS: BASOPHILS ABSOLUTE AUTO 0.02 K/mm3 (0.00-0.23); BASOPHILS PERCENT AUTO 0 % (0-2); EOSINOPHILS ABSOLUTE AUTO 0.01 K/mm3 (0.00-0.68); EOSINOPHILS PERCENT AUTO 0 % (0-6); Hematocrit 28.7 % (37.0-53.0); IMMATURE GRAN PERCENT AUTO 1 % (0-1); LYMPHOCYTES ABSOLUTE AUTO 0.79 K/mm3 (0.84-5.20); LYMPHOCYTES PERCENT AUTO 5 % (21-46); MONOCYTES ABSOLUTE AUTO 1.49 K/mm3 (0.16-1.47); MONOCYTES PERCENT AUTO 9 % (4-13); Mean Corpuscular HGB 28.4 pg (26.0-34.0); Mean Corpuscular HGB Conc 31.4 g/dL (31.5-36.5); Mean Corpuscular Volume 91 fL (80-100); Mean Platelet Volume 9.2 fL (9.1-12.4); NEUTROPHILS ABSOLUTE AUTO 14.15 K/mm3 (1.96-9.15); NEUTROPHILS PERCENT AUTO 85 % (41-73); Platelet Count 324 K/mm3 (150-400); RDW Coefficient Variation 15.8 % (11.7-14.2); RDW Standard Deviation 52.4 fL (35.1-46.3); Red Blood Cell Count 3.17 M/mm3 (4.30-5.90); White Blood Cell Count 16.56 K/mm3 (4.00-11.30)
[2019-09-22 19:24] LABS: International Normalized Ratio 1.31; Prothrombin Time Results 13.8 Sec (9.7-11.5)
[2019-09-22 19:39] LABS: Albumin, Blood 2.5 g/dL (3.4-5.0); Albumin/Globulin Ratio 0.5 (0.8-1.8); Bun/Creatinine Ratio 17.5 (12.0-20.0); Calcium, Blood 8.4 mg/dL (8.5-10.1); Creatinine, Blood 1.66 mg/dL (0.60-1.20); Globulin, Blood 4.9 g/dL (2.2-4.0); Potassium, Blood 4.1 mmol/L (3.5-5.5); Total Protein, Blood 7.4 g/dL (6.4-8.2)
[2019-09-22 19:42] LABS: Thyroid Stimulating Hormone 35.4 uIU/mL (0.360-4.800)
[2019-09-22] MEDS ORDERED: ALLO100 PO (20:54)
[2019-09-22] MEDS ORDERED: ZINC15 PO (20:54)
[2019-09-22] MEDS ORDERED: LEVSOD75 PO (20:55)
[2019-09-22] MEDS ORDERED: IRON18 MG PO (20:55)
[2019-09-22] MEDS ORDERED: ELIQUIS5 MG PO (20:58)
[2019-09-22] MEDS ORDERED: Bumetanide0.5 MG PO (21:13)
[2019-09-22] MEDS ORDERED: Klor-Con 1010 MEQ PO (21:14)
[2019-09-23 06:18] LABS: Hemoglobin 8.1 g/dL (13.5-17.5); Mean Corpuscular HGB 28.5 pg (26.0-34.0); Mean Corpuscular HGB Conc 31.2 g/dL (31.5-36.5); Mean Corpuscular Volume 92 fL (80-100); Mean Platelet Volume 9.4 fL (9.1-12.4); Platelet Count 275 K/mm3 (150-400); RDW Coefficient Variation 15.9 % (11.7-14.2); RDW Standard Deviation 53.4 fL (35.1-46.3); Red Blood Cell Count 2.84 M/mm3 (4.30-5.90); White Blood Cell Count 12.51 K/mm3 (4.00-11.30)
[2019-09-23 06:32] LABS: Bun/Creatinine Ratio 17.8 (12.0-20.0); Calcium, Blood 7.8 mg/dL (8.5-10.1); Creatinine, Blood 1.52 mg/dL (0.60-1.20); Potassium, Blood 3.8 mmol/L (3.5-5.5)
--- NOTE | 2019-09-23 06:42 | NUR ---
SHIFT SUMMARY AOX4. TANACROSS. VSS. TELE RUNNING AFIB HR 94. RLE IS VERY HOT TO TOUCH, RED, +3 EDEMA, SMALL DIME SIZE OPEN AREA, BANDAGE PLACED, PICTURES TAKEN 09/22/19. CALLED IN CONSULT TO ORTHO THIS AM. INCONTINENT OF URINE THIS AM, ATTENDS CHANGED. CALL LIGHT IN REACH. WCTM.
--- NOTE | 2019-09-23 08:34 | NUR ---
PODIATRY CONSULT CALLED TO DR MELTON.
--- NOTE | 2019-09-23 12:05 | NUR ---
Student nurse recieve permission from patient at bedside to partipate in care 09/23/2019@1209.Patient is alert and orienated x3 Patients at bedside, gave a brief history with patients permission states [employer] [place]. Affect is blunted with brief smiles and good eye contact.
--- NOTE | 2019-09-23 15:01 | NUR ---
DR MELTON OFFICE NOTIFIED OF CANCELLED CONSULT. PER DR BAEZA OK TO FEED PT AND MAKE NPO AFTER MIDNIGHT AND TO HOLD ELIQUIS TONIGHT AND TOMORROW AM UNTIL SEEN BY DR TALLEY TOMORROW.
--- NOTE | 2019-09-23 17:25 | NUR ---
PT TO IMAGING FOR CT AND XRAY RIGHT FOOT
--- NOTE | 2019-09-23 18:12 | NUR ---
SHIFT SUMMARY PT. AFIB AT 80S. TELEMETRY IN PLACE. FAMILY AT BEDSIDE LARGEST PORTION OF SHIFT. PT HAD CT OF LEG TODAY. ORTHO CONSULT. ELIQUIS ON HOLD AT THIS TIME. PATIENT ON BEDREST AT THIS TIME. PATIENT ABLE TO MAKE MEANINGFUL TURNS TO AVOID SKIN BREAKDOWN. PATIENT SKIN CDI. ULTRASOUND OF LEG TO BE COMPLETED. IV ABX INFUSED DURING SHIFT. LN TO C0NT TO MONITOR.
[2019-09-24 05:47] LABS: BASOPHILS ABSOLUTE AUTO 0.02 K/mm3 (0.00-0.23); BASOPHILS PERCENT AUTO 0 % (0-2); EOSINOPHILS ABSOLUTE AUTO 0.06 K/mm3 (0.00-0.68); EOSINOPHILS PERCENT AUTO 1 % (0-6); Hemoglobin 8.1 g/dL (13.5-17.5); IMMATURE GRAN ABSOLUTE AUTO 0.07 K/mm3 (0.00-0.10); IMMATURE GRAN PERCENT AUTO 1 % (0-1); LYMPHOCYTES ABSOLUTE AUTO 0.78 K/mm3 (0.84-5.20); LYMPHOCYTES PERCENT AUTO 7 % (21-46); MONOCYTES ABSOLUTE AUTO 0.98 K/mm3 (0.16-1.47); MONOCYTES PERCENT AUTO 8 % (4-13); Mean Corpuscular HGB 28.4 pg (26.0-34.0); Mean Corpuscular HGB Conc 31.2 g/dL (31.5-36.5); Mean Corpuscular Volume 91 fL (80-100); Mean Platelet Volume 9.1 fL (9.1-12.4); NEUTROPHILS ABSOLUTE AUTO 10.11 K/mm3 (1.96-9.15); NEUTROPHILS PERCENT AUTO 84 % (41-73); Platelet Count 305 K/mm3 (150-400); RDW Standard Deviation 54.4 fL (35.1-46.3); Red Blood Cell Count 2.85 M/mm3 (4.30-5.90); White Blood Cell Count 12.02 K/mm3 (4.00-11.30)
[2019-09-24 06:07] LABS: Anion Gap 7 mmol/L (6-16); Blood Urea Nitrogen 30 mg/dL (8-24); Bun/Creatinine Ratio 19.9 (12.0-20.0); CO2, Blood 26 mmol/L (21-32); Calcium, Blood 8.3 mg/dL (8.5-10.1); Chloride, Blood 99 mmol/L (98-108); Creatinine, Blood 1.51 mg/dL (0.60-1.20); Glomerular Filtration Rate 48 (60-); Glucose, Blood 116 mg/dL (70-99); Phosphorus, Blood 3.6 mg/dL (2.5-4.9); Potassium, Blood 4.2 mmol/L (3.5-5.5); Sodium, Blood 132 mmol/L (136-145)
--- NOTE | 2019-09-24 06:41 | NUR ---
SHIFT SUMMARY PT IS A 79 Y/O MALE, ADMITTED FOR RLE CELLULITIS AND OSTEOMYELITIS. HE IS A&O X 3, THOUGH WICHITA AND FORGETFUL AT TIMES. PT IS CURRENTLY BEDREST. HE HAS BEEN NPO SINCE MIDNIGHT IN PREP FOR A SURGICAL I&D TODAY. PT DID REPORT PAIN IN HIS R LEG WHEN IT WAS "ELEVATED FOR TOO LONG", BUT DENIED THE NEED FOR PAIN MEDS. NO COMPLAINTS OF NAUSEA OR SOB. VITAL SIGNS STABLE. NO ACUTE CHANGES IN PT CONDITION NOTED. WILL CONTINUE TO MONITOR AND TREAT PER EMAR UNTIL HAND OFF TO DAY SHIFT RN.
--- NOTE | 2019-09-24 19:17 | NUR ---
SHIFT SUMMARY. A&OX4, PT ON BEDREST, NWB R LEG. MRI TO R LEG COMPLETED. DR. TALLEY SEEN PT THIS AM WITH DR. DELANEY. DR. TALLEY BY THIS AFTERNOON FOR NEEDLE ASPIRATION OF R FOOT, PT WAS AT MRI. DR. TALLEY NOTIFIED WHEN PT RETURNED FROM MRI. PT DENIES PAIN, SOB, N/V.
[2019-09-24 20:12] LABS: RBC Count, Body Fluid 1100000 /mm3 (0-0)
[2019-09-24 20:46] LABS: Automated BF WBC Count >200.000 K/mm3 (0-999); Body Fluid WBC Count 200001 /mm3 (0-999)
[2019-09-24 21:23] LABS: Appearance, Body Fluid Bloody (Clear); Color, Body Fluid Red (None-Yellow); Total Cell Count, Body Fluid 100
--- NOTE | 2019-09-25 01:56 | NUR ---
DR. TALLEY SAW PT TOWARDS BEGINNING OF SHIFT AND PERFORMED A NEEDLE ASPIRATION OF R FOOT. POSSIBLE SURGERY ON 09/25/19. NPO AT MIDNIGHT.
--- NOTE | 2019-09-25 04:10 | NUR ---
GREASE RACK WORKER SUMMARY PT A/O X4. CURRENTLY ON BEDREST. PT NPO SINCE MIDNIGHT FOR POSSIBLE SURGERY. STATED PT MIGHT HAVE BELOW KNEE AMPUTATION ON 09/25/18 OR 09/26/19. PT STATES PAIN TOLERABLE. NO COMPLAINTS OF NAUSEA OR SOB. VSS, WILL CONTINUE TO MONITOR.
[2019-09-25 05:24] LABS: BASOPHILS ABSOLUTE AUTO 0.02 K/mm3 (0.00-0.23); BASOPHILS PERCENT AUTO 0 % (0-2); EOSINOPHILS ABSOLUTE AUTO 0.14 K/mm3 (0.00-0.68); EOSINOPHILS PERCENT AUTO 1 % (0-6); Hematocrit 25.4 % (37.0-53.0); IMMATURE GRAN ABSOLUTE AUTO 0.06 K/mm3 (0.00-0.10); IMMATURE GRAN PERCENT AUTO 1 % (0-1); LYMPHOCYTES ABSOLUTE AUTO 1.36 K/mm3 (0.84-5.20); LYMPHOCYTES PERCENT AUTO 14 % (21-46); MONOCYTES ABSOLUTE AUTO 1.07 K/mm3 (0.16-1.47); MONOCYTES PERCENT AUTO 11 % (4-13); Mean Corpuscular HGB 28.5 pg (26.0-34.0); Mean Corpuscular HGB Conc 31.5 g/dL (31.5-36.5); Mean Corpuscular Volume 90 fL (80-100); Mean Platelet Volume 9.1 fL (9.1-12.4); NEUTROPHILS ABSOLUTE AUTO 7.02 K/mm3 (1.96-9.15); NEUTROPHILS PERCENT AUTO 73 % (41-73); Platelet Count 300 K/mm3 (150-400); RDW Standard Deviation 53.4 fL (35.1-46.3); Red Blood Cell Count 2.81 M/mm3 (4.30-5.90); White Blood Cell Count 9.67 K/mm3 (4.00-11.30)
[2019-09-25 06:06] LABS: Albumin, Blood 1.9 g/dL (3.4-5.0); Anion Gap 8 mmol/L (6-16); Blood Urea Nitrogen 27 mg/dL (8-24); Bun/Creatinine Ratio 17.6 (12.0-20.0); CO2, Blood 23 mmol/L (21-32); Calcium, Blood 8.3 mg/dL (8.5-10.1); Chloride, Blood 101 mmol/L (98-108); Creatinine, Blood 1.53 mg/dL (0.60-1.20); Glomerular Filtration Rate 47 (60-); Glucose, Blood 103 mg/dL (70-99); Phosphorus, Blood 3.5 mg/dL (2.5-4.9); Potassium, Blood 4.1 mmol/L (3.5-5.5); Sodium, Blood 132 mmol/L (136-145)
--- NOTE | 2019-09-25 07:14 | NUR ---
Met with pt at 0700 to ask permission to provide care for the day. Pt agreed.
--- NOTE | 2019-09-25 10:35 | NUR ---
Pt is AOx4. YUROK. Pt is currently bedrest due to swelling of rt foot. Able to turn independantly in bed. Spouse is at bedside.
--- NOTE | 2019-09-25 11:14 | NUR ---
pt refused brief change.
[2019-09-25 15:26] LABS: Vancomycin, Trough 18.7 ug/mL (5.0-10.0)
--- NOTE | 2019-09-25 17:59 | NUR ---
PATIENT GAVE STUDENT NURSE PERMISSION TO PROVE CARE FOR 09/25/2019.
--- NOTE | 2019-09-25 19:14 | NUR ---
SHIFT SUMMARY. PT CONTINUES TO DENY PAIN, SOB, N/V. PT IS TO BE NPO AFTER MIDNIGHT FOR POSSIBLE SURGERY TOMORROW AFTERNOON, PT IS AWARE. NO NEW CHANGES OR CONCERNS.
--- NOTE | 2019-09-26 04:14 | NUR ---
PT'S BLOOD CULTURE CAME BACK GRAM POSITIVE COCCI IN CLUSTERS. PT IS RECIEVING VANCO IV DAILY. I NOTIFIED DR. PULIDO OF THIS AND THAT HE IS ALSO SCHUDULED TO HAVE SURGERY TODAY. NO NEW ORDERS OR CHANGES INDICATED FROM DR. PULIDO.
--- NOTE | 2019-09-26 05:26 | NUR ---
ACID CHANGER SUMMARY PT A/O X4. ON BED REST. SLEPT WELL TONIGHT. TAKEN SYNTHROID AND B-VITAMIN WITH LITTLE SIP OF WATER THIS MORNING, OTHER THAN THAT, PT'S BEEN NPO SINCE MIDNIGHT. NO ACUTE CHANGES. SEE PREVIOUS NOTE RELATING TO POSITIVE BLOOD CULTURE.
[2019-09-26 05:33] LABS: Hematocrit 23.9 % (37.0-53.0); Hemoglobin 7.3 g/dL (13.5-17.5)
[2019-09-26 05:58] LABS: Albumin, Blood 1.9 g/dL (3.4-5.0); Anion Gap 4 mmol/L (6-16); Blood Urea Nitrogen 27 mg/dL (8-24); CO2, Blood 26 mmol/L (21-32); Calcium, Blood 8.2 mg/dL (8.5-10.1); Chloride, Blood 101 mmol/L (98-108); Creatinine, Blood 1.35 mg/dL (0.60-1.20); Glomerular Filtration Rate 54 (60-); Glucose, Blood 100 mg/dL (70-99); Phosphorus, Blood 3.9 mg/dL (2.5-4.9); Sodium, Blood 131 mmol/L (136-145)
--- NOTE | 2019-09-26 12:37 | NUR ---
Echocardiogram completed.
--- NOTE | 2019-09-26 13:34 | NUR ---
1325 PT TO DAY SURGERY VIA SHERRY GIBBS TRANSFERED BY FOUR STAFF. 1 UNIT PRBC INFUSED THIS AM.
[2019-09-26 14:30] LABS: Hematocrit 27.4 % (37.0-53.0); Hemoglobin 8.4 g/dL (13.5-17.5)
--- NOTE | 2019-09-26 16:07 | NUR ---
09/26/19 1607 Siva Butts PATIENT ON SCHEDULED ANTIBIOTICS
[2019-09-26 19:06] LABS: Hematocrit 27.3 % (37.0-53.0); Hemoglobin 8.5 g/dL (13.5-17.5)
--- NOTE | 2019-09-26 19:16 | NUR ---
SHIFT SUMMARY. A&OX4, BEREST R/T NWB TO R LEG. PT TOLERATED SURGERY WELL, GOOD CIRULATION TO TOES, TOES WARM, WOUND VAC PATENT, DRESSING C/D/I. PT DENIES PAIN, SOB, N/V. AT BEDSIDE MOST OF SHIFT.
--- NOTE | 2019-09-27 05:06 | NUR ---
SHIFT SUMMARY: VSS. AFEB. [place]. DENIES PAIN. WOUND VAC ATTACHED TO BOTH R ANTERIOR VALERA AND R FOOT. PROVIDING CONT SUCTION AT 100MM/HG. SMALL AMT OF SERO SANG DRAINAGE PRODUCED. RLE WITH 3+ PITTING EDEMA. ELEVATED ON PILLOW. DIFFICULT TO VISUALIZE CAP REFILL. COLOR OF RLE COMPARABLE TO THAT OF LLE. PT REMAINED AWAKE MUCH OF THE NIGHT. PLEASANT AND ASKING QUESTIONS. BED LOW, CALL BUTTON IN REACH. WILL CONT TO MONITOR.
[2019-09-27 05:58] LABS: BASOPHILS ABSOLUTE AUTO 0.01 K/mm3 (0.00-0.23); BASOPHILS PERCENT AUTO 0 % (0-2); EOSINOPHILS PERCENT AUTO 0 % (0-6); Hematocrit 23.3 % (37.0-53.0); Hemoglobin 7.1 g/dL (13.5-17.5); IMMATURE GRAN ABSOLUTE AUTO 0.09 K/mm3 (0.00-0.10); IMMATURE GRAN PERCENT AUTO 1 % (0-1); LYMPHOCYTES ABSOLUTE AUTO 0.73 K/mm3 (0.84-5.20); LYMPHOCYTES PERCENT AUTO 8 % (21-46); MONOCYTES ABSOLUTE AUTO 0.24 K/mm3 (0.16-1.47); MONOCYTES PERCENT AUTO 3 % (4-13); Mean Corpuscular HGB 27.8 pg (26.0-34.0); Mean Corpuscular HGB Conc 30.5 g/dL (31.5-36.5); Mean Corpuscular Volume 91 fL (80-100); Mean Platelet Volume 9.5 fL (9.1-12.4); NEUTROPHILS ABSOLUTE AUTO 7.58 K/mm3 (1.96-9.15); NEUTROPHILS PERCENT AUTO 88 % (41-73); Platelet Count 331 K/mm3 (150-400); RDW Coefficient Variation 15.8 % (11.7-14.2); RDW Standard Deviation 52.9 fL (35.1-46.3); Red Blood Cell Count 2.55 M/mm3 (4.30-5.90); White Blood Cell Count 8.65 K/mm3 (4.00-11.30)
--- NOTE | 2019-09-27 12:49 | NUR ---
HE SAYS HE DID NOT SLEEP ALL NIGHT BECAUSE HE WASN'T TIRED. HE HAS BEEN TRYING TO SLEEP THE PAST 2 HRS BUT OUR CARE AND A VISIT FROM HIS AND LATER HIS EXTRUDER OPERATOR HELPER HAVE NOT ALLOWED HIM MUCH SLEEP SO FAR. CPAP ON FOR SLEEP. POST OP Q4HR VS STABLE. IV ANTIBIOTIC CHANGED. WOUND VAC WITH GOOD SUCTION. SMALL AMT OF DRAINAGE. H&H DROPPED AGAIN. NO TRAPEZE AVAILABLE ON THE 3RD FLOOR. WILL LOOK ON 2ND FLOOR THIS AFTERNOON.
[2019-09-27 17:01] LABS: Hematocrit 23.4 % (37.0-53.0); Hemoglobin 7.3 g/dL (13.5-17.5)
--- NOTE | 2019-09-27 17:03 | NUR ---
SPOKE WITH DR TALLEY, PER DR MAYANK KELSEY FOR PT TO RESUME ELIQUIS.
[2019-09-27 17:27] LABS: Percent Saturation 40.8 % (20.0-50.0)
--- NOTE | 2019-09-27 18:34 | NUR ---
HIS IS AT THE BEDSIDE. HE ATE DINNER WELL. ANTIBIOTIC DRUG WAS CHANGED EARLIER TODAY. NOW AFTER WAS CONSULTED ABOUT RESUMING IVY'S BLOOD THINNER, A HEPARIN DRIP HAS BEEN ORDERED. WAITING FOR THE PTT RESULT AND THE HEPARIN ORDERS. ALSO 2 UNITS OF BLOOD HAVE BEEN ORDERED TO GIVE. CHARGE NURSE WILL PLACE A 2ND IV ACCESS. I HAVE LET THE PATIENT KNOW ABOUT THESE NEW ORDERS. HE HAS HAD NO COMPLAINTS TODAY.
--- NOTE | 2019-09-28 03:04 | NUR ---
UNABLE TO OBTAIN 0000 APTT LAB SPECIMEN DUE TO PT RECEIVING BLOOD TRANSFUSION AT ORDERED TIME. SPOKE WITH AIDAN LOPEZ AT THAT TIME. PT RECEIVING 2 UNITS AND IS AT THIS TIME - 0300- STILL BEING TRANSFUSED. PHARMACIST STATED OK TO WAIT ON THIS AM PTT AND COMPLETE IT WITH THE REST OF AM ORDERED BLOOD WORK.
--- NOTE | 2019-09-28 04:53 | NUR ---
SHIFT SUMMARY: VSS. AFEB. RECIEVED 2 UNITS OF BLOOD ORDERED. HEPARIN INFUSING. WOUND VAC TO RLE INTACT AND SUCTIONING AT 100MM/HG. PRODUCING SCANT SEROSANG DRAINAGE. RLE CONT WITH 3+ EDEMA. DENIES PAIN. SLEPT INTERMITTENTLY. HAS BEEN WEARING CPAP. BED LOW, CALL BUTTON IN REACH. WILL CONT TO MONITOR. .
[2019-09-28 05:45] LABS: BASOPHILS ABSOLUTE AUTO 0.03 K/mm3 (0.00-0.23); BASOPHILS PERCENT AUTO 0 % (0-2); EOSINOPHILS ABSOLUTE AUTO 0.11 K/mm3 (0.00-0.68); EOSINOPHILS PERCENT AUTO 1 % (0-6); Hematocrit 27.5 % (37.0-53.0); Hemoglobin 8.7 g/dL (13.5-17.5); IMMATURE GRAN ABSOLUTE AUTO 0.16 K/mm3 (0.00-0.10); IMMATURE GRAN PERCENT AUTO 2 % (0-1); LYMPHOCYTES PERCENT AUTO 21 % (21-46); MONOCYTES ABSOLUTE AUTO 0.89 K/mm3 (0.16-1.47); MONOCYTES PERCENT AUTO 9 % (4-13); Mean Corpuscular HGB 28.4 pg (26.0-34.0); Mean Corpuscular HGB Conc 31.6 g/dL (31.5-36.5); Mean Corpuscular Volume 90 fL (80-100); Mean Platelet Volume 9.1 fL (9.1-12.4); NEUTROPHILS ABSOLUTE AUTO 6.39 K/mm3 (1.96-9.15); NEUTROPHILS PERCENT AUTO 67 % (41-73); Platelet Count 327 K/mm3 (150-400); RDW Standard Deviation 52.5 fL (35.1-46.3); Red Blood Cell Count 3.06 M/mm3 (4.30-5.90); White Blood Cell Count 9.58 K/mm3 (4.00-11.30)
[2019-09-28 06:18] LABS: Anion Gap 8 mmol/L (6-16); Blood Urea Nitrogen 25 mg/dL (8-24); Bun/Creatinine Ratio 17.6 (12.0-20.0); CO2, Blood 26 mmol/L (21-32); Calcium, Blood 8.1 mg/dL (8.5-10.1); Chloride, Blood 102 mmol/L (98-108); Creatinine, Blood 1.42 mg/dL (0.60-1.20); Glomerular Filtration Rate 51 (60-); Glucose, Blood 103 mg/dL (70-99); Phosphorus, Blood 3.8 mg/dL (2.5-4.9); Potassium, Blood 4.1 mmol/L (3.5-5.5); Sodium, Blood 136 mmol/L (136-145)
--- NOTE | 2019-09-28 16:13 | NUR ---
STILL NO COMPLAINTS TODAY. HIS IS AT THE BEDSIDE. THEY ARE WATCHING THE SUPER BOWL. WOUND VAC WITH GOOD SUCTION. NO PROBLEMS WITH THE DRESSING. HE USES THE TRAPEZE WELL. HE SLEPT ALL MORNING ON HIS L SIDE. HE USES THE URINAL TO VOID BUT HAS SPILLAGE. ATTENDS CHANGED. PERICARE DONE. BARRIER CREAM APPLIED. AREA VERY RED. IT IS A SOLID RED SO LOOKS MORE LIKE IRRITATION THAN YEAST. SAYS IT LOOKS BETTER TODAY. NO PROPHYLACTIC FOAM DRESSING NEEDED ON COCCYX. NO REDNESS THERE JUST A SMALL PATCH NEAR THE ANUS. BARRIER CREAM APPLIED THERE TOO. HE SAID HE FEELS LIKE HE MAY BE ABLE TO HAVE A BM TODAY. HE DOES NOT WANT TO TRY TO PIVOT ON HIS GOOD LEG. HE'D RATHER USE THE BEDPAN.
--- NOTE | 2019-09-29 05:20 | NUR ---
SHIFT SUMMARY: VSS. AFEB. A/OX3. MAKES NEEDS KNOWN. DENIES PAIN. SLEPT BETTER TONIGHT. WOUND VAC IN PLACE TO RLE- PROVIDING CONT SUCTION AT 100 MMHG. SCANT TO NO DRAINAGE BEING PRODUCED. CONT WITH REDNESS AND SWELLING TO RLE- ELEVATED ON PILLOW. GROIN VERY RED, WILL COMMUNICATE TO DAY SHIFT NEED FOR ANTIFUNGAL POWDER. BED LOW, CALL BUTTON IN REACH. WILL CONT TO MONITOR.
[2019-09-29 07:16] LABS: Hematocrit 29.5 % (37.0-53.0); Hemoglobin 9.5 g/dL (13.5-17.5); Mean Corpuscular HGB 28.5 pg (26.0-34.0); Mean Corpuscular HGB Conc 32.2 g/dL (31.5-36.5); Mean Corpuscular Volume 89 fL (80-100); Mean Platelet Volume 9.3 fL (9.1-12.4); Platelet Count 315 K/mm3 (150-400); RDW Coefficient Variation 16.3 % (11.7-14.2); RDW Standard Deviation 52.3 fL (35.1-46.3); Red Blood Cell Count 3.33 M/mm3 (4.30-5.90); White Blood Cell Count 8.22 K/mm3 (4.00-11.30)
[2019-09-29 07:21] LABS: Albumin, Blood 2.1 g/dL (3.4-5.0); Anion Gap 6 mmol/L (6-16); Blood Urea Nitrogen 22 mg/dL (8-24); Bun/Creatinine Ratio 16.2 (12.0-20.0); CO2, Blood 27 mmol/L (21-32); Calcium, Blood 8.1 mg/dL (8.5-10.1); Chloride, Blood 102 mmol/L (98-108); Creatinine, Blood 1.36 mg/dL (0.60-1.20); Glomerular Filtration Rate 54 (60-); Glucose, Blood 93 mg/dL (70-99); Phosphorus, Blood 4.1 mg/dL (2.5-4.9); Potassium, Blood 4.2 mmol/L (3.5-5.5); Sodium, Blood 135 mmol/L (136-145)
--- NOTE | 2019-09-29 14:06 | NUR ---
PATIENT GAVE THIS STUDENT PERMISSION TO PROVIDE CARE ON 08/30/19
--- NOTE | 2019-09-29 18:40 | NUR ---
SHIFT SUMMARY- PT ALERT AND ORIENTED X3. SEEMS COMPLETLY ORIENTED BUT JUST A LITTLE OFF DIFFICULTY FOLLOWING INSTRUCTIONS. WOUND VAC WAS CHANGED TODAY BY DR TALLEY IN THE MORNING NO PHOTOS WERE OBTAINED WE NEED PHOTOS FOR THE PT HARD CHART ON THE NEXT WOUND VAC CHANGE. PT WAS SEEN BY DR CONNELLY WHO CHANGED HIS ABX TREATMENT. STATED THE PT WILL HAVE TO HAVE 6 WEEKS ABX THERAPY AND THEN SWITCH TO ORAL ABX INDEFINATELY TO KEEP THE INFECTION FROM SPREADING. PT IS NOT OPEN TO AMPUTATION AT THIS TIME. PT STILL ON A HEPARIN DRIP, Hx AFIB AND DVT. POSSIBLY PT WILL BE SWITCHED TO ORAL ANTICOAGULATION ONCE IT IS CERTAIN PT WILL NOT GO BACK TO SURGERY. PT HAS HAD NO C/O PAIN T/O THE DAY. N/T AT BASELINE. PT WAS RECIEVING BG AC/HS RECIEVD ORDER TO DC TODAY. PT WANTS TO GO HOME, BUT IS COMPLIANT WITH CARE FROM STAFF. PT USES THE URINAL INDEPENDENTLY HOWEVER SPILLS OFTEN. STAFF CHANGE Q2 HOURS TO PREVENT FURTHER SKIN BREAKDOWN. PT HAS EXTREME REDNESS IN THE GROIN THAT STAFF HAVE CLEANED AND DRIED AND APPLIED NYSTATIN TO T/O THE SHIFT. PT DOES NOT KNOW WHEN HE IS WET AND WILL TELL STAFF HE IS DRY WHEN HE IS NOT. STAFF MUST CHECK ATTENDS.
--- NOTE | 2019-09-30 07:38 | NUR ---
SHIFT SUMMARY PATIENT ALERT AND ORIENTED, DID NOT GET MUCH SLEEP OVERNIGHT. WOUND VAC ATTACHED TO RIGHT FOOT AND DRAINING. IV IN RIGHT FOREARM PATENT AND FLUSHED. IV IN LEFT FOREARM PATENT AND INFUSING WITH HEPARIN, RATE MAINTAINED BY PHARMACY. BED IN LOWEST POSITION WITH WHEELS LOCKED. CALL LIGHT WITHIN REACH. REPORT GIVEN TO ONCOMING RN.
--- NOTE | 2019-09-30 14:04 | NUR ---
Patient gave permission to give care 08/30/2019
--- NOTE | 2019-09-30 18:54 | NUR ---
SUMMARY: PT IS POD4 FOR I&D OF R ANKLE. NO ACUTE CHANGE TODAY. PT IS A/O, VSS. PICC LINE PLACED FOR INSURANCE CLAIMS ASSISTANT ANTIBIOTICS. WOUND VAC IS WNL. PT ABLE TO MOVE WELL IN BED. PT HAS DENIED PAIN. DR. VERONICA CONSULTED, DID NOT SEE PT TODAY. NO ACUTE SAFETY CONCERNS AT THIS TIME. WILL CTM AND REPORT TO CHELSEY MARTINEZ.
--- NOTE | 2019-10-01 07:39 | NUR ---
PATIENT ACCIDENTLY PULLED OFF ONE OF HIS WOUND VAC DRESSINGS, THE LOWER OF THE TWO, ON THE TOP OF THE FOOT. WE CLEANED HIM UP AND REPLACED THE TEGADERM. PT IS PLEASANT BUT CONFUSED. HIS BED IS LOW, LOCKED, ALARMED. HE JUST SEEMS ALL OVER THE BED. RESTLESS. GAVE TYLENOL ONCE THIS SHIFT BUT PATIENT MOSTLY DENIES PAIN. HEPARIN DRIP WAS ADJUSTED THIS SHIFT PER EMAR.
--- NOTE | 2019-10-01 18:49 | NUR ---
SHIFT SUMMARY PATIENT DENIES PAIN, NAUSEA, AND SHORTNESS OF BREATH. PATIENT DECLINED TO WORK WITH PT TODAY. PATIENT REPOSITIONED IN BED. WOUND VAC CHANGED. DR. TALLEY CONSULTED. HEPARIN DRIP STOPPED AND ELEQUIS RESTARTED. PATIENT ANTICIPATING A DISCHARGE TO REHAB. CALL LIGHT IN REACH.
--- NOTE | 2019-10-02 05:31 | NUR ---
SHIFT SUMMARY PT IS A 79 Y/O MALE, ADMITTED FOR RLE OSTEOMYELITIS. HE IS A&O X 2-3, CONFUSED/FORGETFUL AT TIMES. PT IS CURRENTLY ON BEDREST, NWB ON RLE. HE WAS MEDICATED ONCE FOR PAIN AT HS WITH PRN TYLENOL. NO COMPLAINTS OF NAUSEA OR SOB. PT SLEPT WELL DURING THE NIGHT. VS STABLE. WOUND VAC IN PLACE AND PATENT. SMALL AMOUNT OF SANGUINOUS OUTPUT FROM WOUND VAC. NO OTHER ACUTE CHANGES IN PT CONDITION NOTED DURING THE NIGHT. WILL CONTINUE TO MONITOR AND TREAT PER EMAR UNTIL HAND OFF TO DAY SHIFT RN.
[2019-10-02] MEDS ORDERED: ACET325 PO (11:24)
[2019-10-02] MEDS ORDERED: NEPHRO-VITE RX1 EACH PO (11:25)
[2019-10-02] MEDS ORDERED: Ceftriaxone2 G2 IV (11:26)
[2019-10-02] MEDS ORDERED: DOCU100 PO (11:27)
[2019-10-02] MEDS ORDERED: Ferrous Glucon324 M1 PO (11:27)
[2019-10-02] MEDS ORDERED: Vsl#3 Capsule1 EACH (11:29)
[2019-10-02] MEDS ORDERED: MILK OF MA400 MG/5 M PO (11:30)
[2019-10-02] MEDS ORDERED: Pedi-Dri 100,0060 GM TOP (11:31)
[2019-10-02] MEDS ORDERED: RIFA300 PO (11:31)
[2019-10-02] MEDS ORDERED: ZINC30 MG PO (11:34)
--- NOTE | 2019-10-02 14:16 | NUR ---
DISCHARGE DISCHARGE TO SNF FOR REHAB. PATIENT TRANSFERED VIA WHEELCHAIR TRANSPORT. DISCHARGE PACKET GIVEN TO BAD CLOTH CHECKER. REPORT CALLED TO [facility] NURSE. HOSPITAL WOUND VAC REMOVED AND WOUNDS DRESSED FOR TRANSPORT. PATIENT WOUND VAC HAS BEEN DELIVERED TO [facility] AND WILL BE PUT ON THERE. PERIPHERAL IV REMOVED WITHOUT DIFFICULTY. PATIENT DISCHARGED WITH PICC LINE FOR MERCHANDISE FLOW TEAM MEMBER ANTIBIOTIC THERAPY. PATIENT'S AT BEDSIDE FOR DISCAHRGE.
== END 2019-10-02 13:45 | DRG 854 ==
LOC: ER 17:25 → MEDS 21:52
PROVIDERS: Internal Medicine; Orthopaedic Surgery; Pharmacist; Physician Assistant; ADMIT Internal Medicine
PROC: 30243N1 Transfusion of Nonautologous Red Blood Cells into Central Vein, Percutaneous Approach (ICD-10-PCS; 2019-09-26)
PROC: 0QBN0ZZ Excision of Right Metatarsal, Open Approach (ICD-10-PCS; 2019-09-28)
PROC: 0HDKXZZ Extraction of Right Lower Leg Skin, External Approach (ICD-10-PCS; 2019-09-28)
PROC: 02HV33Z Insertion of Infusion Device into Superior Vena Cava, Percutaneous Approach (ICD-10-PCS; principal; 2019-09-30)
DX: A41.02 Sepsis due to Methicillin resistant Staphylococcus aureus (principal); I50.32 Chronic diastolic (congestive) heart failure; I13.0 Hypertensive heart and chronic kidney disease with heart failure and stage 1 through stage 4 chronic kidney disease, or unspecified chronic kidney disease; I48.20 Chronic atrial fibrillation, unspecified; M86.10 Other acute osteomyelitis, unspecified site; E87.1 Hypo-osmolality and hyponatremia; D62 Acute posthemorrhagic anemia; L02.611 Cutaneous abscess of right foot; L03.115 Cellulitis of right lower limb; N18.3 Chronic kidney disease, stage 3 (moderate); M10.9 Gout, unspecified; G47.33 Obstructive sleep apnea (adult) (pediatric); E66.01 Morbid (severe) obesity due to excess calories; Z98.52 Vasectomy status; F17.220 Nicotine dependence, chewing tobacco, uncomplicated; Z68.29 Body mass index [BMI] 29.0-29.9, adult; E03.9 Hypothyroidism, unspecified; I95.89 Other hypotension; G47.00 Insomnia, unspecified
CPT/HCPCS: 36415; 36430; 36569; 71045; 73590; 73630; 73701; 73720; 80048; 80053; 80069; 80202; 82607; 82728; 82746; 82947; 83540; 83550; 83605; 84443; 85014; 85018; 85025; 85027; 85610; 85651; 85730; 86140; 86850; 86900; 86901; 86923; 87040; 87070; 87071; 87075; 87077; 87186; 87205; 89051; 90686; 93005; 93010; 93308; 93922; 93971; 94762; 97110; 97162; 97167; 97530; 99285-25; A9270; A9270-GY; A9577; C1751; G0008; J0690; J0696; J1644; J1650; J1956; J2370; J2704; J3010; J3370; J7050; J7120; P9016; Q9967

== ENCOUNTER 2019-11-28 01:16 | Day surgery (SDC) | payer MEDICARE ==
[~2019-11-28 01:16] MED LIST changes: +Bumetanide0.5 MG PO; +Ceftriaxone2 G2 IV; +DOCU100 PO; +Ferrous Glucon324 M1 PO; +IRON18 MG PO; +Klor-Con 1010 MEQ PO; +LEVSOD75 PO; +MILK OF MA400 MG/5 M PO; +NEPHRO-VITE RX1 EACH PO; +Pedi-Dri 100,0060 GM TOP; +RIFA300 PO; +Vsl#3 Capsule1 EACH; +ZINC15 PO; +ZINC30 MG PO
== END 2019-11-28 23:02 | disposition home or self-care (01) ==
LOC: WOUND 01:16
DX: L97.815 Non-pressure chronic ulcer of other part of right lower leg with muscle involvement without evidence of necrosis (principal); I13.0 Hypertensive heart and chronic kidney disease with heart failure and stage 1 through stage 4 chronic kidney disease, or unspecified chronic kidney disease; N18.3 Chronic kidney disease, stage 3 (moderate); I50.32 Chronic diastolic (congestive) heart failure; G47.33 Obstructive sleep apnea (adult) (pediatric); I48.20 Chronic atrial fibrillation, unspecified; D63.1 Anemia in chronic kidney disease; M10.9 Gout, unspecified; E66.01 Morbid (severe) obesity due to excess calories; F17.220 Nicotine dependence, chewing tobacco, uncomplicated; A52.16 Charcot's arthropathy (tabetic); L03.115 Cellulitis of right lower limb; B95.61 Methicillin susceptible Staphylococcus aureus infection as the cause of diseases classified elsewhere; F32.9 Major depressive disorder, single episode, unspecified; G47.00 Insomnia, unspecified; D62 Acute posthemorrhagic anemia; Z79.899 Other long term (current) drug therapy; Z88.2 Allergy status to sulfonamides; Z90.49 Acquired absence of other specified parts of digestive tract; Z99.89 Dependence on other enabling machines and devices
CPT/HCPCS: G0463

== ENCOUNTER 2019-12-02 00:42 | Day surgery (SDC) | payer MEDICARE | END 2019-12-02 22:50 | disposition home or self-care (01) | LOC: WOUND 00:42 | DX: L97.818 Non-pressure chronic ulcer of other part of right lower leg with other specified severity (principal); L97.512 Non-pressure chronic ulcer of other part of right foot with fat layer exposed ==

== ENCOUNTER 2019-12-04 10:14 | Day surgery (SDC) | payer MEDICARE | END 2019-12-04 22:55 | disposition home or self-care (01) | LOC: WOUND 10:14 | DX: L97.818 Non-pressure chronic ulcer of other part of right lower leg with other specified severity (principal); L97.512 Non-pressure chronic ulcer of other part of right foot with fat layer exposed; I11.0 Hypertensive heart disease with heart failure; I50.32 Chronic diastolic (congestive) heart failure; G47.33 Obstructive sleep apnea (adult) (pediatric); F17.200 Nicotine dependence, unspecified, uncomplicated; Z79.899 Other long term (current) drug therapy; Z79.01 Long term (current) use of anticoagulants ==

== ENCOUNTER 2019-12-05 08:47 | Day surgery (SDC) | payer MEDICARE | END 2019-12-05 22:37 | disposition home or self-care (01) | LOC: WOUND 08:47 | DX: L97.818 Non-pressure chronic ulcer of other part of right lower leg with other specified severity (principal); L97.512 Non-pressure chronic ulcer of other part of right foot with fat layer exposed; I11.0 Hypertensive heart disease with heart failure; I50.32 Chronic diastolic (congestive) heart failure; I48.91 Unspecified atrial fibrillation; G47.33 Obstructive sleep apnea (adult) (pediatric) ==

== ENCOUNTER 2019-12-08 01:21 | Day surgery (SDC) | payer MEDICARE | END 2019-12-08 22:54 | disposition home or self-care (01) | LOC: WOUND 01:21 | DX: L97.818 Non-pressure chronic ulcer of other part of right lower leg with other specified severity (principal); L97.512 Non-pressure chronic ulcer of other part of right foot with fat layer exposed; I11.0 Hypertensive heart disease with heart failure; I50.32 Chronic diastolic (congestive) heart failure; F17.200 Nicotine dependence, unspecified, uncomplicated; Z79.899 Other long term (current) drug therapy; Z79.01 Long term (current) use of anticoagulants ==

== ENCOUNTER 2019-12-11 00:13 | Day surgery (SDC) | payer MEDICARE | END 2019-12-11 22:44 | disposition home or self-care (01) | LOC: WOUND 00:13 | DX: L97.818 Non-pressure chronic ulcer of other part of right lower leg with other specified severity (principal); L97.512 Non-pressure chronic ulcer of other part of right foot with fat layer exposed; I11.0 Hypertensive heart disease with heart failure; I50.32 Chronic diastolic (congestive) heart failure; I48.91 Unspecified atrial fibrillation; F17.200 Nicotine dependence, unspecified, uncomplicated ==

== ENCOUNTER 2019-12-15 00:13 | Day surgery (SDC) | payer MEDICARE | END 2019-12-15 22:49 | disposition home or self-care (01) | LOC: WOUND 00:13 | DX: L97.512 Non-pressure chronic ulcer of other part of right foot with fat layer exposed (principal); L97.818 Non-pressure chronic ulcer of other part of right lower leg with other specified severity; I11.0 Hypertensive heart disease with heart failure; I50.32 Chronic diastolic (congestive) heart failure; I48.91 Unspecified atrial fibrillation; G47.33 Obstructive sleep apnea (adult) (pediatric); D63.8 Anemia in other chronic diseases classified elsewhere; Z79.01 Long term (current) use of anticoagulants; Z79.899 Other long term (current) drug therapy ==

== ENCOUNTER 2019-12-18 00:17 | Day surgery (SDC) | payer MEDICARE | END 2019-12-18 22:48 | disposition home or self-care (01) | LOC: WOUND 00:17 | DX: L97.818 Non-pressure chronic ulcer of other part of right lower leg with other specified severity (principal); L97.512 Non-pressure chronic ulcer of other part of right foot with fat layer exposed; I11.0 Hypertensive heart disease with heart failure; I50.32 Chronic diastolic (congestive) heart failure; G47.33 Obstructive sleep apnea (adult) (pediatric); F17.200 Nicotine dependence, unspecified, uncomplicated; Z79.899 Other long term (current) drug therapy; Z79.01 Long term (current) use of anticoagulants ==

== ENCOUNTER 2019-12-22 00:11 | Day surgery (SDC) | payer MEDICARE | END 2019-12-22 22:58 | disposition home or self-care (01) | LOC: WOUND 00:11 | DX: T81.89XA Other complications of procedures, not elsewhere classified, initial encounter (principal); L97.512 Non-pressure chronic ulcer of other part of right foot with fat layer exposed; L97.812 Non-pressure chronic ulcer of other part of right lower leg with fat layer exposed; R60.0 Localized edema; I10 Essential (primary) hypertension; G47.33 Obstructive sleep apnea (adult) (pediatric); Z72.0 Tobacco use; Y83.8 Other surgical procedures as the cause of abnormal reaction of the patient, or of later complication, without mention of misadventure at the time of the procedure ==

== ENCOUNTER 2019-12-29 00:26 | Day surgery (SDC) | payer MEDICARE | END 2019-12-29 22:45 | disposition home or self-care (01) | LOC: WOUND 00:26 | DX: L97.818 Non-pressure chronic ulcer of other part of right lower leg with other specified severity (principal); L97.512 Non-pressure chronic ulcer of other part of right foot with fat layer exposed ==

== ENCOUNTER 2020-01-05 00:27 | Day surgery (SDC) | payer MEDICARE | END 2020-01-05 22:47 | disposition home or self-care (01) | LOC: WOUND 00:27 | DX: L97.818 Non-pressure chronic ulcer of other part of right lower leg with other specified severity (principal); L97.512 Non-pressure chronic ulcer of other part of right foot with fat layer exposed; D63.8 Anemia in other chronic diseases classified elsewhere; I11.0 Hypertensive heart disease with heart failure; I50.32 Chronic diastolic (congestive) heart failure; I48.91 Unspecified atrial fibrillation; G47.33 Obstructive sleep apnea (adult) (pediatric) ==

== ENCOUNTER 2020-01-12 01:02 | Day surgery (SDC) | payer MEDICARE | END 2020-01-12 22:47 | disposition home or self-care (01) | LOC: WOUND 01:02 | DX: L97.818 Non-pressure chronic ulcer of other part of right lower leg with other specified severity (principal); L97.512 Non-pressure chronic ulcer of other part of right foot with fat layer exposed; I11.0 Hypertensive heart disease with heart failure; I50.32 Chronic diastolic (congestive) heart failure; G47.33 Obstructive sleep apnea (adult) (pediatric); Z79.899 Other long term (current) drug therapy; Z79.01 Long term (current) use of anticoagulants ==

== ENCOUNTER 2020-01-12 10:55 | Day surgery (SDC) | payer MEDICARE | END 2020-01-12 22:47 | disposition home or self-care (01) | LOC: HBO 10:55 | DX: L97.818 Non-pressure chronic ulcer of other part of right lower leg with other specified severity (principal); L97.512 Non-pressure chronic ulcer of other part of right foot with fat layer exposed | CPT/HCPCS: G0277 ==

== ENCOUNTER 2020-01-14 00:16 | Day surgery (SDC) | payer MEDICARE | END 2020-01-14 22:45 | disposition home or self-care (01) | LOC: HBO 00:16 | DX: L97.818 Non-pressure chronic ulcer of other part of right lower leg with other specified severity (principal); L97.512 Non-pressure chronic ulcer of other part of right foot with fat layer exposed | CPT/HCPCS: G0277 ==

== ENCOUNTER 2020-01-15 00:15 | Day surgery (SDC) | payer MEDICARE | END 2020-01-15 23:23 | disposition home or self-care (01) | LOC: HBO 00:15 | DX: L97.818 Non-pressure chronic ulcer of other part of right lower leg with other specified severity (principal); L97.512 Non-pressure chronic ulcer of other part of right foot with fat layer exposed | CPT/HCPCS: G0277 ==

== ENCOUNTER 2020-01-16 00:31 | Day surgery (SDC) | payer MEDICARE | END 2020-01-16 23:10 | disposition home or self-care (01) | LOC: HBO 00:31 | DX: L97.818 Non-pressure chronic ulcer of other part of right lower leg with other specified severity (principal); L97.512 Non-pressure chronic ulcer of other part of right foot with fat layer exposed | CPT/HCPCS: G0277 ==

== ENCOUNTER 2020-01-20 00:13 | Day surgery (SDC) | payer MEDICARE | END 2020-01-20 22:53 | disposition home or self-care (01) | LOC: HBO 00:13 | DX: L97.818 Non-pressure chronic ulcer of other part of right lower leg with other specified severity (principal); L97.512 Non-pressure chronic ulcer of other part of right foot with fat layer exposed | CPT/HCPCS: G0277 ==

== ENCOUNTER 2020-01-20 10:19 | Day surgery (SDC) | payer MEDICARE | END 2020-01-20 22:53 | disposition home or self-care (01) | LOC: WOUND 10:19 | DX: L97.818 Non-pressure chronic ulcer of other part of right lower leg with other specified severity (principal); L97.512 Non-pressure chronic ulcer of other part of right foot with fat layer exposed; I11.0 Hypertensive heart disease with heart failure; I50.32 Chronic diastolic (congestive) heart failure; G47.33 Obstructive sleep apnea (adult) (pediatric); F17.200 Nicotine dependence, unspecified, uncomplicated; Z79.899 Other long term (current) drug therapy; Z79.01 Long term (current) use of anticoagulants ==

== ENCOUNTER 2020-01-21 00:18 | Day surgery (SDC) | payer MEDICARE | END 2020-01-21 22:55 | disposition home or self-care (01) | LOC: HBO 00:18 | DX: L97.818 Non-pressure chronic ulcer of other part of right lower leg with other specified severity (principal); L97.512 Non-pressure chronic ulcer of other part of right foot with fat layer exposed; Z79.899 Other long term (current) drug therapy; Z79.01 Long term (current) use of anticoagulants | CPT/HCPCS: G0277 ==

== ENCOUNTER 2020-01-22 08:45 | Day surgery (SDC) | payer MEDICARE | END 2020-01-22 22:50 | disposition home or self-care (01) | LOC: HBO 08:45 | DX: L97.818 Non-pressure chronic ulcer of other part of right lower leg with other specified severity (principal); L97.512 Non-pressure chronic ulcer of other part of right foot with fat layer exposed | CPT/HCPCS: G0277 ==

== ENCOUNTER 2020-01-23 00:22 | Day surgery (SDC) | payer MEDICARE | END 2020-01-23 23:18 | disposition home or self-care (01) | LOC: HBO 00:22 | DX: L97.818 Non-pressure chronic ulcer of other part of right lower leg with other specified severity (principal); L97.512 Non-pressure chronic ulcer of other part of right foot with fat layer exposed | CPT/HCPCS: G0277 ==

== ENCOUNTER 2020-01-26 00:33 | Day surgery (SDC) | payer MEDICARE | END 2020-01-26 22:59 | disposition home or self-care (01) | LOC: HBO 00:33 | DX: L97.818 Non-pressure chronic ulcer of other part of right lower leg with other specified severity (principal); L97.512 Non-pressure chronic ulcer of other part of right foot with fat layer exposed | CPT/HCPCS: G0277 ==

== ENCOUNTER 2020-01-26 00:36 | Day surgery (SDC) | payer MEDICARE | END 2020-01-26 23:00 | disposition home or self-care (01) | LOC: WOUND 00:36 | DX: L97.818 Non-pressure chronic ulcer of other part of right lower leg with other specified severity (principal); L97.512 Non-pressure chronic ulcer of other part of right foot with fat layer exposed; I11.0 Hypertensive heart disease with heart failure; I50.32 Chronic diastolic (congestive) heart failure; F17.200 Nicotine dependence, unspecified, uncomplicated; Z79.899 Other long term (current) drug therapy; Z79.01 Long term (current) use of anticoagulants ==

== ENCOUNTER 2020-01-27 00:25 | Day surgery (SDC) | payer MEDICARE | END 2020-01-27 23:00 | disposition home or self-care (01) | LOC: HBO 00:25 | DX: L97.818 Non-pressure chronic ulcer of other part of right lower leg with other specified severity (principal); L97.512 Non-pressure chronic ulcer of other part of right foot with fat layer exposed | CPT/HCPCS: G0277 ==

== ENCOUNTER 2020-01-28 00:25 | Day surgery (SDC) | payer MEDICARE | END 2020-01-28 22:54 | disposition home or self-care (01) | LOC: HBO 00:25 | DX: L97.818 Non-pressure chronic ulcer of other part of right lower leg with other specified severity (principal); L97.512 Non-pressure chronic ulcer of other part of right foot with fat layer exposed | CPT/HCPCS: G0277 ==

== ENCOUNTER 2020-01-29 00:21 | Day surgery (SDC) | payer MEDICARE | END 2020-01-29 23:20 | disposition home or self-care (01) | LOC: HBO 00:21 | DX: L97.818 Non-pressure chronic ulcer of other part of right lower leg with other specified severity (principal); L97.512 Non-pressure chronic ulcer of other part of right foot with fat layer exposed | CPT/HCPCS: G0277 ==

== ENCOUNTER 2020-01-30 00:27 | Day surgery (SDC) | payer MEDICARE | END 2020-01-30 23:24 | disposition home or self-care (01) | LOC: HBO 00:27 | DX: L97.818 Non-pressure chronic ulcer of other part of right lower leg with other specified severity (principal); L97.512 Non-pressure chronic ulcer of other part of right foot with fat layer exposed | CPT/HCPCS: G0277 ==

== ENCOUNTER 2020-02-02 00:27 | Day surgery (SDC) | payer MEDICARE | END 2020-02-02 23:14 | disposition home or self-care (01) | LOC: HBO 00:27 | DX: L97.818 Non-pressure chronic ulcer of other part of right lower leg with other specified severity (principal); L97.512 Non-pressure chronic ulcer of other part of right foot with fat layer exposed | CPT/HCPCS: G0277 ==

== ENCOUNTER 2020-02-02 00:36 | Day surgery (SDC) | payer MEDICARE | END 2020-02-02 23:14 | disposition home or self-care (01) | LOC: WOUND 00:36 | DX: L97.818 Non-pressure chronic ulcer of other part of right lower leg with other specified severity (principal); L97.512 Non-pressure chronic ulcer of other part of right foot with fat layer exposed; I11.0 Hypertensive heart disease with heart failure; I50.32 Chronic diastolic (congestive) heart failure; I48.91 Unspecified atrial fibrillation; G47.33 Obstructive sleep apnea (adult) (pediatric); D63.8 Anemia in other chronic diseases classified elsewhere ==

== ENCOUNTER 2020-02-03 00:05 | Day surgery (SDC) | payer MEDICARE | END 2020-02-03 23:06 | disposition home or self-care (01) | LOC: HBO 00:05 | DX: L97.818 Non-pressure chronic ulcer of other part of right lower leg with other specified severity (principal); L97.512 Non-pressure chronic ulcer of other part of right foot with fat layer exposed | CPT/HCPCS: G0277 ==

== ENCOUNTER 2020-02-04 00:32 | Day surgery (SDC) | payer MEDICARE | END 2020-02-04 23:15 | disposition home or self-care (01) | LOC: HBO 00:32 | DX: L97.512 Non-pressure chronic ulcer of other part of right foot with fat layer exposed (principal); L97.818 Non-pressure chronic ulcer of other part of right lower leg with other specified severity; R60.0 Localized edema | CPT/HCPCS: G0277 ==

== ENCOUNTER 2020-02-05 00:34 | Day surgery (SDC) | payer MEDICARE | END 2020-02-05 22:39 | disposition home or self-care (01) | LOC: HBO 00:34 | DX: L97.818 Non-pressure chronic ulcer of other part of right lower leg with other specified severity (principal); L97.512 Non-pressure chronic ulcer of other part of right foot with fat layer exposed | CPT/HCPCS: G0277 ==

== ENCOUNTER 2020-02-06 00:38 | Day surgery (SDC) | payer MEDICARE | END 2020-02-06 23:45 | disposition home or self-care (01) | LOC: HBO 00:38 | DX: L97.818 Non-pressure chronic ulcer of other part of right lower leg with other specified severity (principal); L97.512 Non-pressure chronic ulcer of other part of right foot with fat layer exposed | CPT/HCPCS: G0277 ==

== ENCOUNTER 2020-02-09 00:15 | Day surgery (SDC) | payer MEDICARE | END 2020-02-09 22:40 | disposition home or self-care (01) | LOC: WOUND 00:15 | DX: L97.818 Non-pressure chronic ulcer of other part of right lower leg with other specified severity (principal); L97.512 Non-pressure chronic ulcer of other part of right foot with fat layer exposed; I11.0 Hypertensive heart disease with heart failure; I50.32 Chronic diastolic (congestive) heart failure; G47.33 Obstructive sleep apnea (adult) (pediatric); Z79.899 Other long term (current) drug therapy; Z79.01 Long term (current) use of anticoagulants ==

== ENCOUNTER 2020-02-09 00:22 | Day surgery (SDC) | payer MEDICARE | END 2020-02-09 22:42 | disposition home or self-care (01) | LOC: HBO 00:22 | DX: L97.818 Non-pressure chronic ulcer of other part of right lower leg with other specified severity (principal); L97.512 Non-pressure chronic ulcer of other part of right foot with fat layer exposed | CPT/HCPCS: G0277 ==

== ENCOUNTER 2020-02-10 00:20 | Day surgery (SDC) | payer MEDICARE | END 2020-02-10 22:38 | disposition home or self-care (01) | LOC: HBO 00:20 | DX: L97.818 Non-pressure chronic ulcer of other part of right lower leg with other specified severity (principal); L97.512 Non-pressure chronic ulcer of other part of right foot with fat layer exposed | CPT/HCPCS: G0277 ==

== ENCOUNTER 2020-02-11 00:10 | Day surgery (SDC) | payer MEDICARE | END 2020-02-11 23:02 | disposition home or self-care (01) | LOC: HBO 00:10 | DX: L97.818 Non-pressure chronic ulcer of other part of right lower leg with other specified severity (principal); L97.512 Non-pressure chronic ulcer of other part of right foot with fat layer exposed; R60.0 Localized edema | CPT/HCPCS: 74018; G0277 ==

== ENCOUNTER 2020-02-12 00:08 | Day surgery (SDC) | payer MEDICARE | END 2020-02-12 23:13 | disposition home or self-care (01) | LOC: HBO 00:08 | DX: L97.818 Non-pressure chronic ulcer of other part of right lower leg with other specified severity (principal); L97.512 Non-pressure chronic ulcer of other part of right foot with fat layer exposed | CPT/HCPCS: G0277 ==

== ENCOUNTER 2020-02-13 01:31 | Day surgery (SDC) | payer MEDICARE | END 2020-02-13 22:44 | disposition home or self-care (01) | LOC: HBO 01:31 | DX: L97.818 Non-pressure chronic ulcer of other part of right lower leg with other specified severity (principal); L97.512 Non-pressure chronic ulcer of other part of right foot with fat layer exposed | CPT/HCPCS: G0277 ==

== ENCOUNTER 2020-02-16 00:14 | Day surgery (SDC) | payer MEDICARE | END 2020-02-16 22:41 | disposition home or self-care (01) | LOC: HBO 00:14 | DX: L97.818 Non-pressure chronic ulcer of other part of right lower leg with other specified severity (principal); L97.512 Non-pressure chronic ulcer of other part of right foot with fat layer exposed | CPT/HCPCS: G0277 ==

== ENCOUNTER 2020-02-16 00:28 | Day surgery (SDC) | payer MEDICARE | END 2020-02-16 22:41 | disposition home or self-care (01) | LOC: WOUND 00:28 | DX: L97.818 Non-pressure chronic ulcer of other part of right lower leg with other specified severity (principal); L97.512 Non-pressure chronic ulcer of other part of right foot with fat layer exposed; I11.0 Hypertensive heart disease with heart failure; I50.32 Chronic diastolic (congestive) heart failure; F17.200 Nicotine dependence, unspecified, uncomplicated; G47.33 Obstructive sleep apnea (adult) (pediatric); Z79.899 Other long term (current) drug therapy; Z79.01 Long term (current) use of anticoagulants ==

== ENCOUNTER 2020-02-17 00:16 | Day surgery (SDC) | payer MEDICARE | END 2020-02-17 23:14 | disposition home or self-care (01) | LOC: HBO 00:16 | DX: L97.818 Non-pressure chronic ulcer of other part of right lower leg with other specified severity (principal); L97.512 Non-pressure chronic ulcer of other part of right foot with fat layer exposed | CPT/HCPCS: G0277 ==

== ENCOUNTER 2020-02-23 00:07 | Day surgery (SDC) | payer MEDICARE | END 2020-02-23 22:46 | disposition home or self-care (01) | LOC: HBO 00:07 | DX: L97.818 Non-pressure chronic ulcer of other part of right lower leg with other specified severity (principal); L97.512 Non-pressure chronic ulcer of other part of right foot with fat layer exposed; I11.0 Hypertensive heart disease with heart failure; I50.32 Chronic diastolic (congestive) heart failure; Z79.899 Other long term (current) drug therapy; Z79.01 Long term (current) use of anticoagulants | CPT/HCPCS: G0277 ==

== ENCOUNTER 2020-03-02 00:14 | Day surgery (SDC) | payer MEDICARE | END 2020-03-02 22:40 | disposition home or self-care (01) | LOC: HBO 00:14 | DX: L97.818 Non-pressure chronic ulcer of other part of right lower leg with other specified severity (principal); L97.512 Non-pressure chronic ulcer of other part of right foot with fat layer exposed; M86.8X7 Other osteomyelitis, ankle and foot | CPT/HCPCS: G0277 ==

== ENCOUNTER 2020-03-22 00:46 | Day surgery (SDC) | payer MEDICARE | END 2020-03-22 22:57 | disposition home or self-care (01) | LOC: WOUND 00:46 | DX: M86.671 Other chronic osteomyelitis, right ankle and foot (principal); L97.818 Non-pressure chronic ulcer of other part of right lower leg with other specified severity; R60.0 Localized edema; I11.0 Hypertensive heart disease with heart failure; I50.32 Chronic diastolic (congestive) heart failure; I48.91 Unspecified atrial fibrillation; G47.33 Obstructive sleep apnea (adult) (pediatric); F17.210 Nicotine dependence, cigarettes, uncomplicated ==

== ENCOUNTER 2020-04-19 00:24 | Day surgery (SDC) | payer MEDICARE | END 2020-04-19 22:58 | disposition home or self-care (01) | LOC: WOUND 00:24 | DX: M86.671 Other chronic osteomyelitis, right ankle and foot (principal); L97.818 Non-pressure chronic ulcer of other part of right lower leg with other specified severity; I11.0 Hypertensive heart disease with heart failure; I50.22 Chronic systolic (congestive) heart failure; I48.91 Unspecified atrial fibrillation; G47.33 Obstructive sleep apnea (adult) (pediatric) | CPT/HCPCS: G0463 ==

== ENCOUNTER 2020-04-26 00:22 | Day surgery (SDC) | payer MEDICARE | END 2020-04-26 22:43 | disposition home or self-care (01) | LOC: WOUND 00:22 | DX: M86.671 Other chronic osteomyelitis, right ankle and foot (principal); L97.818 Non-pressure chronic ulcer of other part of right lower leg with other specified severity; I11.0 Hypertensive heart disease with heart failure; I50.32 Chronic diastolic (congestive) heart failure; G47.33 Obstructive sleep apnea (adult) (pediatric); F17.200 Nicotine dependence, unspecified, uncomplicated; Z79.899 Other long term (current) drug therapy; Z79.01 Long term (current) use of anticoagulants | CPT/HCPCS: G0463 ==

== ENCOUNTER 2020-05-06 00:19 | Day surgery (SDC) | payer MEDICARE | END 2020-05-06 22:38 | disposition home or self-care (01) | LOC: WOUND 00:19 | DX: Z48.00 Encounter for change or removal of nonsurgical wound dressing (principal); S80.921A Unspecified superficial injury of right lower leg, initial encounter | CPT/HCPCS: G0463 ==

== ENCOUNTER 2022-02-01 17:52 | Inpatient (IN) | payer MEDICARE ==
[~2022-02-01] VITALS: Ht 180.3 cm; Wt 123.3 kg
[2022-02-01 18:41] LABS: BASOPHILS ABSOLUTE AUTO 0.02 K/mm3 (0.00-0.23); BASOPHILS PERCENT AUTO 1 % (0-2); EOSINOPHILS ABSOLUTE AUTO 0.04 K/mm3 (0.00-0.68); EOSINOPHILS PERCENT AUTO 1 % (0-6); Hemoglobin 8.4 g/dL (13.5-17.5); IMMATURE GRAN ABSOLUTE AUTO 0.03 K/mm3 (0.00-0.10); IMMATURE GRAN PERCENT AUTO 1 % (0-1); LYMPHOCYTES ABSOLUTE AUTO 0.53 K/mm3 (0.84-5.20); LYMPHOCYTES PERCENT AUTO 12 % (21-46); MONOCYTES ABSOLUTE AUTO 0.72 K/mm3 (0.16-1.47); MONOCYTES PERCENT AUTO 16 % (4-13); Mean Corpuscular HGB 35.6 pg (26.0-34.0); Mean Corpuscular Volume 102 fL (80-100); Mean Platelet Volume 9.1 fL (9.1-12.4); NEUTROPHILS ABSOLUTE AUTO 3.08 K/mm3 (1.96-9.15); NEUTROPHILS PERCENT AUTO 70 % (41-73); Platelet Count 102 K/mm3 (150-400); RDW Coefficient Variation 13.2 % (11.7-14.2); RDW Standard Deviation 49.3 fL (35.1-46.3); Red Blood Cell Count 2.36 M/mm3 (4.30-5.90); White Blood Cell Count 4.42 K/mm3 (4.00-11.30)
[2022-02-01 18:42] LABS: Source, Urine Straight Cath
[2022-02-01 18:46] LABS: Appearance, Urine Clear (Clear); Blood, Urine 1+ (Neg); Color, Urine Amber (P-Yellow); Glucose Qualitative, Urine Neg (Neg); Ketones, Urine 1+ (Neg); Leukocyte Esterase, Urine 1+ (Neg); Nitrite, Urine Neg (Neg); Protein, Urine 2+ (Neg); Urobilinogen, Urine 2+ (Normal)
[2022-02-01 18:58] LABS: Alanine Aminotransfer (ALT/SGP 25 U/L (12-78); Albumin, Blood 2.5 g/dL (3.4-5.0); Albumin/Globulin Ratio 0.7 (0.8-1.8); Alk Phos 99 U/L (50-136); Anion Gap 9 mmol/L (6-16); Aspartate Aminotrans (AST/SGOT 27 U/L (12-37); Bilirubin, Total 1.2 mg/dL (0.1-1.0); Blood Urea Nitrogen 25 mg/dL (8-24); Bun/Creatinine Ratio 15.5 (12.0-20.0); CO2, Blood 26 mmol/L (21-32); Calcium, Blood 8.3 mg/dL (8.5-10.1); Chloride, Blood 86 mmol/L (98-108); Creatinine, Blood 1.61 mg/dL (0.60-1.20); Ethanol (Alcohol), Blood, Med <3 mg/dL; Globulin, Blood 3.5 g/dL (2.2-4.0); Glomerular Filtration Rate 43 (60-); Glucose, Blood 121 mg/dL (70-99); Potassium, Blood 4.2 mmol/L (3.5-5.5); Sodium, Blood 121 mmol/L (136-145)
[2022-02-01] MEDS ORDERED: Carvedilol12.5 MG PO ×2 (19:00)
[2022-02-01 19:01] LABS: Bilirubin, Urine 1+ (Neg)
[2022-02-01] MEDS ORDERED: FURO40 PO ×2 (19:01)
[2022-02-01] MEDS ORDERED: AMOX-CLAV 875-1 EAC5 PO ×2 (19:01)
[2022-02-01 19:03] LABS: Hyaline Casts 0-2 /lpf (0-2); Squamous Epithelial Cells Few /hpf (Few); Transitional Epithelial Cells Few /hpf (0-Rare)
[2022-02-01 19:04] LABS: Bacteria Mod /hpf
[2022-02-01 19:31] LABS: Influenza A, PCR NEGATIVE (NEGATIVE); Influenza B, PCR NEGATIVE (NEGATIVE); Resp Syncytial Virus, PCR NEGATIVE (NEGATIVE); SARS-Cov-2 (COVID-19) PCR, MMC NEGATIVE (NEGATIVE)
[2022-02-01 22:45] LABS: Bun/Creatinine Ratio 14.1 (12.0-20.0); Calcium, Blood 7.9 mg/dL (8.5-10.1); Creatinine, Blood 1.7 mg/dL (0.60-1.20); Potassium, Blood 4.2 mmol/L (3.5-5.5)
--- NOTE | 2022-02-02 04:40 | NUR ---
PT ARRIVED ON THE FLOOR AT 2355. PT FULL ASSIST WITH SLIDE SHEET. AT BEDSIDE ABLE TO ASSIST WITH ADMISSION. PT IS HARD OF HEARING AND IS ALERT AND ORIENTED IF HE CAN HEAR THE QUESTION. PT WEARS BIPAP AT NIGHT WITH 2.5L OF OXYGEN. RT SET UP IN ROOM WITH PULSE OX. PER PT IS CONTINENT HOWEVER THEY DO NOT HAVE A BIG ENOUGH BATHROOM FOR THE PATIENT TO GET INTO SAFELY WITH THE WALKER SO THE HAS BEEN CHANGING DEPENDS WHEN NEEDED. REPORTS PATIENT DRINKS 1/4 OF HARD LIQUOR DAILY AND WENT INTO DETOX LAST TIME HE WAS IN THE HOSPITAL. PT HAS NOT HAD ANY ALCOHOL SINCE SUNDAY. BLOOD PRESSURE WNL, HR IN THE LOW 40'S AND IRREGULAR WHILE PATIENT SLEEPING.
[2022-02-02 04:45] LABS: BASOPHILS ABSOLUTE AUTO 0.02 K/mm3 (0.00-0.23); BASOPHILS PERCENT AUTO 1 % (0-2); EOSINOPHILS ABSOLUTE AUTO 0.12 K/mm3 (0.00-0.68); EOSINOPHILS PERCENT AUTO 3 % (0-6); Hematocrit 26.2 % (37.0-53.0); Hemoglobin 8.8 g/dL (13.5-17.5); IMMATURE GRAN ABSOLUTE AUTO 0.02 K/mm3 (0.00-0.10); IMMATURE GRAN PERCENT AUTO 1 % (0-1); LYMPHOCYTES ABSOLUTE AUTO 1.14 K/mm3 (0.84-5.20); LYMPHOCYTES PERCENT AUTO 27 % (21-46); MONOCYTES ABSOLUTE AUTO 0.83 K/mm3 (0.16-1.47); MONOCYTES PERCENT AUTO 20 % (4-13); Mean Corpuscular HGB 34.9 pg (26.0-34.0); Mean Corpuscular HGB Conc 33.6 g/dL (31.5-36.5); Mean Corpuscular Volume 104 fL (80-100); Mean Platelet Volume 9.2 fL (9.1-12.4); NEUTROPHILS ABSOLUTE AUTO 2.09 K/mm3 (1.96-9.15); NEUTROPHILS PERCENT AUTO 50 % (41-73); Platelet Count 94 K/mm3 (150-400); RDW Coefficient Variation 13.2 % (11.7-14.2); RDW Standard Deviation 49.7 fL (35.1-46.3); Red Blood Cell Count 2.52 M/mm3 (4.30-5.90); White Blood Cell Count 4.22 K/mm3 (4.00-11.30)
[2022-02-02 05:06] LABS: Albumin, Blood 2.6 g/dL (3.4-5.0); Albumin/Globulin Ratio 0.7 (0.8-1.8); Bilirubin, Total 1.1 mg/dL (0.1-1.0); Bun/Creatinine Ratio 15.3 (12.0-20.0); Calcium, Blood 8.2 mg/dL (8.5-10.1); Creatinine, Blood 1.63 mg/dL (0.60-1.20); Globulin, Blood 3.5 g/dL (2.2-4.0); Potassium, Blood 3.9 mmol/L (3.5-5.5); Total Protein, Blood 6.1 g/dL (6.4-8.2)
--- NOTE | 2022-02-02 11:38 | NUR ---
DOTTIE/ TRANSFER TO PCU- PT A/O X2-3. SLOW TO RESPOND AND FORGETFUL THIS AM. COMPUTER AIDED DRAFTER CALLED THIS AM AND REPORTED TELE AFIB AT 33 THEN UP TO 41. BOTH DR RICHARDS AND DR LESTER NOTIIFIED. PT SLEEPING AT THIS TIME, AWAKES EASILY AND REMAINED ASYMPTOMATIC. NOTIFIED AND REQUEST TO MARC TO PCU, TELE AFIB AT 66 AT THAT TIME. PT WITH EDEMA BLE, THIGHS AND INTO ABD/SIDES. UPON CHANGING BRIEF PT NOTED TO HAVE DISCHARGE AT TIP OF PENIS, SWELLING AND YEAST. DR RICHARDS NOTIFIED AND PENIS SWABBED AND SENT TO LAB AND MICONAZOLE ORDERED. REPORT CALLED TO EFRAIN IN PCU, PT TRANSFERED TO PCU 1 AT 1110 SPOUSE AT BEDSIDE.
--- NOTE | 2022-02-02 12:37 | NUR ---
PCU ARRIVAL PT BROUGHT TO PCU-01 BY BED FROM MEDICAL FLOOR @ APPROX 1115. PT A&O X4, ANSWERING Q's APPROPRIATELY W/ PT REPORT OF PT PREVIOUSLY CONFUSED, NOW MUCH IMPROVED. PT HOLY CROSS, REQUIRING STAFF TO SPEAK SLOWLY & LOUDLY, CLOSE TO PT. PT VSS. SPO2 > 92% ON RA W/ HOME BIPAP AT BEDSIDE. MONITOR SHOWING AFIB, HR 50s-60s.
--- NOTE | 2022-02-02 17:21 | NUR ---
MEDICAL STATUS / END OF SHIFT NOTE PT CONTINUES TO BE A&O X4. VSS. SPO2 > 92% ON RA WHILE AWAKE, WEARING HOME BIPAP WHILE SLEEPING. MONITOR SHOWING AFIB, HR 50s-70s. BP STABLE, PO MIDODRINE HELD. MD LESTER TO RM, W/ ORDERS FOR PT TO BE MEDICAL W/ TELE STATUS.
--- NOTE | 2022-02-03 03:22 | NUR ---
LAB LAB CALLED W/ BLOOD CULTURES: GRAM+ COCCI IN CLUSTERS. CALL PLACED TO MD ROB NOTIFYING OF RESULT AND PT'S CURRENT ORDER FOR AUGMENTIN. MD ROB W/ NO FURTHER ORDERS.
[2022-02-03 04:17] LABS: BASOPHILS ABSOLUTE AUTO 0.02 K/mm3 (0.00-0.23); BASOPHILS PERCENT AUTO 1 % (0-2); EOSINOPHILS ABSOLUTE AUTO 0.12 K/mm3 (0.00-0.68); EOSINOPHILS PERCENT AUTO 3 % (0-6); Hematocrit 24.7 % (37.0-53.0); Hemoglobin 8.4 g/dL (13.5-17.5); IMMATURE GRAN ABSOLUTE AUTO 0.02 K/mm3 (0.00-0.10); IMMATURE GRAN PERCENT AUTO 1 % (0-1); LYMPHOCYTES ABSOLUTE AUTO 0.71 K/mm3 (0.84-5.20); LYMPHOCYTES PERCENT AUTO 20 % (21-46); MONOCYTES ABSOLUTE AUTO 0.46 K/mm3 (0.16-1.47); MONOCYTES PERCENT AUTO 13 % (4-13); Mean Corpuscular HGB 35.1 pg (26.0-34.0); Mean Corpuscular Volume 103 fL (80-100); Mean Platelet Volume 9.3 fL (9.1-12.4); NEUTROPHILS ABSOLUTE AUTO 2.16 K/mm3 (1.96-9.15); NEUTROPHILS PERCENT AUTO 62 % (41-73); Platelet Count 90 K/mm3 (150-400); Red Blood Cell Count 2.39 M/mm3 (4.30-5.90); White Blood Cell Count 3.49 K/mm3 (4.00-11.30)
[2022-02-03 04:36] LABS: Albumin, Blood 2.6 g/dL (3.4-5.0); Albumin/Globulin Ratio 0.8 (0.8-1.8); Bilirubin, Total 1.4 mg/dL (0.1-1.0); Bun/Creatinine Ratio 17.2 (12.0-20.0); Calcium, Blood 8.4 mg/dL (8.5-10.1); Creatinine, Blood 1.45 mg/dL (0.60-1.20); Globulin, Blood 3.4 g/dL (2.2-4.0); Potassium, Blood 3.9 mmol/L (3.5-5.5)
--- NOTE | 2022-02-03 06:15 | NUR ---
SHIFT SUMMARY NO ACUTE CHANGES THIS SHIFT. PT ALERT, FOLLOWS COMMANDS, NOT IMPLUSIVE. SP02>92% ON RA OR CPAP WHILE SLEEPING 13 CM 2L BLEED IN. TELEMETRY SHOWS AFIB, HR MOSTLY 60'S. BP STABLE. C/O OF ACHING NECK PAIN, MEDICATED W/ TYLENOL W/ RELIEF. PT DID NOT VOID THIS SHIFT. DID BLADDER SCAN WHICH SHOWED 252. HIGHEST CIWA THIS SHIFT WAS 3 D/T HEADACHE, 0 ONCE TYLENOL GIVEN. PT SLEPT MOST OF NIGHT. REPOSITIONED BY STAFF. CALL LIGHT IN REACH.
--- NOTE | 2022-02-03 07:10 | NUR ---
AM ASSESSMENT: Pt laying in bed with cpap in place. States that he was incontinent of urine. Pt cleaned and changed. Groin very red and inflammed, powder placed. LS diminished. HR irreg. Pulses palp. R denny has wound that is clean, mepilex in place. Pt denies pain at this time. VSS. Call light in reach. Will continue to monitor.
--- NOTE | 2022-02-03 14:46 | NUR ---
UPDATE: Pt IV infiltrated while vanco running. Will place ICE per recommendation from pharmacy. New IV placed. Report given to MICHELLE Yip and care transfered. Stable at this time.
--- NOTE | 2022-02-03 16:04 | NUR ---
Pt is lying in bed, states that he has no needs nor any concerns at this time. His is also at the bedside, and was asking if the home health would be ordered by the attending doctor here at the hospital. She states that she would like to request [facility], as that is who they have used in the past. spoke with MICHELLE Ramirezmanager recovery to notify her of this.
--- NOTE | 2022-02-03 18:39 | NUR ---
Pt alert, oriented and pleasantly conversant. Incontinent of urine and stool today. States that he was up in the chair today when he was working with the therapist. His is at the bedside. Blood pressures this afternoon stable; continuing to receive midodrine, although the noon dose was held for a higher systolic.
--- NOTE | 2022-02-03 21:03 | NUR ---
ASSUMED PT CARE FROM LANCE MARTINEZ ON DAY SHIFT. PT HAS BEEN A&OX4 FOR ME. MEDICATED FOR PAIN IN NECK, SEE MAR. PT DENIES ANY OTHER COMPLAINS OF DISCOMFORT AT THIS TIME. TAKES EVENING MEDICAITONS WHOLE WITH WATER, NO DIFFICULTY SWALLOWING, NO COUGH NOTED AFTER TAKING THIN LIQUIDS. VSS AT THIS TIME. ARM BILATERALLY ELEVATEDC ON PILLOWS TO HELP WITH SWELLING. REPOSITIONED FOR COMFORT. NO INCONTINENCE AT THIS TIME. CALL LIGHT IN REACH.
[2022-02-04 04:04] LABS: BASOPHILS ABSOLUTE AUTO 0.02 K/mm3 (0.00-0.23); BASOPHILS PERCENT AUTO 1 % (0-2); EOSINOPHILS ABSOLUTE AUTO 0.19 K/mm3 (0.00-0.68); EOSINOPHILS PERCENT AUTO 5 % (0-6); Hematocrit 23.9 % (37.0-53.0); Hemoglobin 8.2 g/dL (13.5-17.5); IMMATURE GRAN ABSOLUTE AUTO 0.02 K/mm3 (0.00-0.10); IMMATURE GRAN PERCENT AUTO 1 % (0-1); LYMPHOCYTES ABSOLUTE AUTO 0.77 K/mm3 (0.84-5.20); LYMPHOCYTES PERCENT AUTO 21 % (21-46); MONOCYTES ABSOLUTE AUTO 0.45 K/mm3 (0.16-1.47); MONOCYTES PERCENT AUTO 12 % (4-13); Mean Corpuscular HGB 35.8 pg (26.0-34.0); Mean Corpuscular HGB Conc 34.3 g/dL (31.5-36.5); Mean Corpuscular Volume 104 fL (80-100); Mean Platelet Volume 9.2 fL (9.1-12.4); NEUTROPHILS ABSOLUTE AUTO 2.23 K/mm3 (1.96-9.15); NEUTROPHILS PERCENT AUTO 61 % (41-73); Platelet Count 89 K/mm3 (150-400); RDW Coefficient Variation 13.2 % (11.7-14.2); RDW Standard Deviation 50.4 fL (35.1-46.3); Red Blood Cell Count 2.29 M/mm3 (4.30-5.90); White Blood Cell Count 3.68 K/mm3 (4.00-11.30)
[2022-02-04 04:21] LABS: Albumin, Blood 2.3 g/dL (3.4-5.0); Albumin/Globulin Ratio 0.7 (0.8-1.8); Bilirubin, Total 1.1 mg/dL (0.1-1.0); Bun/Creatinine Ratio 17.2 (12.0-20.0); Calcium, Blood 8.1 mg/dL (8.5-10.1); Creatinine, Blood 1.34 mg/dL (0.60-1.20); Globulin, Blood 3.4 g/dL (2.2-4.0); Total Protein, Blood 5.7 g/dL (6.4-8.2)
--- NOTE | 2022-02-04 06:32 | NUR ---
SHIFT SUMMARY: PT HAS BEEN RESITING IN BED WITHOUT COMPLAINTS. HR HAS BEEN BRADYCARDIC IN A-FIB RHYTHM, LOWEST NOTED RATE AT 48, MAINTAINING IN 50'S. PT HAD EXTRA LARGE INCONTINENT VOID. GOWN, FLOYD PAD, AND BRIEF CHANGED. PT ABLE TO ROLL IN BED WITH ASSISTANCE. WARM BLANKETS PROVIDED FOR COMFORT. CALL LIGHT IN REACH.
--- NOTE | 2022-02-04 16:54 | NUR ---
SHIFT SUMMARY PT HAS BEEN RESTING IN ROOM. PT WILL PLACE CPAP BY THEMSELVES WHEN RESTING. PT WORKED WITH PHYSICAL THERAPY AND WAS UP IN ROOM. PT STATED THAT PHYSICAL THERAPY GIVES THEM ENERGY AND HELPS THEM MAINTAIN A HOPEFUL OUTLOOK. SBP HAS BEEN >130 SINCE AM DOSE OF MIDODRINE. PT C/O MILD PAIN TO THE NECK, TREATED PER EMAR AND REPOSITIONING. THIS RN HAS ENCOURAGED PO FLUID INTAKE AT ALL ENCOUNTERS, PT STATES THAT THEY "DON'T USUALLY DRINK WATER." THIS RN HAS ATTEMPTED TO APPEAL TO ALL PT REQUESTS REGARDING WATER INTAKE, i.e. NO ICE, NOT COLD, SMALLER CUPS. PT HAS BEEN COOPERATIVE WITH ALL CARES AND CALLED APPROPRIATELY FOR ASSISTANCE.
[2022-02-05 04:01] LABS: BASOPHILS ABSOLUTE AUTO 0.02 K/mm3 (0.00-0.23); BASOPHILS PERCENT AUTO 1 % (0-2); EOSINOPHILS ABSOLUTE AUTO 0.14 K/mm3 (0.00-0.68); EOSINOPHILS PERCENT AUTO 5 % (0-6); Hematocrit 23.9 % (37.0-53.0); Hemoglobin 8.1 g/dL (13.5-17.5); IMMATURE GRAN ABSOLUTE AUTO 0.02 K/mm3 (0.00-0.10); IMMATURE GRAN PERCENT AUTO 1 % (0-1); LYMPHOCYTES ABSOLUTE AUTO 0.89 K/mm3 (0.84-5.20); LYMPHOCYTES PERCENT AUTO 29 % (21-46); MONOCYTES ABSOLUTE AUTO 0.45 K/mm3 (0.16-1.47); MONOCYTES PERCENT AUTO 15 % (4-13); Mean Corpuscular HGB 35.4 pg (26.0-34.0); Mean Corpuscular HGB Conc 33.9 g/dL (31.5-36.5); Mean Corpuscular Volume 104 fL (80-100); Mean Platelet Volume 9.5 fL (9.1-12.4); NEUTROPHILS ABSOLUTE AUTO 1.57 K/mm3 (1.96-9.15); NEUTROPHILS PERCENT AUTO 51 % (41-73); Platelet Count 93 K/mm3 (150-400); RDW Coefficient Variation 13.3 % (11.7-14.2); RDW Standard Deviation 50.8 fL (35.1-46.3); Red Blood Cell Count 2.29 M/mm3 (4.30-5.90); White Blood Cell Count 3.09 K/mm3 (4.00-11.30)
[2022-02-05 04:24] LABS: Albumin, Blood 2.3 g/dL (3.4-5.0); Albumin/Globulin Ratio 0.7 (0.8-1.8); Bilirubin, Total 1.1 mg/dL (0.1-1.0); Bun/Creatinine Ratio 17.3 (12.0-20.0); Calcium, Blood 8.2 mg/dL (8.5-10.1); Creatinine, Blood 1.33 mg/dL (0.60-1.20); Globulin, Blood 3.3 g/dL (2.2-4.0); Potassium, Blood 4.4 mmol/L (3.5-5.5); Total Protein, Blood 5.6 g/dL (6.4-8.2)
--- NOTE | 2022-02-05 06:57 | NUR ---
SHIFT SUMMARY: PT HR HAS REMAINED IN THE 50-60'S THROUGHOUT NIGHT. OTHER VITAL SIGNS HAVE BEEN STABLE. PT HAD TWO INCONTINENT VOIDS AND ONE LARGE INCONTINENT STOOL. PT HAS SLEPT COMFORTABLY THROUGHOUT MAJORITY OF SHIFT. ATTEMPTED TO KEEP ARMS ELEVATED ABOVE HEART TO HELP WITH SWELLING. TOLERATED CPAP THROUGHOUT ALL OF NIGHT. CALL LIGHT IN REACH.
[2022-02-05] MEDS ORDERED: ANTIFUNGAL POWD71 GM TOP ×2 (11:41)
[2022-02-05] MEDS ORDERED: MIDO5 PO ×2 (11:45)
[2022-02-05] MEDS ORDERED: VISBIOME 112.51 EACH PO ×2 (11:47)
--- NOTE | 2022-02-05 14:30 | NUR ---
DISCHARGE SUMMARY PT WAS TRANSPORTED BY WHEELCHAIR TO PERSONAL VEHICLE. DISCHARGE TEACHING WAS GIVEN TO PT AND SPOUSE. PERSONAL BELONGINGS AND DISCHARGE INSTRUCTIONS WERE IN THE POSSESSION OF THE PT'S SPOUSE AT THE TIME OF DISCAHRGE.
== END 2022-02-05 14:11 | disposition home health service (06) | DRG 314 ==
LOC: ER 17:52 → MEDS 21:25 → PCU 02-02 11:10
PROVIDERS: Emergency Medicine; Family Medicine; ADMIT Internal Medicine
PROC: 5A09457 Assistance with Respiratory Ventilation, 24-96 Consecutive Hours, Continuous Positive Airway Pressure (ICD-10-PCS; principal; 2022-02-02)
PROC: HZ2ZZZZ Detoxification Services for Substance Abuse Treatment (ICD-10-PCS; 2022-02-02)
PROC: 3E03329 Introduction of Other Anti-infective into Peripheral Vein, Percutaneous Approach (ICD-10-PCS; 2022-02-03)
DX: I95.89 Other hypotension (principal); G92.8 Other toxic encephalopathy; E87.1 Hypo-osmolality and hyponatremia; N17.9 Acute kidney failure, unspecified; I48.20 Chronic atrial fibrillation, unspecified; M86.60 Other chronic osteomyelitis, unspecified site; J98.11 Atelectasis; I50.32 Chronic diastolic (congestive) heart failure; Z66 Do not resuscitate; Z20.822 Contact with and (suspected) exposure to COVID-19; N18.30 Chronic kidney disease, stage 3 unspecified; R36.9 Urethral discharge, unspecified; R00.1 Bradycardia, unspecified; D64.9 Anemia, unspecified; Z68.29 Body mass index [BMI] 29.0-29.9, adult; B37.2 Candidiasis of skin and nail; G47.33 Obstructive sleep apnea (adult) (pediatric); E66.01 Morbid (severe) obesity due to excess calories; E86.0 Dehydration; E86.1 Hypovolemia; K76.0 Fatty (change of) liver, not elsewhere classified; K80.20 Calculus of gallbladder without cholecystitis without obstruction; Z79.01 Long term (current) use of anticoagulants; Z79.899 Other long term (current) drug therapy; Z98.890 Other specified postprocedural states; Z90.89 Acquired absence of other organs; Z88.2 Allergy status to sulfonamides
CPT/HCPCS: 0241U; 36415; 51701; 71045; 76705; 80048; 80053; 81001; 83605; 83735; 83880; 84484; 85025; 85651; 86140; 87040; 87070; 87086; 87205; 93005; 93010; 93306; 94660; 94762; 97110; 97116; 97162; 97166; 97530; 99285-25; A9270; G0480; J3370; J3411; J3475; J7030; J7040; J7060

== ENCOUNTER → 2022-02-23 | Outpatient (CLI) | payer MEDICARE ==
[~2022-02-23] MED LIST changes: +AMOX-CLAV 875-1 EAC5 PO; +ANTIFUNGAL POWD71 GM TOP; +Carvedilol12.5 MG PO; +VISBIOME 112.51 EACH PO
[2022-02-23 15:35] LABS: Hematocrit 28.7 % (37.0-53.0); Hemoglobin 9.5 g/dL (13.5-17.5); Mean Corpuscular HGB 34.1 pg (26.0-34.0); Mean Corpuscular HGB Conc 33.1 g/dL (31.5-36.5); Mean Corpuscular Volume 103 fL (80-100); Mean Platelet Volume 9.5 fL (9.1-12.4); Platelet Count 135 K/mm3 (150-400); RDW Coefficient Variation 13.6 % (11.7-14.2); RDW Standard Deviation 52.4 fL (35.1-46.3); Red Blood Cell Count 2.79 M/mm3 (4.30-5.90); White Blood Cell Count 2.89 K/mm3 (4.00-11.30)
[2022-02-23 15:38] LABS: Albumin, Blood 2.4 g/dL (3.4-5.0); Anion Gap 9 mmol/L (6-16); Blood Urea Nitrogen 7 mg/dL (8-24); Bun/Creatinine Ratio 7.8 (12.0-20.0); CO2, Blood 27 mmol/L (21-32); Calcium, Blood 8.1 mg/dL (8.5-10.1); Chloride, Blood 99 mmol/L (98-108); Glomerular Filtration Rate 87 (60-); Glucose, Blood 95 mg/dL (70-99); Phosphorus, Blood 2.5 mg/dL (2.5-4.9); Potassium, Blood 3.8 mmol/L (3.5-5.5); Sodium, Blood 135 mmol/L (136-145)
== END | disposition home or self-care (01) ==
LOC: LAB SHORT 13:45 → LAB 13:45
PROVIDERS: Internal Medicine
DX: E03.9 Hypothyroidism, unspecified (principal); I50.32 Chronic diastolic (congestive) heart failure; N18.30 Chronic kidney disease, stage 3 unspecified
CPT/HCPCS: 80069; 84443; 85027

== ENCOUNTER 2022-07-02 18:23 | Inpatient (IN) | payer MEDICARE ==
[~2022-07-02] VITALS: Ht 182.9 cm; Wt 102.7 kg
[2022-07-02 19:27] LABS: BASOPHILS ABSOLUTE AUTO 0.04 K/mm3 (0.00-0.23); BASOPHILS PERCENT AUTO 0 % (0-2); EOSINOPHILS ABSOLUTE AUTO 0.12 K/mm3 (0.00-0.68); EOSINOPHILS PERCENT AUTO 1 % (0-6); Hematocrit 25.7 % (37.0-53.0); Hemoglobin 8.8 g/dL (13.5-17.5); IMMATURE GRAN ABSOLUTE AUTO 0.04 K/mm3 (0.00-0.10); IMMATURE GRAN PERCENT AUTO 0 % (0-1); LYMPHOCYTES ABSOLUTE AUTO 1.28 K/mm3 (0.84-5.20); LYMPHOCYTES PERCENT AUTO 13 % (21-46); MONOCYTES ABSOLUTE AUTO 0.89 K/mm3 (0.16-1.47); MONOCYTES PERCENT AUTO 9 % (4-13); Mean Corpuscular HGB 34.4 pg (26.0-34.0); Mean Corpuscular HGB Conc 34.2 g/dL (31.5-36.5); Mean Corpuscular Volume 100 fL (80-100); NEUTROPHILS ABSOLUTE AUTO 7.36 K/mm3 (1.96-9.15); NEUTROPHILS PERCENT AUTO 76 % (41-73); Platelet Count 250 K/mm3 (150-400); RDW Standard Deviation 51.7 fL (35.1-46.3); Red Blood Cell Count 2.56 M/mm3 (4.30-5.90); White Blood Cell Count 9.73 K/mm3 (4.00-11.30)
[2022-07-02 19:42] LABS: Alanine Aminotransfer (ALT/SGP 17 U/L (12-78); Albumin, Blood 2.4 g/dL (3.4-5.0); Albumin/Globulin Ratio 0.5 (0.8-1.8); Alk Phos 103 U/L (50-136); Anion Gap 7 mmol/L (6-16); Aspartate Aminotrans (AST/SGOT 35 U/L (12-37); Bilirubin, Total 0.6 mg/dL (0.1-1.0); Blood Urea Nitrogen 18 mg/dL (8-24); Bun/Creatinine Ratio 12.5 (12.0-20.0); CO2, Blood 26 mmol/L (21-32); Calcium, Blood 8.4 mg/dL (8.5-10.1); Chloride, Blood 102 mmol/L (98-108); Creatinine, Blood 1.44 mg/dL (0.60-1.20); Ethanol (Alcohol), Blood, Med <3 mg/dL; Globulin, Blood 4.4 g/dL (2.2-4.0); Glomerular Filtration Rate 49 (60-); Glucose, Blood 113 mg/dL (70-99); Magnesium, Blood 1.3 mg/dL (1.6-2.4); Potassium, Blood 3.9 mmol/L (3.5-5.5); Sodium, Blood 135 mmol/L (136-145); Total Protein, Blood 6.8 g/dL (6.4-8.2)
[2022-07-02 19:55] LABS: Influenza A, PCR NEGATIVE (NEGATIVE); Influenza B, PCR NEGATIVE (NEGATIVE); Resp Syncytial Virus, PCR NEGATIVE (NEGATIVE); SARS-Cov-2 (COVID-19) PCR, MMC NEGATIVE (NEGATIVE)
[2022-07-02 20:29] LABS: Source, Urine Voided
[2022-07-02 21:04] LABS: Appearance, Urine Clear (Clear); Bilirubin, Urine Neg (Neg); Blood, Urine Neg (Neg); Color, Urine Yellow (P-Yellow); Glucose Qualitative, Urine Neg (Neg); Ketones, Urine Neg (Neg); Leukocyte Esterase, Urine Neg (Neg); Nitrite, Urine Neg (Neg); Protein, Urine Neg (Neg); Specific Gravity, Urine 1.015 (1.003-1.022); Urobilinogen, Urine NORM (Normal)
[2022-07-02] MEDS ORDERED: AMOCLA875 PO (22:11)
[2022-07-02] MEDS ORDERED: Tobrex5 ML BOTHEYES (22:11)
[2022-07-03 00:03] LABS: Bicarbonate Venous 22.8 mmol/L (24.0-30.0); pH Blood Venous 7.34 (7.34-7.37)
[2022-07-03 00:07] LABS: U Amphetamine Screen Not Detected; U Barbituate Screen Not Detected; U Benzodiazapine Screen Not Detected; U Buprenorphine Screen Not Detected; U Cannabinoids Screen Not Detected; U Cocaine Screen Not Detected; U Methadone Screen Not Detected; U Methamphetamine Screen Not Detected; U Opiates Screen Not Detected; U Oxycodone Screen Not Detected; U Phencyclidine Screen Not Detected; U Propoxyphene Screen Not Detected
[2022-07-03 00:19] LABS: International Normalized Ratio 1.19; Prothrombin Time Results 12.4 Sec (9.7-11.5)
[2022-07-03] MEDS ORDERED: EUTHYROX175 MC1 PO (04:30)
[2022-07-03] MEDS ORDERED: FUROSEMIDE40 MG PO (04:32)
[2022-07-03] MEDS ORDERED: AMOCLA875 PO (04:34)
[2022-07-03 05:31] LABS: BASOPHILS ABSOLUTE AUTO 0.03 K/mm3 (0.00-0.23); BASOPHILS PERCENT AUTO 1 % (0-2); EOSINOPHILS ABSOLUTE AUTO 0.15 K/mm3 (0.00-0.68); EOSINOPHILS PERCENT AUTO 3 % (0-6); Hematocrit 22.2 % (37.0-53.0); Hemoglobin 7.4 g/dL (13.5-17.5); IMMATURE GRAN ABSOLUTE AUTO 0.02 K/mm3 (0.00-0.10); IMMATURE GRAN PERCENT AUTO 0 % (0-1); LYMPHOCYTES ABSOLUTE AUTO 1.29 K/mm3 (0.84-5.20); LYMPHOCYTES PERCENT AUTO 21 % (21-46); MONOCYTES PERCENT AUTO 10 % (4-13); Mean Corpuscular HGB 33.8 pg (26.0-34.0); Mean Corpuscular HGB Conc 33.3 g/dL (31.5-36.5); Mean Corpuscular Volume 101 fL (80-100); Mean Platelet Volume 9.3 fL (9.1-12.4); NEUTROPHILS ABSOLUTE AUTO 3.93 K/mm3 (1.96-9.15); NEUTROPHILS PERCENT AUTO 65 % (41-73); Platelet Count 214 K/mm3 (150-400); RDW Coefficient Variation 14.2 % (11.7-14.2); RDW Standard Deviation 52.8 fL (35.1-46.3); Red Blood Cell Count 2.19 M/mm3 (4.30-5.90); White Blood Cell Count 6.02 K/mm3 (4.00-11.30)
[2022-07-03 06:30] LABS: Albumin, Blood 2.1 g/dL (3.4-5.0); Albumin/Globulin Ratio 0.6 (0.8-1.8); Bilirubin, Total 0.6 mg/dL (0.1-1.0); Bun/Creatinine Ratio 13.1 (12.0-20.0); Calcium, Blood 7.9 mg/dL (8.5-10.1); Creatinine, Blood 1.3 mg/dL (0.60-1.20); Globulin, Blood 3.7 g/dL (2.2-4.0); Potassium, Blood 3.8 mmol/L (3.5-5.5); Total Protein, Blood 5.8 g/dL (6.4-8.2)
--- NOTE | 2022-07-03 07:06 | NUR ---
A/OX1; SELF ONLY. REPEATEDLY ASKING, "WHERE IS THE FLOOR?" CALM AND COOPERATIVE; EX REFUSED TO WEAR HOSPITAL GOWN. DENIES PAIN (AND NO NON-VERBAL S/S PAIN PRESENT AT THIS TIME). 2X ASSIST FOR Q2 TURN/CHANGE. INC BM THIS SHIFT. TELE: A-FIB WITH HR IN 90's. CPAP IN PLACE. ABX PER ORDERS. IVF INFUSING. NPO CURRENTLY; ORAL CARE COMPLETED BY HAND TUFTER AND MOUTH SPONGES OFFERED FOR COMFOT. THIS RN UNABLE TO COMPLETE MED REC OR MED HX WITH PATIENT D/T CONFUSION - WILL NEED MED LIST FROM PATIENT'S IN THE MORNING. SLEEP PROMOTED. BED ALARM SET. CALL LIGHT IN REACH; ENCOURAGED TO MAKE NEEDS KNOWN.
[2022-07-03 10:37] LABS: Free Thyroxine 0.79 ng/dL (0.70-1.60); Thyroid Stimulating Hormone 35.3 uIU/mL (0.360-4.800)
--- NOTE | 2022-07-03 17:16 | NUR ---
Pt is a 81 year old man who lives with his of many years. His adult daughter is present at bedside at the visit today. She reports pt has been a heavy alcohol drinker for many years, when he suddenly quit "cold-turkey" about 3 weeks ago. It is unclear yet if he is suffering from alcohol related issues or not, but he remains confused. is unable to visit today due to her own procedure today. Pt has DNR status. Unsure of plans at this point. Hope to speak more with daughter tomorrow.
--- NOTE | 2022-07-03 19:49 | NUR ---
SHIFT SUMMARY PT REMAINS CONFUSED WITH MOMENTS OF CLARITY THAT DON'T LAST LONG. IS PLEASANT, COOPERATIVE AND PARTICIAPTES IN HIS CARE WHEN NEEDED. NEW PIV STARTED TODAY FOR HIS COMFORT. IS INCONTINENT OF URINE & STOOL. CHANGED AND CLEANED NEEDED. HIS APPETITE SEEMED TO COMMUNITY OUTREACH DIRECTOR THIS EVENING. WITH HELP WAS ABLE TO EAT SOME OF HIS DINNER. HIS DAUGHTER WAS AT BEDSIDE MAJORITY OF THE DAY.
[2022-07-04 06:23] LABS: BASOPHILS ABSOLUTE AUTO 0.03 K/mm3 (0.00-0.23); BASOPHILS PERCENT AUTO 1 % (0-2); EOSINOPHILS PERCENT AUTO 4 % (0-6); Hematocrit 23.5 % (37.0-53.0); Hemoglobin 7.6 g/dL (13.5-17.5); IMMATURE GRAN ABSOLUTE AUTO 0.03 K/mm3 (0.00-0.10); IMMATURE GRAN PERCENT AUTO 1 % (0-1); LYMPHOCYTES ABSOLUTE AUTO 1.17 K/mm3 (0.84-5.20); LYMPHOCYTES PERCENT AUTO 21 % (21-46); MONOCYTES ABSOLUTE AUTO 0.58 K/mm3 (0.16-1.47); MONOCYTES PERCENT AUTO 10 % (4-13); Mean Corpuscular HGB 33.2 pg (26.0-34.0); Mean Corpuscular HGB Conc 32.3 g/dL (31.5-36.5); Mean Corpuscular Volume 103 fL (80-100); Mean Platelet Volume 9.4 fL (9.1-12.4); NEUTROPHILS ABSOLUTE AUTO 3.63 K/mm3 (1.96-9.15); NEUTROPHILS PERCENT AUTO 65 % (41-73); Platelet Count 236 K/mm3 (150-400); RDW Standard Deviation 53.1 fL (35.1-46.3); Red Blood Cell Count 2.29 M/mm3 (4.30-5.90); White Blood Cell Count 5.64 K/mm3 (4.00-11.30)
[2022-07-04 06:44] LABS: Bun/Creatinine Ratio 9.8 (12.0-20.0); Calcium, Blood 8.1 mg/dL (8.5-10.1); Creatinine, Blood 1.32 mg/dL (0.60-1.20); Potassium, Blood 3.8 mmol/L (3.5-5.5)
--- NOTE | 2022-07-04 07:45 | NUR ---
SHIFT SUMMARY; PT WITH NO ACUTE MEDICAL CHANGES THROUGHOUT THE NIGHT. ANTIBOTICS WERE BEHIND SCHEDULE UPON BEGINNING OF SHIFT, CALLED PHARMACY TO SEE ABOUT RETIMING THE UNASYN DOSES, PHARMACIST ADVISED THAT THE 0000 DOSE BE HELD AND THE 0600 DOSE BE GIVEN JUST A LITTLE BIT EARLY TO GET BACK ON SCHEDULE. PT TOOK PILLS CRUSHED IN APPLESAUCE WITH NO DIFFICULLY. PT WAS PLEASANTLY CONFUSED THROUGHOUT THE SHIFT WITH TIMES OF LUCIDITY. PT CURRENTLY RESTING IN BED, THE BED IS IN THE LOWEST POSITION AND THE CALL LIGHT IS WITHIN REACH.
[2022-07-04 11:47] LABS: Luteinizing Hormone 12.9 mIU/ml (1.2-10.6); Prolactin 13.4 ng/mL (2.5-17.4); Triiodothyronine, Free 1.67 pg/mL (2.18-3.98)
--- NOTE | 2022-07-04 18:34 | NUR ---
SHIFT SUMMARY PT REMAINS CONFUSED THOUGH IS CLEARING AND HAS MOMENTS OF LUCIDITY THAT ARE LASTING LONGER. WAS ABLE TO WORK WITH OT & PT TODAY. SAT IN THE RECLINER CHAIR FOR LUNCH, WAS ABLE TO STAY UP FOR 1 1/2 HRS OR SO. IS NOW ABLE TO FEED HIMSELF. IS ALSO NOW AWARE OF WHEN HE NEEDS TO URINATE AND WHEN HE IS WET AND NEEDS CHANGING. IS NOW ALSO ABLE TO HELP WITH CHANGING BY LIFTING UP HIS HIPS AND ROLLING SIDE TO SIDE. SKIN IS INTACT, NO REDNESS OR OPEN AREAS NOTED.
--- NOTE | 2022-07-05 04:08 | NUR ---
SHIFT SUMMARY 81 YR M ADMITTED FOR ENCEPHALOPATHY. DNR. NO ACUTE CHANGES THIS SHIFT. PT HAS SLEPT OFF AND ON FOR THIS SHIFT BUT ONLY APPEARED TO HAVE SLIGHT CONFUSION WHEN AWAKE AND COMMUNICATING.
[2022-07-05 06:02] LABS: BASOPHILS ABSOLUTE AUTO 0.02 K/mm3 (0.00-0.23); BASOPHILS PERCENT AUTO 0 % (0-2); EOSINOPHILS ABSOLUTE AUTO 0.22 K/mm3 (0.00-0.68); EOSINOPHILS PERCENT AUTO 4 % (0-6); Hematocrit 24.9 % (37.0-53.0); IMMATURE GRAN ABSOLUTE AUTO 0.01 K/mm3 (0.00-0.10); IMMATURE GRAN PERCENT AUTO 0 % (0-1); LYMPHOCYTES ABSOLUTE AUTO 1.13 K/mm3 (0.84-5.20); LYMPHOCYTES PERCENT AUTO 21 % (21-46); MONOCYTES ABSOLUTE AUTO 0.51 K/mm3 (0.16-1.47); MONOCYTES PERCENT AUTO 10 % (4-13); Mean Corpuscular HGB 33.2 pg (26.0-34.0); Mean Corpuscular HGB Conc 32.1 g/dL (31.5-36.5); Mean Corpuscular Volume 103 fL (80-100); Mean Platelet Volume 9.3 fL (9.1-12.4); NEUTROPHILS ABSOLUTE AUTO 3.39 K/mm3 (1.96-9.15); NEUTROPHILS PERCENT AUTO 64 % (41-73); Platelet Count 212 K/mm3 (150-400); RDW Coefficient Variation 13.7 % (11.7-14.2); RDW Standard Deviation 52.6 fL (35.1-46.3); Red Blood Cell Count 2.41 M/mm3 (4.30-5.90); White Blood Cell Count 5.28 K/mm3 (4.00-11.30)
[2022-07-05 06:14] LABS: Bun/Creatinine Ratio 8.1 (12.0-20.0); Creatinine, Blood 1.35 mg/dL (0.60-1.20); Potassium, Blood 3.8 mmol/L (3.5-5.5)
--- NOTE | 2022-07-05 12:54 | NUR ---
TELE DC'D AT THIS TIME PER ORDER
--- NOTE | 2022-07-05 13:27 | NUR ---
Brief supportive visit this afternoon. Spoke with Primary RN and discussed case. Pt's mentation as improved but does experience some forgetfullness. Pt sitting in chair upon arrival. Pt denies pain and dyspnea at this time. Pt reports potential plan to D/C home tomorrow. Continued supportive visit. Palliative Care will F/U for some advanced care planning when family is at bedside.
--- NOTE | 2022-07-05 18:25 | NUR ---
SUMMARY: NO ACUTE CHANGE TODAY. VSS, A/O. PT FAMILY REPORTS PT'S CONFUSION IMPROVING. PT ABLE TO WORK WITH THERAPY AND AMBULATE TO BATHROOM, NEEDS 1-2 ASSIST. SP02 STABLE ON RA TODAY, CONTINIOUS OXIMETRY IN PLACE. ABX INFUSED, TELE DC'D. NO SAFETY CONCERNS.
--- NOTE | 2022-07-06 05:04 | NUR ---
SUMMARY: PATIENT DID WELL OVERNIGHT, NO ACUTE EVENTS. IV ABX GIVEN. PATIENT AOX4 BUT FORGETFUL AT TIMES. PLEASANT AND COMPLIENT WITH CARE. PATIENT INCONTINENT, CHANGED BREIFS FREQUENTLY OVERNIGHT. PATIENT MOVING WELL IN BED, HE VERBALIZED HE FEELS A LOT STRONGER. CPAP WORN AT NIGHT WITH 2L O2. VSS.
[2022-07-06] MEDS ORDERED: B-1100 M1 PO (12:46)
--- NOTE | 2022-07-06 14:07 | NUR ---
RN NOTE MR HARRIS IS ALERT, SITTING UP IN CHAIR, ASSISTED WITH 2 PEOPLE, GAIT BELT AND WALKER. UNSTEADY STANDING AND WALKING, CHAIR AND BED ALARMS USED. ORIENTATED TO SELF AND MONTH/YEAR AND [place]. GENERALLY CONFUSED AND FORGETFUL. INCONTINENT OF URINE THIS AM. POOR SKIN INTEGRITY WITH SKIN TEARS TO R HAND AND R ARM PLUS R INDEX FINGER. BRUISES NOTED TO BOTH ARMS. AT BEDSIDE. DISCHARGE INSTRUCTIONS GIVEN TO , SHE VERBALISED GOOD UNDERSTANDING OF WRITTEN ADN VERBAL INSTRUCTIONS. TRANSPORT ARRAGED BY [facility] [employer] [facility] [employer] FOR 1445HRS. PIV REMOVED INTACT. PT IS AWAITING TRANSPORT FOR DISCHARGE.
--- NOTE | 2022-07-06 15:13 | NUR ---
TRANSPORT CAME FOR PT AT ~ 1500HRS.
== END 2022-07-06 15:12 | disposition home health service (06) | DRG 177 ==
LOC: ER 18:23 → MEDS 07-03 00:28
PROVIDERS: Emergency Medicine; Internal Medicine; Student in an Organized Health Care Education/Training Program; ADMIT Internal Medicine
PROC: 5A09357 Assistance with Respiratory Ventilation, Less than 24 Consecutive Hours, Continuous Positive Airway Pressure (ICD-10-PCS; principal; 2022-07-03)
DX: J69.0 Pneumonitis due to inhalation of food and vomit (principal); G92.8 Other toxic encephalopathy; J96.01 Acute respiratory failure with hypoxia; I48.20 Chronic atrial fibrillation, unspecified; I50.32 Chronic diastolic (congestive) heart failure; N17.9 Acute kidney failure, unspecified; I13.0 Hypertensive heart and chronic kidney disease with heart failure and stage 1 through stage 4 chronic kidney disease, or unspecified chronic kidney disease; R94.6 Abnormal results of thyroid function studies; D63.1 Anemia in chronic kidney disease; N18.30 Chronic kidney disease, stage 3 unspecified; F03.90 Unspecified dementia, unspecified severity, without behavioral disturbance, psychotic disturbance, mood disturbance, and anxiety; I27.20 Pulmonary hypertension, unspecified; Z66 Do not resuscitate; M10.9 Gout, unspecified; G47.33 Obstructive sleep apnea (adult) (pediatric); Z20.822 Contact with and (suspected) exposure to COVID-19; E66.01 Morbid (severe) obesity due to excess calories; I95.9 Hypotension, unspecified; H10.33 Unspecified acute conjunctivitis, bilateral; D53.9 Nutritional anemia, unspecified; F10.26 Alcohol dependence with alcohol-induced persisting amnestic disorder; E86.0 Dehydration; E83.42 Hypomagnesemia; Z87.39 Personal history of other diseases of the musculoskeletal system and connective tissue; Z68.29 Body mass index [BMI] 29.0-29.9, adult; Z90.49 Acquired absence of other specified parts of digestive tract; Z91.14 Patient's other noncompliance with medication regimen; Z98.890 Other specified postprocedural states; Z99.81 Dependence on supplemental oxygen; Z98.52 Vasectomy status; Z88.2 Allergy status to sulfonamides
CPT/HCPCS: 0241U; 36415; 51701; 71045; 80048; 80053; 81003; 82140; 82607; 82746; 82803; 83002; 83735; 83880; 84145; 84146; 84439; 84443; 84481; 85025; 85610; 92526; 92610; 93005; 93010; 94660; 94762; 96365-59; 96366-59; 96367-59; 96375-59; 97110; 97162; 97165; 97530; 97535; 99285-25; A9270; G0480; J0295; J0456; J0696; J3411; J3475; J7030; J7042; J7050

== ENCOUNTER → 2024-06-16 | Outpatient (CLI) | payer MEDICARE ==
[~2024-06-16] MED LIST changes: +AMOCLA875 PO; +B-1100 M1 PO; +EUTHYROX175 MC1 PO; +FUROSEMIDE40 MG PO; +LEVSOD100 PO; +METO25 PO; +MULVITA PO; +PROBIOTIC1 EA14 PO; +TOCO1000 PO; +Tobrex5 ML BOTHEYES
[2024-06-16 19:33] LABS: BASOPHILS ABSOLUTE AUTO 0.04 K/mm3 (0.00-0.23); BASOPHILS PERCENT AUTO 1 % (0-2); EOSINOPHILS PERCENT AUTO 1 % (0-6); Hematocrit 36.8 % (37.0-53.0); Hemoglobin 12.1 g/dL (13.5-17.5); IMMATURE GRAN ABSOLUTE AUTO 0.02 K/mm3 (0.00-0.10); IMMATURE GRAN PERCENT AUTO 0 % (0-1); LYMPHOCYTES ABSOLUTE AUTO 0.87 K/mm3 (0.84-5.20); LYMPHOCYTES PERCENT AUTO 11 % (21-46); MONOCYTES ABSOLUTE AUTO 0.61 K/mm3 (0.16-1.47); MONOCYTES PERCENT AUTO 8 % (4-13); Mean Corpuscular HGB 30.1 pg (26.0-34.0); Mean Corpuscular HGB Conc 32.9 g/dL (31.5-36.5); Mean Corpuscular Volume 92 fL (80-100); Mean Platelet Volume 10.7 fL (9.1-12.4); NEUTROPHILS ABSOLUTE AUTO 5.99 K/mm3 (1.96-9.15); NEUTROPHILS PERCENT AUTO 79 % (41-73); Platelet Count 228 K/mm3 (150-400); RDW Coefficient Variation 12.8 % (11.7-14.2); RDW Standard Deviation 42.3 fL (35.1-46.3); Red Blood Cell Count 4.02 M/mm3 (4.30-5.90); White Blood Cell Count 7.63 K/mm3 (4.00-11.30)
[2024-06-16 20:23] LABS: Albumin, Blood 3.6 g/dL (3.4-5.0); Albumin/Globulin Ratio 0.9 (0.8-1.8); Bilirubin, Total 0.8 mg/dL (0.1-1.0); Bun/Creatinine Ratio 14.6 (12.0-20.0); Calcium, Blood 9.1 mg/dL (8.5-10.1); Creatinine, Blood 1.98 mg/dL (0.60-1.20); Globulin, Blood 4.1 g/dL (2.2-4.0); Potassium, Blood 4.5 mmol/L (3.5-5.5); Thyroid Stimulating Hormone 0.209 uIU/mL (0.360-4.800); Total Protein, Blood 7.7 g/dL (6.4-8.2)
== END ==
LOC: LAB SHORT 16:41 → LAB 16:41
PROVIDERS: Family Medicine
DX: E03.9 Hypothyroidism, unspecified (principal); M86.60 Other chronic osteomyelitis, unspecified site
CPT/HCPCS: 80053; 84443; 85025; 85651

== ENCOUNTER 2024-07-20 19:14 | Inpatient (IN) | payer MEDICARE ==
[~2024-07-20] VITALS: Ht 180.3 cm; Wt 103.9 kg
[2024-07-20 19:28] LABS: BASOPHILS ABSOLUTE AUTO 0.05 K/mm3 (0.00-0.23); BASOPHILS PERCENT AUTO 0 % (0-2); EOSINOPHILS ABSOLUTE AUTO 0.07 K/mm3 (0.00-0.68); EOSINOPHILS PERCENT AUTO 1 % (0-6); Hematocrit 34.5 % (37.0-53.0); IMMATURE GRAN ABSOLUTE AUTO 0.06 K/mm3 (0.00-0.10); IMMATURE GRAN PERCENT AUTO 1 % (0-1); LYMPHOCYTES ABSOLUTE AUTO 1.71 K/mm3 (0.84-5.20); LYMPHOCYTES PERCENT AUTO 15 % (21-46); MONOCYTES ABSOLUTE AUTO 1.16 K/mm3 (0.16-1.47); MONOCYTES PERCENT AUTO 10 % (4-13); Mean Corpuscular HGB 29.9 pg (26.0-34.0); Mean Corpuscular HGB Conc 31.9 g/dL (31.5-36.5); Mean Corpuscular Volume 94 fL (80-100); NEUTROPHILS PERCENT AUTO 73 % (41-73); Platelet Count 203 K/mm3 (150-400); RDW Coefficient Variation 13.2 % (11.7-14.2); RDW Standard Deviation 45.5 fL (35.1-46.3); Red Blood Cell Count 3.68 M/mm3 (4.30-5.90); White Blood Cell Count 11.35 K/mm3 (4.00-11.30)
[2024-07-20 19:32] LABS: PCO2 Venous 61.6 mmHg (38-42); pH Blood Venous 7.23 (7.34-7.37)
[2024-07-20 19:45] LABS: Albumin, Blood 3.6 g/dL (3.4-5.0); Bilirubin, Total 1.1 mg/dL (0.1-1.0); Bun/Creatinine Ratio 20.1 (12.0-20.0); Calcium, Blood 8.6 mg/dL (8.5-10.1); Creatinine, Blood 1.89 mg/dL (0.60-1.20); Globulin, Blood 3.7 g/dL (2.2-4.0); Potassium, Blood 4.5 mmol/L (3.5-5.5); Total Protein, Blood 7.3 g/dL (6.4-8.2)
[2024-07-20 20:03] LABS: International Normalized Ratio 1.15; Prothrombin Time Results 12.2 Sec (9.7-11.5)
[2024-07-20 20:16] LABS: Influenza A, PCR NEGATIVE (NEGATIVE); Influenza B, PCR NEGATIVE (NEGATIVE); Resp Syncytial Virus, PCR NEGATIVE (NEGATIVE); SARS-Cov-2 (COVID-19) PCR, MMC NEGATIVE (NEGATIVE)
[2024-07-20] MEDS ORDERED: Furosemide 10 MG/ML 4ML Vial IV ONE (20:40)
[2024-07-20] MEDS ORDERED: FLU VACC TS2024-25(6MOS UP)/PF 45 MCG/0.5 ML SYRINGE IM SCH (20:50)
[2024-07-20] MEDS ORDERED: Ondansetron HCl 2 MG / ML 2ML Vial IV PRN (20:55)
[2024-07-20] MEDS ORDERED: Acetaminophen 325 MG TABLET PO PRN (20:55)
[2024-07-20] MEDS ORDERED: Metoprolol Tartrate 25 MG Tab PO SCH (21:00)
[2024-07-20] MEDS ORDERED: Apixaban 5 MG Tab PO SCH (21:00)
[2024-07-20 22:52] VITALS: BP 136/76
[2024-07-20 23:00] VITALS: BP 133/68
[2024-07-20] MEDS ORDERED: AMLODIPINE BESY10 MG PO (23:04)
[2024-07-20] MEDS ORDERED: AMOX-CLAV 500-1 EAC5 (23:05)
[2024-07-20 23:15] VITALS: BP 133/81
[2024-07-20 23:30] VITALS: BP 135/88
[2024-07-20 23:45] LABS: Base Excess Venous -0.9 mmol/L; Bicarbonate Venous 22.8 mmol/L (24.0-30.0); PCO2 Venous 57.6 mmHg (38-42); pH Blood Venous 7.26 (7.34-7.37)
[2024-07-21] VITALS (13 sets, daily range): BP systolic 119–172; BP diastolic 65–104
--- NOTE | 2024-07-21 00:15 | NUR ---
ADMIT 2245 RECIEVED PT FROM ED VIA STRETCHER, TRANSFERRED TO BED VIA SLIDE SHEET, PT ALERT AND ORIENTED X4, FOLLOWS COMMANDS, ABLE TO MAKE NEEDS KNOWN, NOTED SOB WITH EXERTION OF TURNING AND REPOSTIONING, RT AT BEDSIDE, PT ON BIPAP AND INCREASED FIO2 FROM 40% TO 70% WITH SPO2 INCREASING FROM 80% TO >90%, ADMIT ASSESSMENT COMPLETE, SPOUSE AT BEDSIDE WITH HOME MEDS VERIFIED, PT ORIENTED TO ROOM, BED CONTROLS, CALL LIGHT, DENEIS C/O PAIN OR NEEDS AT THIS TIME, AFEBRILE, AFIB 60S, SBP 130S, SIDE RAILS UPX2 CALL LIGHT IN REACH
[2024-07-21] MEDS ORDERED: Albuterol 2.5 MG/3 ML VIAL INH PRN (02:15)
[2024-07-21 04:22] LABS: BASOPHILS ABSOLUTE AUTO 0.01 K/mm3 (0.00-0.23); BASOPHILS PERCENT AUTO 0 % (0-2); EOSINOPHILS ABSOLUTE AUTO 0.01 K/mm3 (0.00-0.68); EOSINOPHILS PERCENT AUTO 0 % (0-6); Hematocrit 34.2 % (37.0-53.0); Hemoglobin 11.3 g/dL (13.5-17.5); IMMATURE GRAN ABSOLUTE AUTO 0.04 K/mm3 (0.00-0.10); IMMATURE GRAN PERCENT AUTO 1 % (0-1); LYMPHOCYTES ABSOLUTE AUTO 0.31 K/mm3 (0.84-5.20); LYMPHOCYTES PERCENT AUTO 4 % (21-46); MONOCYTES ABSOLUTE AUTO 0.05 K/mm3 (0.16-1.47); MONOCYTES PERCENT AUTO 1 % (4-13); Mean Corpuscular HGB 30.2 pg (26.0-34.0); Mean Corpuscular Volume 91 fL (80-100); Mean Platelet Volume 9.9 fL (9.1-12.4); NEUTROPHILS ABSOLUTE AUTO 7.87 K/mm3 (1.96-9.15); NEUTROPHILS PERCENT AUTO 95 % (41-73); Platelet Count 191 K/mm3 (150-400); RDW Coefficient Variation 13.2 % (11.7-14.2); RDW Standard Deviation 44.5 fL (35.1-46.3); Red Blood Cell Count 3.74 M/mm3 (4.30-5.90); White Blood Cell Count 8.29 K/mm3 (4.00-11.30)
[2024-07-21 04:57] LABS: Albumin, Blood 3.3 g/dL (3.4-5.0); Albumin/Globulin Ratio 0.8 (0.8-1.8); Bilirubin, Total 0.9 mg/dL (0.1-1.0); Bun/Creatinine Ratio 19.6 (12.0-20.0); Calcium, Blood 8.7 mg/dL (8.5-10.1); Creatinine, Blood 2.09 mg/dL (0.60-1.20); Magnesium, Blood 2.2 mg/dL (1.6-2.4); Potassium, Blood 5.6 mmol/L (3.5-5.5); Thyroid Stimulating Hormone 0.278 uIU/mL (0.360-4.800); Total Protein, Blood 7.3 g/dL (6.4-8.2)
--- NOTE | 2024-07-21 05:37 | NUR ---
update called and spoke with Dr Maradiaga, notified of potassium 5.6
[2024-07-21] MEDS ORDERED: Levothyroxine Sodium 0.1 MG Tab PO SCH (06:00)
--- NOTE | 2024-07-21 06:04 | NUR ---
UPDATE DR KO AT BEDSIDE, DISCUSSED LAB RESULTS, WILL HOLD AM SCHEDULED POTASSIUM PER
--- NOTE | 2024-07-21 06:19 | NUR ---
SHIFT SUMMARY ALERT AND ORIENTED X4, FOLLOWS COMMANDS, ABLE TO MAKE NEEDS KNOWN, DENIES C/O PAIN, VSS, AFEBRILE, REMAINS ON BIPAP 70% FIO2, SPO2>90%, AFIB RHYTHM 60-70S BPM, AM MEDS GIVEN PO WITH NOTED COUGHING AFTER SIPS OF WATER, BLADDER SCAN DONE AFTER NOTING OML IN SUCTION CANNISTER WITH PURWICK IN PLACE, 146ML NOTED IN BLADDER AND PT STATES HE DOESNT NEED TO GO YET. DR KO AWARE, SIDE RAILS UP X2, CALL LIGHT IN REACH
--- NOTE | 2024-07-21 07:01 | NUR ---
update received call from us for thoracentesis, pt recieved scheduled eliquis at 2146 last night, thoracentesis will be placed on hold for 2 days for eliquis to bed held for 48 hours, ,called to notify dr golden with new order received to hold eliquis for 48 hours
[2024-07-21] MEDS ORDERED: Furosemide 10 MG/ML 4ML Vial IV SCH (09:00)
[2024-07-21] MEDS ORDERED: Potassium Chloride 20 MEQ TabCR PO SCH (09:00)
[2024-07-21] MEDS ORDERED: Empagliflozin 10 MG TAB PO SCH (14:00)
--- NOTE | 2024-07-21 15:23 | NUR ---
CLARIFIED CODE STATUS: DNR/SELECTIVE MEDICAL INTERVENTION PT LIKES TO BE ADDRESSED IVY. THIS PC RN MET WITH PT AND HIS SPOUSE, JUDY AT BEDSIDE TO REVIEW POLST FORM ON FILE DATED 11/18/14. THEY BOTH CONFIRMED DNR/LIMITED FILLED OUT. THEN PRESENTED A POLST DATED 06/10/2020, THAT POLST CONFIRMED SAME REQUEST, DNR/LIMITED. HOWEVER, POLST DATED 06/10/2020, PT'S LAST NAME IS SPELLED INCORRECTLY. NEW POLST FILLED OUT WITH CORRECTED SPELLING AND ADDED EMERGENCY CONTACT INFORMATION. POLST FORM HANGING ON PT'S WHITE BOARD, PENDING PROVIDER SIGNATURE. SAMPLE COLLECTOR NOTIFIED PROVIDER OF NEED TO UPDATE POLST.
[2024-07-21] MEDS ORDERED: HyDROXyzine HCl 25 MG Tab PO PRN (15:55)
--- NOTE | 2024-07-21 15:57 | NUR ---
MORNING SUMMARY THE PT IS A&oX4, CALLS APPROPRAITELY, AND MAKES HIS NEEDS KNOWN. THE PT HAS BEEN IN BED THIS SHIFT AND GAIT HAS NOT BEEN TESTED AT THIS TIME. THE PT IS C/O SOME ANXIETY R/T BEING IN THE HOSPITAL; DR. BARRERA STARTED THE PT ON ATARAX 25MG Q8P. ON TELE THE PT IS AFIB 70'S-80'S, BP STABLE. HE HAS BEEN ON THE BIPAP 14/8 @ 55% MAJORITY OF THE DAY, BUT CAN TOLERATE BEING ON 15LHFN ON BIPAP BREAKS. PT IS NOW ON A HH DIET AND TOLERATING PO INTAKE. HE HAS A MALE PURWICK SET UP TO SUCTION, AND IT WAS CHANGED THIS SHIFT D/T LEAKING. THE PT HAD AN ECHO TODAY, RESULTS PENDING. HIS JUDY WAS AT BEDSIDE AND UPDATED ON CARE. BRITNI Santos RN WILL ASSUME PRIMARY CARE OF THIS PT AT THIS TIME, AND THIS RN WILL BE PRECEPTING BRITNI. SEE NOTES FOR UPDATES.
[2024-07-21] MEDS ORDERED: Bumetanide 0.25 MG/ML 4ML ViaL IV SCH (18:00)
[2024-07-22] VITALS (7 sets, daily range): BP systolic 131–148; BP diastolic 61–95
[2024-07-22 04:59] LABS: Bun/Creatinine Ratio 23.3 (12.0-20.0); Calcium, Blood 8.6 mg/dL (8.5-10.1); Creatinine, Blood 2.45 mg/dL (0.60-1.20); Magnesium, Blood 2.2 mg/dL (1.6-2.4)
[2024-07-22] MEDS ORDERED: Levothyroxine Sodium 0.175 MG TAB PO SCH (06:00)
--- NOTE | 2024-07-22 06:38 | NUR ---
SHIFT SUMMARY NO ACUTE EVENTS THIS SHIFT, PT ALERT AND ORIENTED X4, FOLLOWS COMMANDS, ABLE TO MAKE NEEDS KNOWN, ON BIPAP AT 60% FIO2 ALL SHIFT, TOLERATING WELL, SPO2 >90%, ON TELE AFIB RHYTHM 60-70S, SBP 130S, AFEBRILE, MALE PUREWICK IN PLACE AND PATENT WITH NOTED CLEAR YELLOW URINE IN CANNISTER, SCHEDULED MEDS GIVEN PO AT HS, PT SWALLOWED WITHOUT DIFFICULTY, MEDICATED X1 WITH TYLENOL FOR C/O BLE PAIN/CRAMPING, TYLENOL EFFECTIVE, SIDE RAILS UP X2 BED ALARM ON , CALL LIGHT IN REACH
--- NOTE | 2024-07-22 10:49 | NUR ---
am note this rn assumed care at 0700. vital signs stable. patient is alert and oriented x4. neuro is intact. denies pain, chest pain/pressure. patient becoems short of breath with activity. patient on bipap and switches over to 15l high flow nasal cannula when eating. see shift assessment for further detials. md palomino in room and discussed plan of care. continue to diuersis and watch intake and output. plan for thora this afternoon. plan is up to date
--- NOTE | 2024-07-22 16:16 | NUR ---
UPDATE-THORA patient went down for thora and had 1.2l removed. patient oxygen at 12l nc high flow. will titrate as able too. patient states feeling relief already.
--- NOTE | 2024-07-22 18:10 | NUR ---
SHIFT SUMMARY patient neuro remains intact. vitals stable. see previous notes. no acute changes throughout the shift
[2024-07-23] VITALS (7 sets, daily range): BP systolic 120–155; BP diastolic 65–104
[2024-07-23 04:59] LABS: Bun/Creatinine Ratio 24.4 (12.0-20.0); Calcium, Blood 8.3 mg/dL (8.5-10.1); Creatinine, Blood 2.62 mg/dL (0.60-1.20); Potassium, Blood 4.2 mmol/L (3.5-5.5)
--- NOTE | 2024-07-23 18:33 | NUR ---
SHIFT SUMMARY Pt on HFNC all day today, currently at 6L. Plesant with cares. Dr. Alexandra consulted d/t worsening renal function. UA sent for random urine and creat. - see results. and bedside and update on plan of care.
[2024-07-23] MEDS ORDERED: Losartan Potassium 25 MG Tab PO SCH (21:00)
[2024-07-24 04:30] VITALS: BP 133/70
[2024-07-24 04:44] LABS: Bun/Creatinine Ratio 25.2 (12.0-20.0); Calcium, Blood 8.4 mg/dL (8.5-10.1); Creatinine, Blood 2.62 mg/dL (0.60-1.20); Potassium, Blood 3.9 mmol/L (3.5-5.5)
[2024-07-24 07:24] VITALS: BP 143/70
[2024-07-24] MEDS ORDERED: Spironolactone 25 MG Tab PO SCH (09:00)
[2024-07-24] MEDS ORDERED: Bumetanide 1 MG Tab PO SCH (09:00)
[2024-07-24] MEDS ORDERED: JARDIANCE10 MG PO (12:17)
[2024-07-24] MEDS ORDERED: BUME2 PO (12:17)
[2024-07-24] MEDS ORDERED: LOSARTAN POTASS25 M1 PO (12:18)
[2024-07-24] MEDS ORDERED: METO25 PO (12:19)
[2024-07-24] MEDS ORDERED: SPIR25 PO (12:19)
[2024-07-24] MEDS ORDERED: EUTHYROX175 MCG PO (12:19)
[2024-07-24] MEDS ORDERED: Spironolactone 25 MG Tab PO ONE (14:00)
[2024-07-24] MEDS ORDERED: Losartan Potassium 25 MG Tab PO ONE (14:00)
[2024-07-24] MEDS ORDERED: Apixaban 5 MG Tab PO ONE (14:00)
[2024-07-24] MEDS ORDERED: Metoprolol Tartrate 25 MG Tab PO ONE (14:00)
--- NOTE | 2024-07-24 14:06 | NUR ---
DISCHARGE: PT D/C PCU 18 @1406 VIA WHEELCHAIR. DISCHARGE INSTRUCTIONS AND EDUCATION PROVIDED. ALL BELONGINGS WITH PT.
== END 2024-07-24 14:21 | disposition home health service (06) | DRG 291 ==
LOC: ER 19:14 → ERHOLD 20:48 → PCU 20:48
PROVIDERS: Emergency Medicine; Internal Medicine; ADMIT Student in an Organized Health Care Education/Training Program
PROC: 5A09357 Assistance with Respiratory Ventilation, Less than 24 Consecutive Hours, Continuous Positive Airway Pressure (ICD-10-PCS; principal; 2024-07-20)
PROC: 5A0935A Assistance with Respiratory Ventilation, Less than 24 Consecutive Hours, High Flow/Velocity Cannula (ICD-10-PCS; 2024-07-22)
PROC: 0W993ZZ Drainage of Right Pleural Cavity, Percutaneous Approach (ICD-10-PCS; 2024-07-22)
DX: I13.0 Hypertensive heart and chronic kidney disease with heart failure and stage 1 through stage 4 chronic kidney disease, or unspecified chronic kidney disease (principal); I50.33 Acute on chronic diastolic (congestive) heart failure; J96.01 Acute respiratory failure with hypoxia; J96.02 Acute respiratory failure with hypercapnia; I48.20 Chronic atrial fibrillation, unspecified; N17.9 Acute kidney failure, unspecified; J91.8 Pleural effusion in other conditions classified elsewhere; Z66 Do not resuscitate; E66.01 Morbid (severe) obesity due to excess calories; N18.32 Chronic kidney disease, stage 3b; G47.33 Obstructive sleep apnea (adult) (pediatric); E03.9 Hypothyroidism, unspecified; F03.A0 Unspecified dementia, mild, without behavioral disturbance, psychotic disturbance, mood disturbance, and anxiety; F10.10 Alcohol abuse, uncomplicated; Z90.49 Acquired absence of other specified parts of digestive tract; Z90.89 Acquired absence of other organs; Z87.2 Personal history of diseases of the skin and subcutaneous tissue; Z88.2 Allergy status to sulfonamides; Z79.891 Long term (current) use of opiate analgesic; Z79.899 Other long term (current) drug therapy; Z79.01 Long term (current) use of anticoagulants; Z79.3 Long term (current) use of hormonal contraceptives; Z79.2 Long term (current) use of antibiotics; Z68.30 Body mass index [BMI] 30.0-30.9, adult; Z99.81 Dependence on supplemental oxygen; Z98.890 Other specified postprocedural states; Z79.890 Hormone replacement therapy; Z98.52 Vasectomy status
CPT/HCPCS: 0241U; 32555; 36415; 71045; 76705; 80048; 80053; 80320; 82140; 82570; 82803; 82947; 83036; 83735; 83880; 84300; 84443; 84484; 85025; 85610; 93005; 93010; 94660; 94762; 97116; 97161; 97530; 99285-25; A9270; C8929; J1940; Q9957